=== PATIENT | male | born 1940 | race Caucasian/White ===

== ENCOUNTER 2017-01-23 11:40 | Observation (INO) | payer MEDICARE, OTHER ==
[~2017-01-23] VITALS: Ht 162.6 cm; Wt 91.0 kg
[2017-01-23] VITALS (9 sets, daily range): BP systolic 121–178; BP diastolic 58–75; PULSE 43–59; RESP 16–18; TEMP 97.5–98.6; O2SAT 92–98
--- NOTE | 2017-01-23 12:03 | PD ---
HPI Chief Complaint: Respiratory Symptoms Time Seen by Provider: 11:53 Travel History International Travel<30 days: No Contact w/Intl Traveler<30days: No Traveled to known affect area: No History of Present Illness HPI 76-year-old male with history of type 2 diabetes, hyperlipidemia, hypertension, GERD, gout, sleep apnea, PTSD, presents to emergency department today from the [place] for evaluation of bradycardia and hypotension. Patient had an appointment there for worsening shortness of breath, increased fatigue and exercise intolerance. He recently moved from [place] and today was his first visit there. Patient states his symptoms have been worsening over the last several weeks to months. He has been seen and evaluated up in [place]. He reports having a stress test in the last year that was normal. A recent illnesses, fever, or chills. Patient states that even the most minimal activity he is short of breath. He does take metoprolol and states his heart rate is typically in the low 50s but never as low as it was today. Denies any chest pain. States there have been times over the last several weeks where he's had a chest pressure that did not radiate anywhere but sat heavily on the left chest. He is having this symptom now. He has no other symptoms to report. PFSH Past Medical History Anxiety: Yes Depression: Yes Coronary Artery Disease: Yes Diabetes: Yes Respiratory: Yes (SLEEP APNEA) Social History Alcohol Use: No Tobacco Use: No Substance Use: No Allergies-Medications (Allergen,Severity, Reaction): Coded Allergies: No Known Allergies (Unverified , 01/23/17) Reported Meds & Prescriptions Reported Meds & Active Scripts Active Reported Flomax (Tamsulosin HCl) 0.4 Mg Cap 0.8 Mg PO HS Lopressor (Metoprolol Tartrate) 100 Mg Tab 100 Mg PO Q12HR Cozaar (Losartan Potassium) 100 Mg Tab 100 Mg PO DAILY Lidocaine Patch 12 HR (Lidocaine) 5 % Patch 1 Patch TOPICAL DAILY Remove patch after 12 hours Fluticasone Nasal [place] 50 Mcg/Act Naspr 2 [place] EACH NARE DAILY 50 mcg/spray Lipitor (Atorvastatin Calcium) 20 Mg Tab 10 Mg PO HS Amlodipine (Amlodipine Besylate) 10 Mg Tab 10 Mg PO DAILY Zoloft (Sertraline HCl) 100 Mg Tab 150 Mg PO DAILY Pramipexole (Pramipexole Dihydrochloride) 1 Mg Tab 1 Mg PO HS Omeprazole 20 Mg Tab 20 Mg PO DAILY Naprosyn (Naproxen) 500 Mg Tab 500 Mg PO BID Take with food or milk-Do not take meloxicam while taking this medication Ipratropium Nasal 0.06% [place] 2 [place] EACH NARE BID Capsaicin Topical (Capsaicin) 0.1% Cream 1 Applic TOPICAL DAILY PRN Wash hands immediately after use Bupropion HCl ER 24 HR (Bupropion HCl) 150 Mg Tab 150 Mg PO DAILY Aspirin Adult Low Strength (Aspirin) 81 Mg Tabdr 81 Mg PO DAILY Alprazolam 0.5 Mg Tab 0.5 Mg PO BID PRN Review of Systems Except as stated in HPI: all other systems reviewed are Neg Physical Exam Narrative GENERAL: Well-nourished male patient, lying in bed, in no acute distress. SKIN: Focused skin assessment warm/dry. HEAD: Atraumatic. Normocephalic. EYES: Pupils equal and round. No scleral icterus. No injection or drainage. ENT: No nasal bleeding or discharge. Mucous membranes pink and moist. NECK: Trachea midline. No JVD. CARDIOVASCULAR: Bradycardic rate and rhythm. RESPIRATORY: No accessory muscle use. Diminished, likely due to girth to auscultation. Breath sounds equal bilaterally. GASTROINTESTINAL: Abdomen soft, non-tender, nondistended. Hepatic and splenic margins not palpable. MUSCULOSKELETAL: No obvious deformities. No clubbing. No cyanosis. No edema. NEUROLOGICAL: Awake and alert. No obvious cranial nerve deficits. Motor grossly within normal limits. Normal speech. PSYCHIATRIC: Appropriate mood and affect; insight and judgment normal. Data Data Last Documented VS Vital Signs Date Time Temp Pulse Resp B/P (MAP) Pulse Ox O2 Delivery O2 Flow Rate FiO2 01/23/17 12:59 46 16 97 Nasal Cannula 2.00 01/23/17 11:43 97.5 Orders Orders Complete Blood Count With Diff (01/23/17 12:03) Basic Metabolic Panel (Bmp) (01/23/17 12:03) B-Type Natriuretic Peptide (01/23/17 12:03) Act Partial Throm Time (Ptt) (01/23/17 12:03) Prothrombin Time / Inr (Pt) (01/23/17 12:03) Magnesium (Mg) (01/23/17 12:03) Ckmb (Isoenzyme) Profile (01/23/17 12:03) Troponin I (01/23/17 12:03) Iv Access Insert/Monitor (01/23/17 12:03) Electrocardiogram (01/23/17 12:03) Ecg Monitoring (01/23/17 12:03) Oximetry (01/23/17 12:03) Oxygen Administration (01/23/17 12:03) Chest, Single Ap (01/23/17 12:03) CKMB (01/23/17 12:15) CKMB% (01/23/17 12:15) Labs Laboratory Tests Test 01/23/17 12:15 White Blood Count 8.4 TH/MM3 Red Blood Count 4.75 MIL/MM3 Hemoglobin 14.2 GM/DL Hematocrit 43.1 % Mean Corpuscular Volume 90.8 FL Mean Corpuscular Hemoglobin 29.9 PG Mean Corpuscular Hemoglobin Concent 32.9 % Red Cell Distribution Width 12.7 % Platelet Count 288 TH/MM3 Mean Platelet Volume 8.3 FL Neutrophils (%) (Auto) 75.3 % Lymphocytes (%) (Auto) 13.7 % Monocytes (%) (Auto) 8.7 % Eosinophils (%) (Auto) 1.5 % Basophils (%) (Auto) 0.8 % Neutrophils # (Auto) 6.3 TH/MM3 Lymphocytes # (Auto) 1.2 TH/MM3 Monocytes # (Auto) 0.7 TH/MM3 Eosinophils # (Auto) 0.1 TH/MM3 Basophils # (Auto) 0.1 TH/MM3 CBC Comment DIFF FINAL Differential Comment Prothrombin Time 10.8 SEC Prothromb Time International Ratio 1.0 RATIO Activated Partial Thromboplast Time 28.7 SEC Blood Urea Nitrogen 23 MG/DL Creatinine 1.32 MG/DL Random Glucose 111 MG/DL Calcium Level 9.4 MG/DL Magnesium Level 2.2 MG/DL Sodium Level 135 MEQ/L Potassium Level 4.7 MEQ/L Chloride Level 100 MEQ/L Carbon Dioxide Level 28.6 MEQ/L Anion Gap 6 MEQ/L Estimat Glomerular Filtration Rate 53 ML/MIN Total Creatine Kinase 286 U/L Creatine Kinase MB 5.9 NG/ML Troponin I LESS THAN 0.02 NG/ML B-Type Natriuretic Peptide 69 PG/ML MDM Medical Decision Making Medical Screen Exam Complete: Yes Emergency Medical Condition: Yes Medical Record Reviewed: Yes Differential Diagnosis CHF versus COPD versus anginal equivalent versus electrolyte abnormality versus neoplasm Narrative Course 76-year-old male presents to emergency department for evaluation from the [place]. Patient appears without distress. He is bradycardic here in the emergency department. Blood pressure is within normal limits. Laboratory Tests Test 01/23/17 12:15 White Blood Count 8.4 TH/MM3 Red Blood Count 4.75 MIL/MM3 Hemoglobin 14.2 GM/DL Hematocrit 43.1 % Mean Corpuscular Volume 90.8 FL Mean Corpuscular Hemoglobin 29.9 PG Mean Corpuscular Hemoglobin Concent 32.9 % Red Cell Distribution Width 12.7 % Platelet Count 288 TH/MM3 Mean Platelet Volume 8.3 FL Neutrophils (%) (Auto) 75.3 % Lymphocytes (%) (Auto) 13.7 % Monocytes (%) (Auto) 8.7 % Eosinophils (%) (Auto) 1.5 % Basophils (%) (Auto) 0.8 % Neutrophils # (Auto) 6.3 TH/MM3 Lymphocytes # (Auto) 1.2 TH/MM3 Monocytes # (Auto) 0.7 TH/MM3 Eosinophils # (Auto) 0.1 TH/MM3 Basophils # (Auto) 0.1 TH/MM3 CBC Comment DIFF FINAL Differential Comment Prothrombin Time 10.8 SEC Prothromb Time International Ratio 1.0 RATIO Activated Partial Thromboplast Time 28.7 SEC Blood Urea Nitrogen 23 MG/DL Creatinine 1.32 MG/DL Random Glucose 111 MG/DL Calcium Level 9.4 MG/DL Magnesium Level 2.2 MG/DL Sodium Level 135 MEQ/L Potassium Level 4.7 MEQ/L Chloride Level 100 MEQ/L Carbon Dioxide Level 28.6 MEQ/L Anion Gap 6 MEQ/L Estimat Glomerular Filtration Rate 53 ML/MIN Total Creatine Kinase 286 U/L Creatine Kinase MB 5.9 NG/ML Troponin I LESS THAN 0.02 NG/ML B-Type Natriuretic Peptide 69 PG/ML Last Impressions Chest X-Ray 01/23/17 1203 Signed Impressions: Service Date/Time: Monday, January 23, 2017 12:21 - CONCLUSION: The lungs are clear. Brice Call MD I have discussed the patient with my attending and we feel it would be in the best interest of the patient to admit observation of symptomatic bradycardia; consider holding metoprolol; and possibility of anginal equivocal. Plan is discussed with patient and his . They are in agreement with the splenic care. Diagnosis Primary Impression: Symptomatic bradycardia Admitting Information Admitting Physician Requests: Observation Condition: Stable Rosalinda Huddleston Jan 23, 2017 12:03
[2017-01-23] MEDS ORDERED: COZA100T PO (12:46)
[2017-01-23] MEDS ORDERED: OMEP20TA93 PO (12:46)
[2017-01-23] MEDS ORDERED: IPRA0.06 EACH NARE (12:46)
[2017-01-23] MEDS ORDERED: AMLO10TA2 PO (12:46)
[2017-01-23] MEDS ORDERED: PRAM1TAB PO (12:46)
[2017-01-23] MEDS ORDERED: LIDO1PAD52 TOPICAL (12:46)
[2017-01-23] MEDS ORDERED: CAPS0.1C2 TOPICAL (12:46)
[2017-01-23] MEDS ORDERED: NAPR500 PO (12:46)
[2017-01-23] MEDS ORDERED: ALPR0.5T3 PO (12:46)
[2017-01-23] MEDS ORDERED: ASPI81TA16 PO (12:46)
[2017-01-23] MEDS ORDERED: TAMS5CAP PO (12:46)
[2017-01-23] MEDS ORDERED: METO-338 PO (12:46)
[2017-01-23] MEDS ORDERED: LIPI20TA PO (12:46)
[2017-01-23] MEDS ORDERED: BUPR150T3 PO (12:46)
[2017-01-23] MEDS ORDERED: ZOLO100T PO (12:46)
[2017-01-23] MEDS ORDERED: FLUT50SP EACH NARE (12:46)
[2017-01-23 13:02] LABS: AUTOMATED NEUTROPHIL # 6.3 TH/MM3 (1.8-7.7); BASOPHIL # 0.1 TH/MM3 (0-0.2); BASOPHIL % 0.8 % (0.0-2.0); EOSINOPHIL # 0.1 TH/MM3 (0-0.4); EOSINOPHIL % 1.5 % (0.0-4.0); HEMATOCRIT 43.1 % (39.0-51.0); HEMOGLOBIN 14.2 GM/DL (13.0-17.0); LYMPH % 13.7 % (9.0-44.0); LYMPHOCYTE # 1.2 TH/MM3 (1.0-4.8); MEAN CELL VOLUME 90.8 FL (80.0-100.0); MEAN CORPUSCULAR HEMOGLOBIN 29.9 PG (27.0-34.0); MEAN CORPUSCULAR HGB CONC 32.9 % (32.0-36.0); MEAN PLATELET VOLUME 8.3 FL (7.0-11.0); MONO % 8.7 % (0.0-8.0); MONOCYTE # 0.7 TH/MM3 (0-0.9); NEUT % 75.3 % (16.0-70.0); PLATELET COUNT 288 TH/MM3 (150-450); RED BLOOD COUNT 4.75 MIL/MM3 (4.50-5.90); RED CELL DISTRIBUTION WIDTH 12.7 % (11.6-17.2); WHITE BLOOD COUNT 8.4 TH/MM3 (4.0-11.0)
--- NOTE | 2017-01-23 13:02 | RADRPT ---
EXAM DATE/TIME: 01/23/2017 12:21 [facility] COMPARISON: No previous studies available for comparison. INDICATIONS : Shortness of breath. MEDICAL HISTORY : Hypertension. SURGICAL HISTORY : None. ENCOUNTER: Initial ACUITY: 1 day PAIN SCORE: 0/10 LOCATION: Bilateral chest FINDINGS: A single view of the chest demonstrates the lungs to be symmetrically aerated without evidence of mas s, infiltrate or effusion. The cardiomediastinal contours are unremarkable. Osseous structures are intact. CONCLUSION: The lungs are clear. Brice Call MD on January 23, 2017 at 13:00 Board Certified Radiologist. This report was verified electronically.
[2017-01-23 13:12] LABS: PROTHROMBIN TIME - PATIENT 10.8 SEC (9.8-11.6)
[2017-01-23 13:20] LABS: BICARBONATE 28.6 MEQ/L (21.0-32.0); BLOOD UREA NITROGEN 23 MG/DL (7-18); CALCIUM 9.4 MG/DL (8.5-10.1); CHLORIDE 100 MEQ/L (98-107); CREATININE 1.32 MG/DL (0.60-1.30); GLOMERULAR FILTRATION RATE 53 ML/MIN (>89); GLUCOSE,RANDOM 111 MG/DL (74-106); MAGNESIUM 2.2 MG/DL (1.5-2.5); SODIUM (NA) 135 MEQ/L (136-145)
[2017-01-23 13:24] LABS: TROPONIN I LESS THAN 0.02 NG/ML (0.02-0.05)
[2017-01-23] MEDS ORDERED: SODIUM CHLORIDE 0.9% FLUSH 10 ML FLUSH IV FLUSH PRN (14:15)
[2017-01-23] MEDS ORDERED: BISACODYL 10 MG SUPP RECTAL PRN (14:15)
[2017-01-23] MEDS ORDERED: NALOXONE HCL 0.4 MG/ML AMP IV PUSH PRN (14:15)
[2017-01-23] MEDS ORDERED: SENNOSIDES 8.6 MG TAB PO PRN (14:15)
[2017-01-23] MEDS ORDERED: MAGNESIUM HYDROXIDE SUSP 30 ML CUP PO PRN (14:15)
[2017-01-23] MEDS ORDERED: LACTULOSE SYRUP 20 GM/30 ML CUP PO PRN (14:15)
[2017-01-23] MEDS ORDERED: DEXTROSE 50% IN WATER 50 ML VIAL(D50) IV PUSH PRN (14:30)
[2017-01-23] MEDS ORDERED: GLUCAGON 1 MG/ML VIAL OTHER PRN (14:30)
[2017-01-23] MEDS ORDERED: ALPRAZolam 0.5 MG TAB PO PRN (15:00)
[2017-01-23] MEDS ORDERED: PILL SPLITTER OTHER PRN (15:15)
--- NOTE | 2017-01-23 15:21 | HHI.HP ---
[facility] Hector Hubbard M.D. Admission Diagnosis SYMPTOMATIC BRADYCARDIA Diagnoses: Travel History International Travel<30 Days: No Contact w/Intl Traveler <30 Da: No Traveled to Known Affected Are: No History of Present Illness 76-year-old male with a history of CAD, diabetes, hypertension, who presents with a one-month history of shortness of breath, fatigue with exertion. He presented to primary care today, was found to have bradycardia with heart rate in the 40s, and was sent to the ER. He does report occasional hot flashes past week. Denies any chest pain. He does report a chronic nonproductive cough which has not changed. Patient did travel by car from [place] one month ago. Both he and are adamant that symptoms of shortness of breath with exertion began before his trip. He does report that bilateral calf pain with exertion began prior to eating [employer]. He is diagnosed with restless leg syndrome and takes pramipexole for this. Review of Systems Except as stated in HPI: all other systems reviewed are Neg Past Family Social History Past Medical History CAD. Catheterization 2000. Patient reports having a stress test 2 months ago and has not been told to results. Hypertension BPH Gout Restless leg syndrome Diabetes Patient reports history of provoked pulmonary embolism following back surgery years ago. Past Surgical History Transurethral prostatectomy Foot surgery Right cataract surgery Septorhinoplasty Inguinal hernia repair Carpal tunnel repair L4-5 microdiscectomy Heart catheterization with angioplasty 2000 Tonsillectomy and adenoidectomy Right arm surgery 1964. Reported Medications Reported Meds & Active Scripts Active Reported Flomax (Tamsulosin HCl) 0.4 Mg Cap 0.8 Mg PO HS Lopressor (Metoprolol Tartrate) 100 Mg Tab 100 Mg PO Q12HR Cozaar (Losartan Potassium) 100 Mg Tab 100 Mg PO DAILY Lidocaine Patch 12 HR (Lidocaine) 5 % Patch 1 Patch TOPICAL DAILY Remove patch after 12 hours Fluticasone Nasal [place] 50 Mcg/Act Naspr 2 [place] EACH NARE DAILY 50 mcg/spray Lipitor (Atorvastatin Calcium) 20 Mg Tab 10 Mg PO HS Amlodipine (Amlodipine Besylate) 10 Mg Tab 10 Mg PO DAILY Zoloft (Sertraline HCl) 100 Mg Tab 150 Mg PO DAILY Pramipexole (Pramipexole Dihydrochloride) 1 Mg Tab 1 Mg PO HS Omeprazole 20 Mg Tab 20 Mg PO DAILY Naprosyn (Naproxen) 500 Mg Tab 500 Mg PO BID Take with food or milk-Do not take meloxicam while taking this medication Ipratropium Nasal 0.06% [place] 2 [place] EACH NARE BID Capsaicin Topical (Capsaicin) 0.1% Cream 1 Applic TOPICAL DAILY PRN Wash hands immediately after use Bupropion HCl ER 24 HR (Bupropion HCl) 150 Mg Tab 150 Mg PO DAILY Aspirin Adult Low Strength (Aspirin) 81 Mg Tabdr 81 Mg PO DAILY Alprazolam 0.5 Mg Tab 0.5 Mg PO BID PRN Allergies: Coded Allergies: No Known Allergies (Unverified , 01/23/17) Family History Mother with history of hypertension, diabetes Social History Previous smoker. Quit 2000. Nondrinker. Denies illicit drugs. Lives with . Recently moved from [place] one month ago. Physical Exam Vital Signs Vital Signs Date Time Temp Pulse Resp B/P (MAP) Pulse Ox O2 Delivery O2 Flow Rate FiO2 01/23/17 12:59 46 16 97 Nasal Cannula 2.00 01/23/17 12:25 44 16 121/58 (79) 98 Nasal Cannula 2.00 01/23/17 12:24 98 Nasal Cannula 2.00 01/23/17 12:06 43 16 93 Nasal Cannula 2.00 01/23/17 11:43 97.5 43 16 131/63 (85) 93 Physical Exam GENERAL: This is a well-nourished, well-developed patient, he appears slightly flushed. Alert and oriented 3. SKIN: No rashes, ecchymoses or lesions. Cool and dry. HEAD: Atraumatic. Normocephalic. No temporal or scalp tenderness. EYES: Pupils equal round and reactive. Extraocular motions intact. No scleral icterus. No injection or drainage. ENT: Nose without bleeding, purulent drainage or septal hematoma. Throat without erythema, tonsillar hypertrophy or exudate. Uvula midline. Airway patent. NECK: Trachea midline. No JVD or lymphadenopathy. Supple, nontender, no meningeal signs. CARDIOVASCULAR: Regular rate and rhythm without murmurs, gallops, or rubs. RESPIRATORY: Clear to auscultation. Breath sounds equal bilaterally. No wheezes , rales, or rhonchi. GASTROINTESTINAL: Abdomen soft, non-tender, nondistended. No hepato-splenomegaly , or palpable masses. No guarding. MUSCULOSKELETAL: Extremities without clubbing, cyanosis, or edema. No joint tenderness, effusion, or edema noted. Patient does report calf tenderness to palpation bilaterally. This does not appear to be severe however. NEUROLOGICAL: Awake and alert. Cranial nerves II through XII intact. Motor and sensory grossly within normal limits. Five out of 5 muscle strength in all muscle groups. Normal speech. Laboratory Laboratory Tests Test 01/23/17 12:15 White Blood Count 8.4 Red Blood Count 4.75 Hemoglobin 14.2 Hematocrit 43.1 Mean Corpuscular Volume 90.8 Mean Corpuscular Hemoglobin 29.9 Mean Corpuscular Hemoglobin Concent 32.9 Red Cell Distribution Width 12.7 Platelet Count 288 Mean Platelet Volume 8.3 Neutrophils (%) (Auto) 75.3 Lymphocytes (%) (Auto) 13.7 Monocytes (%) (Auto) 8.7 Eosinophils (%) (Auto) 1.5 Basophils (%) (Auto) 0.8 Neutrophils # (Auto) 6.3 Lymphocytes # (Auto) 1.2 Monocytes # (Auto) 0.7 Eosinophils # (Auto) 0.1 Basophils # (Auto) 0.1 CBC Comment DIFF FINAL Differential Comment Prothrombin Time 10.8 Prothromb Time International Ratio 1.0 Activated Partial Thromboplast Time 28.7 Blood Urea Nitrogen 23 Creatinine 1.32 Random Glucose 111 Calcium Level 9.4 Magnesium Level 2.2 Sodium Level 135 Potassium Level 4.7 Chloride Level 100 Carbon Dioxide Level 28.6 Anion Gap 6 Estimat Glomerular Filtration Rate 53 Total Creatine Kinase 286 Creatine Kinase MB 5.9 Troponin I LESS THAN 0.02 B-Type Natriuretic Peptide 69 Result Diagram: 01/23/17 1215 01/23/17 1215 Imaging Last Impressions Chest X-Ray 01/23/17 1203 Signed Impressions: Service Date/Time: Monday, January 23, 2017 12:21 - CONCLUSION: The lungs are clear. MD Toyin Hernandez VTE Risk Assessment Caprini VTE Risk Assessment: Mod/High Risk (score >= 2) Caprini Risk Assessment Model Point Value = 1 Point Value = 2 Point Value = 3 Point Value = 5 Age 41-60 Minor surgery BMI > 25 kg/m2 Swollen legs Varicose veins or History of unexplained or recurrent spontaneous Oral contraceptives or hormone replacement Sepsis (< 1 month) Serious lung disease, including pneumonia (< 1 month) Abnormal pulmonary function Acute myocardial infarction Congestive heart failure (< 1 month) History of inflammatory bowel disease Medical patient at bed rest Age 61-74 Arthroscopic surgery Major open surgery (> 45 min) Laparoscopic surgery (> 45 min) Malignancy Confined to bed (> 72 hours) Immobilizing plaster cast Central venous access Age >= 75 History of VTE Family history of VTE Factor V Leiden Prothrombin [id number] Lupus anticoagulant Anticardiolipin antibodies Elevated serum homocysteine Heparin-induced thrombocytopenia Other congenital or acquired thrombophilia Stroke (< 1 month) Elective arthroplasty Hip, pelvis, or leg fracture Acute spinal cord injury (< 1 month) Prophylaxis Regimen Total Risk Factor Score Risk Level Prophylaxis Regimen 0-1 Low Early ambulation 2 Moderate Order ONE of the following: *Sequential Compression Device (SCD) *Heparin 5000 units SQ BID 3-4 Higher Order ONE of the following medications: *Heparin 5000 units SQ TID *Enoxaparin/Lovenox 40 mg SQ daily (WT < 150 kg, CrCl > 30 mL/min) *Enoxaparin/Lovenox 30 mg SQ daily (WT < 150 kg, CrCl > 10-29 mL/min) *Enoxaparin/Lovenox 30 mg SQ BID (WT < 150 kg, CrCl > 30 mL/min) AND/OR *Sequential Compression Device (SCD) 5 or more Highest Order ONE of the following medications: *Heparin 5000 units SQ TID (Preferred with Epidurals) *Enoxaparin/Lovenox 40 mg SQ daily (WT < 150 kg, CrCl > 30 mL/min) *Enoxaparin/Lovenox 30 mg SQ daily (WT < 150 kg, CrCl > 10-29 mL/min) *Enoxaparin/Lovenox 30 mg SQ BID (WT < 150 kg, CrCl > 30 mL/min) AND *Sequential Compression Device (SCD) Assessment and Plan Assessment and Plan //Symptomatic bradycardia -Her in the 40s on presentation. -Chest x-ray with lungs clear. -Electrolytes within normal limits. Calcium 9.4. Magnesium 2.2. - On metoprolol. We'll hold metoprolol at this time. Place on telemetry. -Outside records pending. //Renal insufficiency. Creatinine 1.3. Unknown baseline. Records pending. //Gout. With recent flare. Improving.monitor. //BPH. Continue Flomax //hyperLipidemia. Continue statin //Hypertension. Systolic blood pressure reviewed and acceptable. Continue home regimen. //Depression. //Anxiety Chronic. No SI. Continue sertraline. Continue bupropion. //Diabetes. The right diet. Insulin sliding scale. Order A1c //Restless leg syndrome. //Bilateral Leg pain -This is most likely claudication. This appears to be chronic, however Given recent trip, We'll order ultrasound to rule out DVT. //GERD. Chronic. Continue PPI. //Suspected Bilateral leg claudication. Bilateral calfs. This being going on for over 2 months, [facility]. //Prophylaxis. Patient with history of provoked pulmonary embolism following surgery years ago. We'll place on heparin. Discussed Condition With Patient, nurse, ED physician. Yonis Dickson MD Jan 23, 2017 15:20
--- NOTE | 2017-01-23 16:12 | RADRPT ---
EXAM DATE/TIME: 01/23/2017 15:27 [facility] COMPARISON: No previous studies available for comparison. INDICATIONS : Bilateral leg pain. MEDICAL HISTORY : Hypertension. Gastroesophageal reflux disease. Sleep apnea. Coronary artery disease. Diabetes. Depre ssion. Anxiety. Hyperlipidemia. SURGICAL HISTORY : None. ENCOUNTER: Initial ACUITY: 1 month PAIN SCORE: 7/10 LOCATION: Bilateral legs. TECHNIQUE: Venous ultrasound of the left and right leg was performed from the inguinal ligament to the proximal calf. Real-time, color Doppler and spectral tracing, compression and augmentation techniques were us ed. FINDINGS: RIGHT LEG: There is normal compressibility of the deep venous system from the inguinal region to the proximal ca lf. No echogenic clot is seen in the lumen of the common femoral, femoral, popliteal, and posterior tibial veins. There is a normal response of the venous system to proximal and distal augmentation an d respiration. LEFT LEG: There is normal compressibility of the deep venous system from the inguinal region to the proximal ca lf. No echogenic clot is seen in the lumen of the common femoral, femoral, popliteal, and posterior tibial veins. There is a normal response of the venous system to proximal and distal augmentation an d respiration. CONCLUSION: 1. No sonographic evidence for lower extremity DVT. Ronald Estrada MD on January 23, 2017 at 16:10 Board Certified Radiologist. This report was verified electronically.
[2017-01-23] MEDS: INSULIN ASPART SUPPLEMENTAL SCALE SQ SCH ×2 (17:00→21:00)
--- NOTE | 2017-01-23 17:47 | EKG ---
Date Performed: 01/23/2017 Time Performed: 12:04:58 PTAGE: 76 years EKG: SINUS BRADYCARDIA BORDERLINE ECG NO PREVIOUS TRACING DOCTOR: Ranjeet Richmond Interpretating Date/Time 01/23/2017 17:47:05
--- NOTE | 2017-01-23 17:47 | EKG ---
Date Performed: 01/23/2017 Time Performed: 12:04:58 PTAGE: 76 years EKG: SINUS BRADYCARDIA BORDERLINE ECG NO PREVIOUS TRACING DOCTOR: Ranjeet Richmond Interpretating Date/Time 01/23/2017 17:47:05
--- NOTE | 2017-01-23 17:47 | EKG ---
Date Performed: 01/23/2017 Time Performed: 12:04:58 PTAGE: 76 years EKG: SINUS BRADYCARDIA BORDERLINE ECG NO PREVIOUS TRACING DOCTOR: Ranjeet Richmond Interpretating Date/Time 01/23/2017 17:47:05
[2017-01-23] MEDS: TAMSULOSIN HCL 0.4 MG CAP PO SCH (20:57)
[2017-01-23] MEDS: SODIUM CHLORIDE 0.9% FLUSH 10 ML FLUSH IV FLUSH SCH (20:58)
[2017-01-23] MEDS: PRAMIPEXOLE DIHYDROCHLORIDE 1 MG TAB PO SCH (20:58)
[2017-01-23] MEDS: ATORVASTATIN 10 MG TAB PO SCH (20:58)
[2017-01-23] MEDS: HEPARIN SODIUM - SQ 10,000 UNITS/ML VIAL SQ SCH (20:59)
[2017-01-24] VITALS (9 sets, daily range): BP systolic 160–191; BP diastolic 69–84; PULSE 49–62; RESP 16–18; TEMP 97.6–98.6; O2SAT 93–97
--- NOTE | 2017-01-24 05:58 | MB ---
cc: BARRY FRANCOIS DO DATE OF CONSULTATION January 23, 2017 REASON FOR CONSULTATION Symptomatic bradycardia. HISTORY OF PRESENT ILLNESS Leo Norris is a pleasant 76-year-old male who presented to [facility] Emergency Room on January 23, 2017, due to shortness of breath and fatigue with exertion. He recently moved down here from [place] and was visiting the [place] for the first time. He was noted to be bradycardic and hypotensive. Because of this he was recommended to be evaluated in the emergency room. On arrival here his heart rates were noted to be in the 40s to 50s with a relatively normal blood pressure. In talking to him he states that he has been somewhat short of breath and fatigued more than anything. The shortness of breath does come on with exertion and the fatigue has been going on for quite some time. He denies chest pain. He states that he recently underwent a stress test around two months ago at the [facility] but is yet to get results. Lastly he gets bilateral calf pain with exertion from walking 20-50 feet. PAST MEDICAL HISTORY 1. Coronary artery disease. 2. Hypertension. 3. BPH. 4. Gout. 5. Restless leg syndrome. 6. Diabetes. 7. Provoked pulmonary embolism. PAST SURGICAL HISTORY 1. Cardiac catheterization with angioplasty (2000) with unknown anatomy. 2. Transurethral prostatectomy. 3. Foot surgery. 4. Right cataract surgery. 5. Septorhinoplasty. 6. Inguinal hernia repair. 7. Carpal tunnel repair. 8. L4/5 microdiskectomy. 9. Tonsil and adenoidectomy. 10. Right arm surgery (1964). ALLERGIES No known drug allergies. MEDICATIONS 1. Flomax 0.8 mg every night. 2. Lipitor 10 mg every night. 3. Lopressor 100 mg every 12 hours. 4. Norvasc 10 mg daily. 5. Cozaar 100 mg daily. 6. Aspirin 81 mg daily. 7. Naprosyn 500 mg b.i.d. 8. Buspirone 150 mg daily. 9. Zoloft 150 mg daily. 10. Xanax 0.5 mg b.i.d. as needed for anxiety. 11. Pramipexole 1 mg every night. 12. Fluticasone 2 sprays each naris daily. 13. Ipratropium two sprays each naris b.i.d. 14. Omeprazole 20 mg daily. 15. Lidocaine patch daily. FAMILY HISTORY Denies sudden cardiac or premature coronary artery disease within the family. SOCIAL HISTORY The patient previously smoked but quit in 2000. Denies alcohol or drug abuse. REVIEW OF SYSTEMS 14-systems were reviewed including osteopathic pertinent positives and negatives above, otherwise negative. PHYSICAL EXAMINATION VITAL SIGNS: Temperature 97.6, heart rate 50, blood pressure 178/75, respirations 16, pulse ox 92% on 2 liters. IN GENERAL: The patient appears well, in no acute distress. Alert, awake and oriented x3. Extraocular muscles intact. Mucous membranes moist. NECK: Supple. No JVD at 45 degrees. No carotid bruits heard bilaterally. Carotid upstroke is brisk in nature. HEART: Bradycardic but regular in rhythm. No noted murmurs. LUNGS: Clear to auscultation bilaterally. No wheezes, rales or rhonchi. ABDOMEN: Soft, nontender, nondistended. No organomegaly noted. EXTREMITIES: No clubbing, cyanosis or edema. Femoral pulses intact. Distal pulses somewhat diminished bilaterally. SKIN: Warm, dry and intact. NEUROLOGICALLY: No focal deficits. OSTEOPATHIC: No kyphoscoliosis, lordosis or paraspinal tender points. LABORATORY FINDINGS Hemoglobin 14.2, hematocrit 43.1, platelets 288. Potassium 4.7, BUN 23, creatinine 1.32, troponin 0.02. BNP 69. ELECTROCARDIOGRAM (January 23, 2017 at 12:04) Sinus bradycardia at 42 beats per minute, no acute ST-T wave changes. IMPRESSION 1. Symptomatic bradycardia. 2. Bradycardia secondary to beta nicol therapy. 3. Hypertension. 4. Renal insufficiency. 5. Claudication with exertion. 6. Hyperlipidemia. 7. Hypertension. 8. History of coronary artery disease. RECOMMENDATIONS 1. Mr. Norris appears to have symptomatic bradycardia and this is most likely due to being on large doses of beta blockers and possible diminishment of his cardio-electric system. 2. We will plan on holding his beta nicol therapy for now as he believes he is only on this for his hypertension. 3. We will check a 2-D echo to look at his overall left ventricular function, cardiac structure and possible valvopathies. 4. We will attempt to get records from his recent stress test at the [facility] for his shortness of breath with exertion. 5. As far as his claudication goes, upon discharge he [facility] and peripheral [facility] as the patient is significantly symptomatic. 6. Further recommendations will be made based on the hospital course. Thank you for allowing me to see Leo Norris. If there are any questions, please do not hesitate to call. Barry Francois DO VGP/SSB /5:50 PM /5:44 AM
[2017-01-24] MEDS: INSULIN ASPART SUPPLEMENTAL SCALE SQ SCH ×4 (08:00→21:00)
[2017-01-24] MEDS: PANTOPRAZOLE SOD 20 MG DELAYED RELEASE TAB PO SCH (08:43)
[2017-01-24] MEDS: ASPIRIN EC 81 MG TABEC PO SCH (08:43)
[2017-01-24] MEDS: SERTRALINE HCL 100 MG TAB PO SCH (08:43)
[2017-01-24] MEDS: LOSARTAN 50 MG TAB PO SCH (08:43)
[2017-01-24] MEDS: buPROPion HCL 150 MG SUSTAINED RELEASE TAB PO SCH (08:43)
[2017-01-24] MEDS: HEPARIN SODIUM - SQ 10,000 UNITS/ML VIAL SQ SCH ×2 (08:44→21:07)
[2017-01-24] MEDS ORDERED: INFLUENZA VIRUS VACCINE (QUADRIVALENT) 0.5 ML SYR IM ONE (10:00)
[2017-01-24 10:22] LABS: AUTOMATED NEUTROPHIL # 4.5 TH/MM3 (1.8-7.7); BASOPHIL # 0.1 TH/MM3 (0-0.2); BASOPHIL % 0.9 % (0.0-2.0); EOSINOPHIL # 0.2 TH/MM3 (0-0.4); HEMATOCRIT 40.9 % (39.0-51.0); HEMOGLOBIN 13.9 GM/DL (13.0-17.0); LYMPH % 20.2 % (9.0-44.0); LYMPHOCYTE # 1.4 TH/MM3 (1.0-4.8); MEAN CELL VOLUME 89.2 FL (80.0-100.0); MEAN CORPUSCULAR HEMOGLOBIN 30.3 PG (27.0-34.0); MEAN PLATELET VOLUME 8.4 FL (7.0-11.0); MONO % 10.5 % (0.0-8.0); MONOCYTE # 0.7 TH/MM3 (0-0.9); NEUT % 65.4 % (16.0-70.0); PLATELET COUNT 257 TH/MM3 (150-450); RED BLOOD COUNT 4.58 MIL/MM3 (4.50-5.90); RED CELL DISTRIBUTION WIDTH 12.8 % (11.6-17.2); WHITE BLOOD COUNT 6.9 TH/MM3 (4.0-11.0)
[2017-01-24] MEDS: FLUTICASONE PROPIONATE 50 MCG/ACT 16 GM NASAL SPRAY EACH NARE SCH (10:32)
[2017-01-24] MEDS: SODIUM CHLORIDE 0.9% FLUSH 10 ML FLUSH IV FLUSH SCH ×2 (10:33→21:07)
[2017-01-24 11:13] LABS: ALBUMIN 3.5 GM/DL (3.4-5.0); AST (GOT) 32 U/L (15-37); BICARBONATE 29.1 MEQ/L (21.0-32.0); CHLORIDE 100 MEQ/L (98-107); CREATININE 1.03 MG/DL (0.60-1.30); GLOMERULAR FILTRATION RATE 71 ML/MIN (>89); SODIUM (NA) 135 MEQ/L (136-145)
--- NOTE | 2017-01-24 11:23 | HHI.PR ---
Subjective Remarks Follow up for SOB, fatigue, bradycardia. The patient reports continued fatigue and shortness of breath today, not much improved compared to yesterday. Dyspnea worse on exertion. Denies orthopnea or lower extremity edema. Denies fevers/ chills or cough. HR slightly improved, currently in the low 50s. The patient denies any other medical complaints at this time. He lives at home with his fiance. Objective Vitals Vital Signs Date Time Temp Pulse Resp B/P (MAP) Pulse Ox O2 Delivery O2 Flow Rate FiO2 01/24/17 07:45 97.7 54 16 191/84 (119) 94 01/24/17 07:30 49 01/24/17 04:11 178/80 (112) 01/24/17 03:59 55 01/24/17 03:59 97.6 57 18 94 01/24/17 00:01 52 01/23/17 23:50 98.6 59 18 131/63 (85) 94 01/23/17 19:56 98.4 55 18 129/62 (84) 92 01/23/17 19:20 47 01/23/17 16:40 51 01/23/17 16:18 97.6 50 16 178/75 (109) 92 01/23/17 15:15 49 16 139/72 (94) 97 Nasal Cannula 2.00 01/23/17 12:59 46 16 97 Nasal Cannula 2.00 01/23/17 12:25 44 16 121/58 (79) 98 Nasal Cannula 2.00 01/23/17 12:24 98 Nasal Cannula 2.00 01/23/17 12:06 43 16 93 Nasal Cannula 2.00 01/23/17 11:43 97.5 43 16 131/63 (85) 93 I/O 01/23/17 01/23/17 01/23/17 01/24/17 01/24/17 01/24/17 07:00 15:00 23:00 07:00 15:00 23:00 Intake Total 240 ml 240 ml Output Total 700 ml 200 ml Balance 240 ml -460 ml -200 ml Intake Oral 240 ml 240 ml Output Urine Total 700 ml 200 ml Result Diagram: 01/24/1725 01/23/170 Imaging Last Impressions Chest X-Ray 01/23/17 120 Signed Impressions: Service Date/Time: Monday, January 23, 2017 12:21 - CONCLUSION: The lungs are clear. Brice Call MD Lower Extremity Ultrasound 01/23/17 0000 Signed Impressions: Service Date/Time: Monday, January 23, 2017 15:27 - CONCLUSION: 1. No sonographic evidence for lower extremity DVT. Ronald Estrada MD Objective Remarks GENERAL: Well-nourished, well-developed pleasant elderly male patient in [facility]. SKIN: Warm and dry. No rash. HEENT: Normocephalic. Atraumatic. Pupils equal and round. Mucous membranes pink and moist. NECK: Supple. Trachea midline. Old tracheostomy scar well healed. CARDIOVASCULAR: Bradycardic, regular rhythm. S1, S2 noted. No murmur appreciated. RESPIRATORY: No accessory muscle use. Clear to auscultation. Breath sounds equal bilaterally. GASTROINTESTINAL: Abdomen soft, non-tender, nondistended. Normoactive bowel sounds x4. MUSCULOSKELETAL: No obvious deformities. Extremities without clubbing, cyanosis , or edema. NEUROLOGICAL: Awake and alert. No obvious cranial nerve deficits. Motor grossly within normal limits. Moves all extremities spontaneously. Normal speech. PSYCHIATRIC: Appropriate mood and affect; insight and judgment normal. Medications and IVs Current Medications Medications (Trade) Dose Ordered Sig/Mehreen Route Start Time Stop Time Status Last Admin (NS Flush) 2 ml UNSCH PRN IV FLUSH 01/23/17 14:15 (NS Flush) 2 ml BID IV FLUSH 01/23/17 21:00 01/24/17 10:33 (Narcan Inj) 0.4 mg UNSCH PRN IV PUSH 01/23/17 14:15 (Milk Of Magnesia Liq) 30 ml Q12H PRN PO 01/23/17 14:15 (Senokot) 17.2 mg Q12H PRN PO 01/23/17 14:15 (Dulcolax Supp) 10 mg DAILY PRN RECTAL 01/23/17 14:15 (Lactulose Liq) 30 ml DAILY PRN PO 01/23/17 14:15 (NovoLOG SUPPLEMENTAL SCALE) 1 ACHS SLIDING SCALE SQ 01/23/17 17:00 (D50w (Vial) Inj) 50 ml UNSCH PRN IV PUSH 01/23/17 14:30 (Glucagon Inj) 1 mg UNSCH PRN OTHER 01/23/17 14:30 (Xanax) 0.5 mg BID PRN PO 01/23/17 15:00 (Ecotrin Ec) 81 mg DAILY PO 01/24/17 09:00 01/24/17 08:43 (Lipitor) 10 mg HS PO 01/23/17 21:00 01/23/17 20:58 (Wellbutrin Sr) 150 mg DAILY PO 01/24/17 09:00 01/24/17 08:43 (Flonase Rob Spr) 2 spray DAILY EACH NARE 01/24/17 09:00 01/24/17 10:32 (Cozaar) 100 mg DAILY PO 01/24/17 09:00 01/24/17 08:43 (Mirapex) 1 mg HS PO 01/23/17 21:00 01/23/17 20:58 (Zoloft) 150 mg DAILY PO 01/24/17 09:00 01/24/17 08:43 (Flomax) 0.8 mg HS PO 01/23/17 21:00 01/23/17 20:57 (Protonix) 20 mg DAILY PO 01/24/17 09:00 01/24/17 08:43 (Pill Splitter) 1 ea UNSCH PRN OTHER 01/23/17 15:15 (Heparin Inj) 5,000 units Q12HR SQ 01/23/17 21:00 01/24/17 08:44 A/P Problem List: (1) Symptomatic bradycardia ICD Code: R00.1 - Bradycardia, unspecified Status: Acute Assessment and Plan 76-year-old male with history of CAD, DM, HTN, presents with SOB and fatigue with exertion. Shortness of Breath/Fatigue: suspect secondary to symptomatic bradycardia, see below. -Consult PT. -Monitor vitals, currently O2 sat 94% on room air Symptomatic Bradycardia: secondary to beta nicol therapy. HR in 40s upon arrival. -hold patient's metoprolol -monitor on telemetry -consult cardiology Dr. Ricardo, appreciate recommendations -slightly improved, HR currently in low 50s, continue to monitor -check echocardiogram Hypertension: chronic, BP labile -holding patient's metoprolol as above -continue patient's losartan 100mg daily -restart patient's amlodipine 10mg daily -Monitor BP, adjust antihypertensives as needed NAA: Cr 1.32, no previous labs to compare, suspect secondary to dehydration -encourage oral hydration -repeat labs show improvement with Cr 1.03 -avoid nephrotoxins Lower Extremity Claudication: ongoing x2 months however with recent travel, will need to rule out DVT -BLE Doppler U/S reviewed, negative for DVT -cardiology consulted, recommended outpatient f/up for ABIs and angiogram CAD: chronic, no complaints of chest pain, troponin negative -continue patient' aspirin, statin, ARB -unable to tolerate BB secondary to bradycardia as above DVT Prophylaxis: heparin sq Dorie Hernandez PA-C Jan 24, 2017 11:23
[2017-01-24 11:35] LABS: ALKALINE PHOSPHATASE 78 U/L (45-117); ALT (GPT) 49 U/L (12-78); BLOOD UREA NITROGEN 18 MG/DL (7-18); GLUCOSE,RANDOM 91 MG/DL (74-106); TOTAL BILIRUBIN ADULT 0.5 MG/DL (0.2-1.0); TOTAL PROTEIN 7.2 GM/DL (6.4-8.2)
--- NOTE | 2017-01-24 12:21 | PD.CARD.PN ---
Subjective Subjective Remarks Doing well Still fatigued, no chest pain, no sob Heart rates mildly better Objective Medications Current Medications Medications (Trade) Dose Ordered Sig/Mehreen Route Start Time Stop Time Status Last Admin (NS Flush) 2 ml UNSCH PRN IV FLUSH 01/23/17 14:15 (NS Flush) 2 ml BID IV FLUSH 01/23/17 21:00 01/24/17 10:33 (Narcan Inj) 0.4 mg UNSCH PRN IV PUSH 01/23/17 14:15 (Milk Of Magnesia Liq) 30 ml Q12H PRN PO 01/23/17 14:15 (Senokot) 17.2 mg Q12H PRN PO 01/23/17 14:15 (Dulcolax Supp) 10 mg DAILY PRN RECTAL 01/23/17 14:15 (Lactulose Liq) 30 ml DAILY PRN PO 01/23/17 14:15 (NovoLOG SUPPLEMENTAL SCALE) 1 ACHS SLIDING SCALE SQ 01/23/17 17:00 (D50w (Vial) Inj) 50 ml UNSCH PRN IV PUSH 01/23/17 14:30 (Glucagon Inj) 1 mg UNSCH PRN OTHER 01/23/17 14:30 (Xanax) 0.5 mg BID PRN PO 01/23/17 15:00 (Ecotrin Ec) 81 mg DAILY PO 01/24/17 09:00 01/24/17 08:43 (Lipitor) 10 mg HS PO 01/23/17 21:00 01/23/17 20:58 (Wellbutrin Sr) 150 mg DAILY PO 01/24/17 09:00 01/24/17 08:43 (Flonase Rob Spr) 2 spray DAILY EACH NARE 01/24/17 09:00 01/24/17 10:32 (Cozaar) 100 mg DAILY PO 01/24/17 09:00 01/24/17 08:43 (Mirapex) 1 mg HS PO 01/23/17 21:00 01/23/17 20:58 (Zoloft) 150 mg DAILY PO 01/24/17 09:00 01/24/17 08:43 (Flomax) 0.8 mg HS PO 01/23/17 21:00 01/23/17 20:57 (Protonix) 20 mg DAILY PO 01/24/17 09:00 01/24/17 08:43 (Pill Splitter) 1 ea UNSCH PRN OTHER 01/23/17 15:15 (Heparin Inj) 5,000 units Q12HR SQ 01/23/17 21:00 01/24/17 08:44 (Apresoline) 50 mg Q8HR PO 01/24/17 14:00 Vital Signs / I&O Vital Signs Date Time Temp Pulse Resp B/P (MAP) Pulse Ox O2 Delivery O2 Flow Rate FiO2 01/24/17 11:31 97.6 56 16 164/69 (100) 97 01/24/17 07:45 97.7 54 16 191/84 (119) 94 01/24/17 07:30 49 01/24/17 04:11 178/80 (112) 01/24/17 03:59 55 01/24/17 03:59 97.6 57 18 94 01/24/17 00:01 52 01/23/17 23:50 98.6 59 18 131/63 (85) 94 01/23/17 19:56 98.4 55 18 129/62 (84) 92 01/23/17 19:20 47 01/23/17 16:40 51 01/23/17 16:18 97.6 50 16 178/75 (109) 92 01/23/17 15:15 49 16 139/72 (94) 97 Nasal Cannula 2.00 01/23/17 12:59 46 16 97 Nasal Cannula 2.00 01/23/17 12:25 44 16 121/58 (79) 98 Nasal Cannula 2.00 01/23/17 12:24 98 Nasal Cannula 2.00 I/O 01/23/17 01/23/17 01/23/17 01/24/17 01/24/17 01/24/17 07:00 15:00 23:00 07:00 15:00 23:00 Intake Total 240 ml 240 ml Output Total 700 ml 200 ml Balance 240 ml -460 ml -200 ml Intake Oral 240 ml 240 ml Output Urine Total 700 ml 200 ml Physical Exam GENERAL: NAD, AAOx3 SKIN: Warm and dry. HEAD: Atraumatic. Normocephalic. EYES: Pupils equal and round. No scleral icterus. No injection or drainage. ENT: No nasal bleeding or discharge. Mucous membranes pink and moist. NECK: Trachea midline. No JVD. CARDIOVASCULAR: Regular rate and rhythm. RESPIRATORY: No accessory muscle use. Clear to auscultation. Breath sounds equal bilaterally. GASTROINTESTINAL: Abdomen soft, non-tender, nondistended. Hepatic and splenic margins not palpable. MUSCULOSKELETAL: Extremities without clubbing, cyanosis, or edema. No obvious deformities. Decreased pulses bilaterally NEUROLOGICAL: Awake and alert. No obvious cranial nerve deficits. Motor grossly within normal limits. Five out of 5 muscle strength in the arms and legs. Normal speech. PSYCHIATRIC: Appropriate mood and affect; insight and judgment normal. Laboratory Laboratory Tests Test 01/24/17 09:25 White Blood Count 6.9 TH/MM3 Red Blood Count 4.58 MIL/MM3 Hemoglobin 13.9 GM/DL Hematocrit 40.9 % Mean Corpuscular Volume 89.2 FL Mean Corpuscular Hemoglobin 30.3 PG Mean Corpuscular Hemoglobin Concent 34.0 % Red Cell Distribution Width 12.8 % Platelet Count 257 TH/MM3 Mean Platelet Volume 8.4 FL Neutrophils (%) (Auto) 65.4 % Lymphocytes (%) (Auto) 20.2 % Monocytes (%) (Auto) 10.5 % Eosinophils (%) (Auto) 3.0 % Basophils (%) (Auto) 0.9 % Neutrophils # (Auto) 4.5 TH/MM3 Lymphocytes # (Auto) 1.4 TH/MM3 Monocytes # (Auto) 0.7 TH/MM3 Eosinophils # (Auto) 0.2 TH/MM3 Basophils # (Auto) 0.1 TH/MM3 CBC Comment DIFF FINAL Differential Comment Blood Urea Nitrogen 18 MG/DL Creatinine 1.03 MG/DL Random Glucose 91 MG/DL Total Protein 7.2 GM/DL Albumin 3.5 GM/DL Calcium Level 9.0 MG/DL Alkaline Phosphatase 78 U/L Aspartate Amino Transf (AST/SGOT) 32 U/L Alanine Aminotransferase (ALT/SGPT) 49 U/L Total Bilirubin 0.5 MG/DL Sodium Level 135 MEQ/L Potassium Level 4.1 MEQ/L Chloride Level 100 MEQ/L Carbon Dioxide Level 29.1 MEQ/L Anion Gap 6 MEQ/L Estimat Glomerular Filtration Rate 71 ML/MIN Assessment and Plan Problem List: (1) Symptomatic bradycardia ICD Codes: R00.1 - Bradycardia, unspecified Status: Acute (2) HTN (hypertension) ICD Codes: I10 - Essential (primary) hypertension (3) PAD (peripheral artery disease) ICD Codes: I73.9 - Peripheral vascular disease, unspecified Assessment and Plan 1) Bradycardia Stopped Metoprolol, heart rates somewhat better 2) HTN Added Norvasc 5mg daily, can be increased to 10mg if needed 3) Await results of previous stress test 4) Echo pending due to SOB with exertion 5) Claudication Plan for follow [facility] Barry Ricardo DO Jan 24, 2017 12:21
[2017-01-24] MEDS ORDERED: amLODIPine BESYLATE 5 MG TAB PO SCH (12:30)
[2017-01-24] MEDS ORDERED: hydrALAZINE HCL 50 MG TAB PO SCH (14:00)
[2017-01-24 17:20] LABS: HEMOGLOBIN A1C 6.2 % (4.3-6.0)
--- NOTE | 2017-01-24 18:37 | ECHRPT ---
Indication: bradycardia CONCLUSIONS Normal left ventricular size. Wall thickness is normal. The left ventricular systolic function is grossly normal on limited imaging. BP: 178 / 80 HR: Rhythm: Sinus MEASUREMENTS (Male / Female) Normal Values Technical Quality:Technically difficult study 2D ECHO LV Diastolic Diameter PLAX 4.3 cm 4.2 - 5.9 / 3.9 - 5.3 cm LV Systolic Diameter PLAX 2.8 cm IVS Diastolic Thickness 1.0 cm 0.6 - 1.0 / 0.6 - 0.9 cm LVPW Diastolic Thickness 1.0 cm 0.6 - 1.0 / 0.6 - 0.9 cm LV Relative Wall Thickness 0.5 LVOT Diameter 2.4 cm Aortic Root Diameter 2.9 cm LA Systolic Diameter LX 3.4 cm 3.0 - 4.0 / 2.7 - 3.8 cm M-MODE AV Cusp Separation MM 1.9 cm DOPPLER AV Peak Velocity 96.5 cm/s AV Peak Gradient 3.7 mmHg AV Mean Gradient 2.0 mmHg AV Velocity Time Integral 18.6 cm LVOT Peak Velocity 78.2 cm/s LVOT Peak Gradient 2.4 mmHg LVOT Velocity Time Integral 17.1 cm AV Area Cont Eq vti 4.2 cm AV Area Cont Eq pk 3.7 cm Mitral E Point Velocity 69.1 cm/s Mitral A Point Velocity 99.2 cm/s Mitral E to A Ratio 0.7 FINDINGS LEFT VENTRICLE Normal left ventricular size. Wall thickness is normal. The left ventricular systolic function is grossly normal on limited imaging. Ivan Arzola MD, FACC, [facility] [place] (Electronically Signed) Final Date:24 January 2017 18:36
--- NOTE | 2017-01-24 18:37 | ECHRPT ---
Indication: bradycardia CONCLUSIONS Normal left ventricular size. Wall thickness is normal. The left ventricular systolic function is grossly normal on limited imaging. BP: 178 / 80 HR: Rhythm: Sinus MEASUREMENTS (Male / Female) Normal Values Technical Quality:Technically difficult study 2D ECHO LV Diastolic Diameter PLAX 4.3 cm 4.2 - 5.9 / 3.9 - 5.3 cm LV Systolic Diameter PLAX 2.8 cm IVS Diastolic Thickness 1.0 cm 0.6 - 1.0 / 0.6 - 0.9 cm LVPW Diastolic Thickness 1.0 cm 0.6 - 1.0 / 0.6 - 0.9 cm LV Relative Wall Thickness 0.5 LVOT Diameter 2.4 cm Aortic Root Diameter 2.9 cm LA Systolic Diameter LX 3.4 cm 3.0 - 4.0 / 2.7 - 3.8 cm M-MODE AV Cusp Separation MM 1.9 cm DOPPLER AV Peak Velocity 96.5 cm/s AV Peak Gradient 3.7 mmHg AV Mean Gradient 2.0 mmHg AV Velocity Time Integral 18.6 cm LVOT Peak Velocity 78.2 cm/s LVOT Peak Gradient 2.4 mmHg LVOT Velocity Time Integral 17.1 cm AV Area Cont Eq vti 4.2 cm AV Area Cont Eq pk 3.7 cm Mitral E Point Velocity 69.1 cm/s Mitral A Point Velocity 99.2 cm/s Mitral E to A Ratio 0.7 FINDINGS LEFT VENTRICLE Normal left ventricular size. Wall thickness is normal. The left ventricular systolic function is grossly normal on limited imaging. Ivan Arzola MD, FACC, [facility] [place] (Electronically Signed) Final Date:24 January 2017 18:36
--- NOTE | 2017-01-24 18:37 | ECHRPT ---
Indication: bradycardia CONCLUSIONS Normal left ventricular size. Wall thickness is normal. The left ventricular systolic function is grossly normal on limited imaging. BP: 178 / 80 HR: Rhythm: Sinus MEASUREMENTS (Male / Female) Normal Values Technical Quality:Technically difficult study 2D ECHO LV Diastolic Diameter PLAX 4.3 cm 4.2 - 5.9 / 3.9 - 5.3 cm LV Systolic Diameter PLAX 2.8 cm IVS Diastolic Thickness 1.0 cm 0.6 - 1.0 / 0.6 - 0.9 cm LVPW Diastolic Thickness 1.0 cm 0.6 - 1.0 / 0.6 - 0.9 cm LV Relative Wall Thickness 0.5 LVOT Diameter 2.4 cm Aortic Root Diameter 2.9 cm LA Systolic Diameter LX 3.4 cm 3.0 - 4.0 / 2.7 - 3.8 cm M-MODE AV Cusp Separation MM 1.9 cm DOPPLER AV Peak Velocity 96.5 cm/s AV Peak Gradient 3.7 mmHg AV Mean Gradient 2.0 mmHg AV Velocity Time Integral 18.6 cm LVOT Peak Velocity 78.2 cm/s LVOT Peak Gradient 2.4 mmHg LVOT Velocity Time Integral 17.1 cm AV Area Cont Eq vti 4.2 cm AV Area Cont Eq pk 3.7 cm Mitral E Point Velocity 69.1 cm/s Mitral A Point Velocity 99.2 cm/s Mitral E to A Ratio 0.7 FINDINGS LEFT VENTRICLE Normal left ventricular size. Wall thickness is normal. The left ventricular systolic function is grossly normal on limited imaging. Ivan Arzola MD, FACC, [facility] [place] [place] (Electronically Signed) Final Date:24 January 2017 18:36
[2017-01-24] MEDS ORDERED: amLODIPine BESYLATE 5 MG TAB PO ONE (18:45)
[2017-01-24] MEDS: PRAMIPEXOLE DIHYDROCHLORIDE 1 MG TAB PO SCH (21:08)
[2017-01-24] MEDS: ATORVASTATIN 10 MG TAB PO SCH (21:08)
[2017-01-24] MEDS: TAMSULOSIN HCL 0.4 MG CAP PO SCH (21:08)
[2017-01-25 03:23] VITALS: BP 167/77; PULSE 63; RESP 17; TEMP 98.5; O2SAT 93
[2017-01-25 07:13] VITALS: BP 150/70; PULSE 55; RESP 20; TEMP 98.1; O2SAT 96
[2017-01-25 08:00] VITALS: PULSE 55
[2017-01-25] MEDS: FLUTICASONE PROPIONATE 50 MCG/ACT 16 GM NASAL SPRAY EACH NARE SCH (10:27)
[2017-01-25] MEDS: SODIUM CHLORIDE 0.9% FLUSH 10 ML FLUSH IV FLUSH SCH (10:27)
[2017-01-25] MEDS: PANTOPRAZOLE SOD 20 MG DELAYED RELEASE TAB PO SCH (10:28)
[2017-01-25] MEDS: SERTRALINE HCL 100 MG TAB PO SCH (10:28)
[2017-01-25] MEDS: buPROPion HCL 150 MG SUSTAINED RELEASE TAB PO SCH (10:28)
[2017-01-25] MEDS: ASPIRIN EC 81 MG TABEC PO SCH (10:29)
[2017-01-25] MEDS: LOSARTAN 50 MG TAB PO SCH (10:29)
[2017-01-25] MEDS: HEPARIN SODIUM - SQ 10,000 UNITS/ML VIAL SQ SCH (10:30)
[2017-01-25 11:47] VITALS: BP 155/72; PULSE 57; RESP 19; TEMP 98.5; O2SAT 96
--- NOTE | 2017-01-25 14:46 | HHI.DS ---
Discharge Summary Admission Date Jan 23, 2017 at 2:14 pm Discharge Date: Jan 25, 2017 Admitting Diagnosis SYMPTOMATIC BRADYCARDIA (1) Symptomatic bradycardia ICD Code: R00.1 - Bradycardia, unspecified Status: Acute Procedures None. Brief History - From Admission 76-year-old male with a history of CAD, diabetes, hypertension, who presents with a one-month history of shortness of breath, fatigue with exertion. He presented to primary care today, was found to have bradycardia with heart rate in the 40s, and was sent to the ER. He does report occasional hot flashes past week. Denies any chest pain. He does report a chronic nonproductive cough which has not changed. Patient did travel by car from [place] one month ago. Both he and are adamant that symptoms of shortness of breath with exertion began before his trip. He does report that bilateral calf pain with exertion began prior to eating [employer]. He is diagnosed with restless leg syndrome and takes pramipexole for this. CBC/BMP: 01/24/17 0925 01/24/17 0925 Significant Findings Laboratory Tests Test 01/23/17 12:15 01/24/17 09:25 Neutrophils (%) (Auto) 75.3 % (16.0-70.0) Monocytes (%) (Auto) 8.7 % (0.0-8.0) 10.5 % (0.0-8.0) Blood Urea Nitrogen 23 MG/DL (7-18) Creatinine 1.32 MG/DL (0.60-1.30) Random Glucose 111 MG/DL (74-106) Sodium Level 135 MEQ/L (136-145) 135 MEQ/L (136-145) Estimat Glomerular Filtration Rate 53 ML/MIN (>89) 71 ML/MIN (>89) Hemoglobin A1c 6.2 % (4.3-6.0) Creatine Kinase MB 5.9 NG/ML (0.5-3.6) Troponin I LESS THAN 0.02 NG/ML Imaging Last Impressions Chest X-Ray 01/23/17 1203 Signed Impressions: Service Date/Time: Monday, January 23, 2017 12:21 - CONCLUSION: The lungs are clear. Brice Call MD Lower Extremity Ultrasound 01/23/17 0000 Signed Impressions: Service Date/Time: Monday, January 23, 2017 15:27 - CONCLUSION: 1. No sonographic evidence for lower extremity DVT. Ronald Estrada MD PE at Discharge GENERAL: Well-nourished, well-developed pleasant elderly male patient in [facility]. SKIN: Warm and dry. No rash. HEENT: Normocephalic. Atraumatic. Pupils equal and round. Mucous membranes pink and moist. NECK: Supple. Trachea midline. Old tracheostomy scar well healed. CARDIOVASCULAR: Bradycardic, regular rhythm. S1, S2 noted. No murmur appreciated. RESPIRATORY: No accessory muscle use. Clear to auscultation. Breath sounds equal bilaterally. GASTROINTESTINAL: Abdomen soft, non-tender, nondistended. Normoactive bowel sounds x4. MUSCULOSKELETAL: No obvious deformities. Extremities without clubbing, cyanosis , or edema. NEUROLOGICAL: Awake and alert. No obvious cranial nerve deficits. Motor grossly within normal limits. Moves all extremities spontaneously. Normal speech. PSYCHIATRIC: Appropriate mood and affect; insight and judgment normal. Pt update on day of discharge Patient is doing well. No chest pain, shortness of breath, fever, chills. Hospital Course 76-year-old male with history of CAD, DM, HTN, presents with SOB and fatigue with exertion. Symptomatic Bradycardia: secondary to beta nicol therapy. HR in 40s upon arrival. -Discontinued patient's metoprolol -consult cardiology Dr. Ricardo, appreciate recommendations -Heart rate improved to upper 50s and 60s. Hypertension: chronic, BP labile -holding patient's metoprolol as above -continue patient's losartan 100mg daily -continue patient's amlodipine 10mg daily NAA: Cr 1.32 on admission. Improved to 1.03. Lower Extremity Claudication: ongoing x2 months -BLE Doppler U/S reviewed, negative for DVT -cardiology recommended outpatient f/up for ABIs and angiogram CAD: chronic, no complaints of chest pain, troponin negative -continue patient' aspirin, statin, ARB -No BB secondary to bradycardia as above Pt Condition on Discharge: Good Discharge Disposition: Discharge Home Discharge Time: > 30 minutes Discharge Instructions DIET: Follow Instructions for: Diabetic Diet Activities you can perform: Regular-No Restrictions Follow up Referrals: Cardiology - 2 Weeks with Barry Ricardo DO PCP Follow-up - 1 Week Continued Medications: Alprazolam (Alprazolam) 0.5 Mg Tab 0.5 MG PO BID PRN for ANXIETY, TAB 0 Refills Amlodipine (Amlodipine) 10 Mg Tab 10 MG PO DAILY for Blood Pressure Management, #30 TAB [address] (Aspirin Adult Low Strength) 81 Mg Tabdr 81 MG PO DAILY for Heart Health, TAB Atorvastatin (Lipitor) 20 Mg Tab 10 MG PO HS for Cholesterol Management, #30 TAB 0 Refills Capsaicin Topical (Capsaicin Topical) 0.1% Cream 1 APPLIC TOPICAL DAILY PRN for PAIN, TUBE Wash hands immediately after use Fluticasone Nasal [place] (Fluticasone Nasal [place]) 50 Mcg/Act Naspr 2 SPRAY EACH NARE DAILY for Allergy Management, #1 BOTTLE 0 Refills 50 mcg/spray Ipratropium Nasal (Ipratropium Nasal) 0.06% [place] 2 SPRAY EACH NARE BID, #1 BOTTLE 0 Refills Lidocaine Patch 12 HR (Lidocaine Patch 12 HR) 5 % Patch 1 PATCH TOPICAL DAILY for Pain Management, #1 BOX 0 Refills Remove patch after 12 hours Losartan (Cozaar) 100 Mg Tab 100 MG PO DAILY for Blood Pressure Management, #30 TAB 0 Refills Omeprazole (Omeprazole) 20 Mg Tab 20 MG PO DAILY for Reflux, #30 TAB 0 Refills Pramipexole (Pramipexole) 1 Mg Tab 1 MG PO HS for Parkinson Disease Mgmt, #30 TAB 0 Refills Sertraline (Zoloft) 100 Mg Tab 150 MG PO DAILY for Mood, #30 TAB 0 Refills Tamsulosin (Flomax) 0.4 Mg Cap 0.8 MG PO HS for Manage Prostate Problems, #60 CAP 0 Refills Discontinued Medications: Bupropion HCl ER 24 HR (Bupropion HCl ER 24 HR) 150 Mg Tab 150 MG PO DAILY for Mood/Smoking Cessation, TAB 0 Refills Metoprolol Tartrate (Lopressor) 100 Mg Tab 100 MG PO Q12HR for Blood Pressure Management, #60 TAB 0 Refills Naproxen (Naprosyn) 500 Mg Tab 500 MG PO BID for Pain/Inflammation, #60 TAB 0 Refills Take with food or milk-Do not take meloxicam while taking this medication Ena Cramer DO Jan 25, 2017 14:46
== END 2017-01-25 15:57 | disposition home or self-care (01) ==
LOC: NEPE 11:40 → NEDA 14:14 → NEPHCDU 15:27
PROVIDERS: ADMIT Hospitalist; ATTEND Hospitalist
DX: R00.1 Bradycardia, unspecified (principal); T46.1X5A Adverse effect of calcium-channel blockers, initial encounter; I10 Essential (primary) hypertension; N17.9 Acute kidney failure, unspecified; R06.02 Shortness of breath; I95.9 Hypotension, unspecified; I73.9 Peripheral vascular disease, unspecified; I25.10 Atherosclerotic heart disease of native coronary artery without angina pectoris; R53.83 Other fatigue; E11.9 Type 2 diabetes mellitus without complications; R05 Cough; M79.662 Pain in left lower leg; M79.661 Pain in right lower leg; G25.81 Restless legs syndrome; Z23 Encounter for immunization
CPT/HCPCS: 71010; 80048; 80053; 82550; 82552; 82948; 83036; 83735; 83880; 84484; 85025; 85610; 85730; 93005; 93306; 93970; 96372; 97161; 99285; G0008; G0378; G8987; G8988; J1644; Q2038; 90471; 90686

== ENCOUNTER 2017-03-29 19:36 | Emergency (ER) | payer MEDICARE, OTHER ==
[~2017-03-29] VITALS: Ht 167.6 cm; Wt 94.5 kg
[~2017-03-29 19:36] MED LIST: ALPR0.5T3 PO; AMLO10TA2 PO; ASPI81TA16 PO; CAPS0.1C2 TOPICAL; COZA100T PO; FLUT50SP EACH NARE; IPRA0.06 EACH NARE; LIDO1PAD52 TOPICAL; LIPI20TA PO; OMEP20TA93 PO; PRAM1TAB PO; TAMS5CAP PO; ZOLO100T PO
[2017-03-29 20:12] VITALS: BP 181/75; PULSE 80; RESP 20; TEMP 98.7; O2SAT 93
--- NOTE | 2017-03-29 20:52 | PD ---
HPI Chief Complaint: Skin Problem Time Seen by Provider: 20:34 Travel History International Travel<30 days: No Contact w/Intl Traveler<30days: No History of Present Illness HPI This is a 77-year-old male who presents to the emergency department with pain in his right elbow that's been going on for 2 days, constant, moderate severity associated with warmth and some redness, worsening. He denies any associated fevers and chills. He had no injury to the elbow. He does have a history of gout although has never affected his elbow. He just restarted taking colchicine 2 days ago. He does not drink alcohol. PFSH Past Medical History Blood Disorders: No Anxiety: Yes Depression: Yes Heart Rhythm Problems: No Cancer: No Cardiovascular Problems: No High Cholesterol: Yes Chest Pain: No Congestive Heart Failure: No Coronary Artery Disease: Yes Diabetes: Yes (type 2 diet controlled) Genitourinary: No Musculoskeletal: Yes Neurologic: No Reproductive: No Respiratory: Yes (SLEEP APNEA) Past Surgical History Body Medical Devices: screws and pin to cervical spine Social History Alcohol Use: No Tobacco Use: No Substance Use: No Allergies-Medications (Allergen,Severity, Reaction): Coded Allergies: No Known Allergies (Unverified Allergy, Unknown, 03/29/17) Reported Meds & Prescriptions Reported Meds & Active Scripts Active Reported Amoxicillin 500 Mg Cap 500 Mg PO TID Flomax (Tamsulosin HCl) 0.4 Mg Cap 0.8 Mg PO HS Cozaar (Losartan Potassium) 100 Mg Tab 100 Mg PO DAILY Lidocaine Patch 12 HR (Lidocaine) 5 % Patch 1 Patch TOPICAL DAILY Remove patch after 12 hours Fluticasone Nasal [place] 50 Mcg/Act Naspr 2 [place] EACH NARE DAILY 50 mcg/spray Lipitor (Atorvastatin Calcium) 20 Mg Tab 10 Mg PO HS Amlodipine (Amlodipine Besylate) 10 Mg Tab 10 Mg PO DAILY Zoloft (Sertraline HCl) 100 Mg Tab 150 Mg PO DAILY Pramipexole (Pramipexole Dihydrochloride) 1 Mg Tab 1 Mg PO HS Omeprazole 20 Mg Tab 20 Mg PO DAILY Ipratropium Nasal 0.06% [place] 2 [place] EACH NARE BID Capsaicin Topical (Capsaicin) 0.1% Cream 1 Applic TOPICAL DAILY PRN Wash hands immediately after use Aspirin Adult Low Strength (Aspirin) 81 Mg Tabdr 81 Mg PO DAILY Alprazolam 0.5 Mg Tab 0.5 Mg PO BID PRN Review of Systems Except as stated in HPI: all other systems reviewed are Neg Physical Exam Narrative GENERAL:Well appearing, no acute distress SKIN: Warm over the right elbow. HEAD: Atraumatic. Normocephalic. EYES: Pupils equal and round. No injection or drainage. ENT: Moist mucous membranes NECK: Trachea midline. CARDIOVASCULAR: Regular rate and rhythm. No murmur appreciated. RESPIRATORY: Clear to auscultation. Breath sounds equal bilaterally. GASTROINTESTINAL: Abdomen soft, non-tender, nondistended. MUSCULOSKELETAL: Tender to palpation over the olecranon bursa with some swelling in this area, no joint effusion, some pain with flexion and extension of the right elbow but patient is able to range his elbow NEUROLOGICAL: Awake and alert. No obvious cranial nerve deficits. Moving all extremities. PSYCHIATRIC: Appropriate mood and affect; insight and judgment normal. Data Data Last Documented VS Vital Signs Date Time Temp Pulse Resp B/P (MAP) Pulse Ox O2 Delivery O2 Flow Rate FiO2 03/29/17 21:24 16 94 03/29/17 20:12 98.7 80 181/75 (110) Orders Orders Complete Blood Count With Diff (03/29/17 20:48) Basic Metabolic Panel (Bmp) (03/29/17 20:48) [place] Sedimentation Rate (03/29/17 20:48) C-Reactive Protein (Crp) (03/29/17 20:48) Elbow, Limited (Ap&Lat) (03/29/17 ) ^ Insert Iv (03/29/17 20:48) Oxycodone (Roxicodone) (03/29/17 21:00) Ed Poc Ultrasound (03/29/17 ) Lidocaine Pf 1% Inj (Xylocaine-Mpf 1% In (03/29/17 23:00) Labs Laboratory Tests Test 03/29/17 21:05 White Blood Count 9.0 TH/MM3 Red Blood Count 4.33 MIL/MM3 Hemoglobin 12.8 GM/DL Hematocrit 37.8 % Mean Corpuscular Volume 87.3 FL Mean Corpuscular Hemoglobin 29.5 PG Mean Corpuscular Hemoglobin Concent 33.8 % Red Cell Distribution Width 12.6 % Platelet Count 251 TH/MM3 Mean Platelet Volume 8.0 FL Neutrophils (%) (Auto) 68.5 % Lymphocytes (%) (Auto) 14.8 % Monocytes (%) (Auto) 11.8 % Eosinophils (%) (Auto) 1.1 % Basophils (%) (Auto) 3.8 % Neutrophils # (Auto) 6.2 TH/MM3 Lymphocytes # (Auto) 1.3 TH/MM3 Monocytes # (Auto) 1.1 TH/MM3 Eosinophils # (Auto) 0.1 TH/MM3 Basophils # (Auto) 0.3 TH/MM3 CBC Comment DIFF FINAL Differential Comment Erythrocyte Sedimentation Rate 28 mm/hr Blood Urea Nitrogen 18 MG/DL Creatinine 1.00 MG/DL Random Glucose 148 MG/DL Calcium Level 8.6 MG/DL Sodium Level 138 MEQ/L Potassium Level 3.6 MEQ/L Chloride Level 105 MEQ/L Carbon Dioxide Level 24.4 MEQ/L Anion Gap 9 MEQ/L Estimat Glomerular Filtration Rate 73 ML/MIN C-Reactive Protein 7.60 MG/DL MDM Medical Decision Making Medical Screen Exam Complete: Yes Emergency Medical Condition: Yes Interpretation(s) Last 24 hours Impressions Elbow X-Ray 03/29/17 0000 Signed Impressions: Service Date/Time: Wednesday, March 29, 2017 21:06 - CONCLUSION: 1. No acute fracture or dislocation. Ronald Estrada MD No leukocytosis Electrolytes are reassuring Sedimentation rate is 28 CRP is 7.6 Differential Diagnosis Olecranon bursitis, septic arthritis, gout, pseudogout Narrative Course This is a 77-year-old male who presents to the emergency department with inflammation and swelling of his right elbow. He appears to have an olecranon bursitis. Labs are obtained which demonstrate mildly elevated inflammatory markers and a normal white blood cell count. X-rays reassuring. Patient has a history of gout. He has preserved range of motion of the right elbow and no obvious effusion so I doubt this is septic arthritis. I did make an attempt at aspirating the bursa but was unable to get any fluid. I think this reflects gout. Patient is also complaining of bronchitis symptoms and has some wheezing on exam pill. He'll be treated with prednisone and he was encouraged to continue using his colchicine. He'll also be discharged with something for pain. Patient was instructed that if he develops fever, chills or increasing swelling he should return to the emergency department immediately. Procedures Procedure Narrative Lateral right elbow was anesthetized with 5 cc of 1% lidocaine. An 18-gauge needle was inserted into the olecranon bursa under ultrasound guidance. I was unable to aspirate any fluid. Patient tolerated the procedure well. Diagnosis Primary Impression: Gout Qualified Codes: M10.021 - Idiopathic gout, right elbow Patient Instructions: General Instructions Additional Instructions: If you develop fever, increasing redness, warmth, or spreading of your infection , or severe pain with movement of your elbow return to the emergency department immediately as you may require antibiotics through your IV. Complete your prednisone and take oxycodone as needed for pain. Med/Other Pt SpecificInfo: Prescription(s) given Scripts Oxycodone (Oxycodone) 5 Mg Cap 5 MG PO Q6H Y for PAIN, #15 CAP 0 Refills Prov: Tania Sanders MD 03/29/17 Prednisone (48) 5 mg tab Dose Pack (Prednisone (48) 5 mg tab Dose Pack) 5 Mg Dspk 5 MG PO DIRECTED for Inflammation, #1 DSPK 0 Refills Prov: Tania Sanders MD 03/29/17 Disposition: 01 DISCHARGE HOME Condition: Stable Tania Sanders MD Mar 29, 2017 20:52
[2017-03-29] MEDS ORDERED: AMOX500C PO (20:54)
[2017-03-29 21:17] LABS: AUTOMATED NEUTROPHIL # 6.2 TH/MM3 (1.8-7.7); BASOPHIL # 0.3 TH/MM3 (0-0.2); BASOPHIL % 3.8 % (0.0-2.0); EOSINOPHIL # 0.1 TH/MM3 (0-0.4); EOSINOPHIL % 1.1 % (0.0-4.0); HEMATOCRIT 37.8 % (39.0-51.0); HEMOGLOBIN 12.8 GM/DL (13.0-17.0); LYMPH % 14.8 % (9.0-44.0); LYMPHOCYTE # 1.3 TH/MM3 (1.0-4.8); MEAN CELL VOLUME 87.3 FL (80.0-100.0); MEAN CORPUSCULAR HEMOGLOBIN 29.5 PG (27.0-34.0); MEAN CORPUSCULAR HGB CONC 33.8 % (32.0-36.0); MONO % 11.8 % (0.0-8.0); MONOCYTE # 1.1 TH/MM3 (0-0.9); NEUT % 68.5 % (16.0-70.0); PLATELET COUNT 251 TH/MM3 (150-450); RED BLOOD COUNT 4.33 MIL/MM3 (4.50-5.90); RED CELL DISTRIBUTION WIDTH 12.6 % (11.6-17.2)
[2017-03-29 21:24] VITALS: RESP 16; O2SAT 94
[2017-03-29 21:28] LABS: CALCIUM 8.6 MG/DL (8.5-10.1)
[2017-03-29 21:29] LABS: BICARBONATE 24.4 MEQ/L (21.0-32.0)
--- NOTE | 2017-03-29 21:53 | RADRPT ---
EXAM DATE/TIME: 03/29/2017 21:06 [facility] COMPARISON: No previous studies available for comparison. INDICATIONS : Patient states severe right elbow pain from unknown injury. MEDICAL HISTORY : None. SURGICAL HISTORY : None. ENCOUNTER: Initial ACUITY: 1 day PAIN SCORE: 5/10 LOCATION: Right elbow. FINDINGS: Two view examination of the right elbow demonstrates no soft tissue swelling, joint effusion, fractur e or dislocation. Bony mineralization is normal. CONCLUSION: 1. No acute fracture or dislocation. Ronald Estrada MD on March 29, 2017 at 21:51 Board Certified Radiologist. This report was verified electronically.
[2017-03-29 22:32] LABS: C-REACTIVE PROTEIN 7.6 MG/DL (0.00-0.30)
[2017-03-29] MEDS ORDERED: LIDOCAINE HCL 1% PF 30 ML VIAL INFIL ONE (23:00)
[2017-03-29] MEDS ORDERED: OXYC1CAP PO (23:16)
[2017-03-29] MEDS ORDERED: PRED5PAK2 PO (23:16)
[2017-03-29] MEDS ORDERED: methylPREDNISolone SOD SUCC 125 MG/2 ML VIAL IV PUSH ONE (23:30)
[2017-03-29] MEDS ORDERED: MORPHINE SULFATE 2 MG/ML INJ IV PUSH ONE (23:30)
[2017-03-29] MEDS ORDERED: ONDANSETRON HCL 4 MG/2 ML VIAL IV PUSH ONE (23:45)
[2017-03-29 23:54] VITALS: BP 171/66; PULSE 74; RESP 18; O2SAT 95
== END 2017-03-30 00:23 | disposition home or self-care (01) ==
LOC: PHED 19:36
DX: M10.00 Idiopathic gout, unspecified site (principal); E78.00 Pure hypercholesterolemia, unspecified; E11.9 Type 2 diabetes mellitus without complications
CPT/HCPCS: 20606; 73070; 80048; 85025; 85652; 86140; 96374; 96375; 99284; J2270; J2405; J2930

== ENCOUNTER 2017-05-28 22:40 | Emergency (ER) | payer OTHER, MEDICARE ==
[~2017-05-28] VITALS: Ht 167.6 cm; Wt 93.9 kg
[~2017-05-28 22:40] MED LIST changes: +AMOX500C PO; +OXYC1CAP PO; +PRED5PAK2 PO
[2017-05-28 22:44] VITALS: BP 211/95; PULSE 82; RESP 20; TEMP 97.7; O2SAT 95
[2017-05-28] MEDS ORDERED: traMADol HCL 50 MG TAB PO ONE (23:15)
[2017-05-28 23:31] LABS: AUTOMATED NEUTROPHIL # 4.2 TH/MM3 (1.8-7.7); BASOPHIL # 0.1 TH/MM3 (0-0.2); BASOPHIL % 0.8 % (0.0-2.0); EOSINOPHIL # 0.1 TH/MM3 (0-0.4); HEMATOCRIT 38.2 % (39.0-51.0); HEMOGLOBIN 12.9 GM/DL (13.0-17.0); LYMPH % 24.8 % (9.0-44.0); LYMPHOCYTE # 1.7 TH/MM3 (1.0-4.8); MEAN CELL VOLUME 87.4 FL (80.0-100.0); MEAN CORPUSCULAR HEMOGLOBIN 29.5 PG (27.0-34.0); MEAN CORPUSCULAR HGB CONC 33.8 % (32.0-36.0); MEAN PLATELET VOLUME 8.5 FL (7.0-11.0); MONO % 11.6 % (0.0-8.0); MONOCYTE # 0.8 TH/MM3 (0-0.9); NEUT % 60.8 % (16.0-70.0); PLATELET COUNT 234 TH/MM3 (150-450); RED BLOOD COUNT 4.37 MIL/MM3 (4.50-5.90); RED CELL DISTRIBUTION WIDTH 13.5 % (11.6-17.2); WHITE BLOOD COUNT 6.9 TH/MM3 (4.0-11.0)
--- NOTE | 2017-05-28 23:32 | RADRPT ---
EXAM DATE/TIME: 05/28/2017 23:15 [facility] COMPARISON: No previous studies available for comparison. INDICATIONS : Pain right foot, 4th toe. Ingrown toenail. MEDICAL HISTORY : None. SURGICAL HISTORY : None. ENCOUNTER: Initial ACUITY: 1 week PAIN SCORE: 4/10 LOCATION: Right foot, 4th toe FINDINGS: Examination of the fourth digit of the right foot demonstrates no evidence of fracture or dislocation . No radiopaque foreign bodies are seen. No erosive bony change. The soft tissues are intact. CONCLUSION: 1. No acute fracture or bony erosion. Ronald Estrada MD on May 28, 2017 at 23:30 Board Certified Radiologist. This report was verified electronically.
--- NOTE | 2017-05-28 23:35 | PD ---
HPI Chief Complaint: Skin Problem Time Seen by Provider: 23:05 Travel History International Travel<30 days: No Contact w/Intl Traveler<30days: No Traveled to known affect area: No History of Present Illness HPI 77-year-old male with history of borderline diabetes, presents to the ER today because of several days history of ingrown toenail on the right third toe, had tried to take out ingrown toenail on his own a few days ago and then since then he has had more pain in the toe and the toe is appearing discolored. He denies any fevers or any other issues. Modifying Factors: None Associated Signs & Symptoms: Ingrown toenail in the right toe, discoloration and more pain Risk Factors: Borderline diabetes PFSH Past Medical History Hx Anticoagulant Therapy: Yes (BABY ASA) Arthritis: Yes Blood Disorders: No Anxiety: Yes Depression: Yes Heart Rhythm Problems: No Cancer: No Cardiovascular Problems: Yes (HTN) High Cholesterol: Yes Chest Pain: Yes Congestive Heart Failure: No Coronary Artery Disease: Yes Diabetes: Yes (DIET CONTROLLED) Patient Takes Glucophage: No GERD: Yes Glaucoma: Yes ("DRY") Gout: Yes Genitourinary: No Headaches: Yes Herniated Disk: Yes (C-SPINE (PLATE, 18 SCREWS, 2 BARS)) Hypertension: Yes Musculoskeletal: Yes Neurologic: No Reproductive: No Respiratory: Yes (SLEEP APNEA, TRACHEOTOMY: 2013) Pneumonia: Yes Sleep Apnea: Yes (WEARS CPAP) Tetanus Vaccination: > 5 Years Influenza Vaccination: Yes Past Surgical History Body Medical Devices: screws and pin to cervical spine Eye Surgery: Yes (BILATERAL CATARACT) Oral Surgery: Yes (EXTRACTIONS) Tonsillectomy: Yes Other Surgery: Yes (Tyrel. hernia repair, carpel tunnel, cervical spine surgery) Social History Alcohol Use: No (QUIT 1988) Tobacco Use: No (QUIT 1998) Substance Use: No Allergies-Medications (Allergen,Severity, Reaction): Coded Allergies: amitriptyline (Verified Allergy, Unknown, B/P PROB, 05/28/17) Reported Meds & Prescriptions Reported Meds & Active Scripts Active Oxycodone (Oxycodone HCl) 5 Mg Cap 5 Mg PO Q6H PRN Reported Flomax (Tamsulosin HCl) 0.4 Mg Cap 0.8 Mg PO HS Cozaar (Losartan Potassium) 100 Mg Tab 100 Mg PO DAILY Lidocaine Patch 12 HR (Lidocaine) 5 % Patch 1 Patch TOPICAL DAILY Remove patch after 12 hours Fluticasone Nasal [place] 50 Mcg/Act Naspr 2 [place] EACH NARE DAILY 50 mcg/spray Lipitor (Atorvastatin Calcium) 20 Mg Tab 10 Mg PO HS Amlodipine (Amlodipine Besylate) 10 Mg Tab 10 Mg PO DAILY Zoloft (Sertraline HCl) 100 Mg Tab 150 Mg PO DAILY Pramipexole (Pramipexole Dihydrochloride) 1 Mg Tab 1 Mg PO HS Omeprazole 20 Mg Tab 20 Mg PO DAILY Ipratropium Nasal 0.06% [place] 2 [place] EACH NARE BID Capsaicin Topical (Capsaicin) 0.1% Cream 1 Applic TOPICAL DAILY PRN Wash hands immediately after use Aspirin Adult Low Strength (Aspirin) 81 Mg Tabdr 81 Mg PO DAILY Alprazolam 0.5 Mg Tab 0.5 Mg PO BID PRN Review of Systems Except as stated in HPI: all other systems reviewed are Neg Physical Exam Narrative GENERAL: Well-developed elderly male patient currently in mild distress. Awake and oriented 3. SKIN: Focused skin assessment warm/dry. HEAD: Atraumatic. Normocephalic. EYES: Pupils equal and round. No scleral icterus. No injection or drainage. ENT: No nasal bleeding or discharge. Mucous membranes pink and moist. NECK: Trachea midline. No JVD. CARDIOVASCULAR: Regular rate and rhythm. No murmur appreciated. RESPIRATORY: No accessory muscle use. Clear to auscultation. Breath sounds equal bilaterally. GASTROINTESTINAL: Abdomen soft, non-tender, nondistended. Hepatic and splenic margins not palpable. MUSCULOSKELETAL: No obvious deformities. No clubbing. No cyanosis. No edema. The right fourth toe is discolored, purplish, tender to palpation. Notable for nail deformity in the third toe. NEUROLOGICAL: Awake and alert. No obvious cranial nerve deficits. Motor grossly within normal limits. Normal speech. PSYCHIATRIC: Appropriate mood and affect; insight and judgment normal. Data Data Last Documented VS Vital Signs Date Time Temp Pulse Resp B/P (MAP) Pulse Ox O2 Delivery O2 Flow Rate FiO2 05/29/17 00:00 185/77 (113) 05/28/17 22:44 97.7 82 20 95 Orders Orders Sepsis Workup Initiated (05/28/17 ) Complete Blood Count With Diff (05/28/17 23:05) Comprehensive Metabolic Panel (05/28/17 23:05) Lactic Acid Sepsis Protocol (05/28/17 23:05) Blood Culture (05/28/17 23:05) Blood Glucose (05/28/17 23:05) Ecg Monitoring (05/28/17 23:05) Iv Access Insert/Monitor (05/28/17 23:05) Oximetry (05/28/17 23:05) Oxygen Administration (05/28/17 23:05) Toe (Min 2vws) (05/28/17 23:05) Tramadol (Ultram) (05/28/17 23:15) Bupivacaine Pf 0.5% Inj (Marcaine Pf 0.5 (05/29/17 00:00) Labs Laboratory Tests Test 05/28/17 23:15 05/28/17 23:20 Lactic Acid Level 0.9 mmol/L White Blood Count 6.9 TH/MM3 Red Blood Count 4.37 MIL/MM3 Hemoglobin 12.9 GM/DL Hematocrit 38.2 % Mean Corpuscular Volume 87.4 FL Mean Corpuscular Hemoglobin 29.5 PG Mean Corpuscular Hemoglobin Concent 33.8 % Red Cell Distribution Width 13.5 % Platelet Count 234 TH/MM3 Mean Platelet Volume 8.5 FL Neutrophils (%) (Auto) 60.8 % Lymphocytes (%) (Auto) 24.8 % Monocytes (%) (Auto) 11.6 % Eosinophils (%) (Auto) 2.0 % Basophils (%) (Auto) 0.8 % Neutrophils # (Auto) 4.2 TH/MM3 Lymphocytes # (Auto) 1.7 TH/MM3 Monocytes # (Auto) 0.8 TH/MM3 Eosinophils # (Auto) 0.1 TH/MM3 Basophils # (Auto) 0.1 TH/MM3 CBC Comment DIFF FINAL Differential Comment Blood Urea Nitrogen 23 MG/DL Creatinine 1.10 MG/DL Random Glucose 94 MG/DL Total Protein 6.9 GM/DL Albumin 3.5 GM/DL Calcium Level 8.4 MG/DL Alkaline Phosphatase 79 U/L Aspartate Amino Transf (AST/SGOT) 32 U/L Alanine Aminotransferase (ALT/SGPT) 30 U/L Total Bilirubin 0.2 MG/DL Sodium Level 142 MEQ/L Potassium Level 4.0 MEQ/L Chloride Level 107 MEQ/L Carbon Dioxide Level 28.4 MEQ/L Anion Gap 7 MEQ/L Estimat Glomerular Filtration Rate 65 ML/MIN MDM Medical Decision Making Medical Screen Exam Complete: Yes Emergency Medical Condition: Yes Medical Record Reviewed: Yes Interpretation(s) Laboratory Tests Test 05/28/17 23:15 05/28/17 23:20 Red Blood Count 4.37 MIL/MM3 (4.50-5.90) Hemoglobin 12.9 GM/DL (13.0-17.0) Hematocrit 38.2 % (39.0-51.0) Monocytes (%) (Auto) 11.6 % (0.0-8.0) Blood Urea Nitrogen 23 MG/DL (7-18) Calcium Level 8.4 MG/DL (8.5-10.1) Estimat Glomerular Filtration Rate 65 ML/MIN (>89) Differential Diagnosis Ingrown toenail/toe discoloration: Cellulitis versus osteomyelitis versus ingrown toenail versus paronychia Narrative Course X-rays did not show any underlying fractures or any signs of osteomyelitis. Lab work was fairly unremarkable. On exam, he appears to have had an ingrown toenail and he had cut his own ingrown toenail and there is some underlying cellulitis and ecchymosis of the toe. He is fairly tender on palpation. I have explored the area after digital block for the patient and it appears that the ingrown toenail has gone. I suspect that he has an underlying cellulitis causing the discomfort. My plan would be to place him on p.o. antibiotics and have him follow-up closely with podiatry. Return for any worsening in pain, or new symptoms as needed. The plan has been discussed with him he states understanding. Procedures Procedure Narrative Digital block was placed with 2 cc of Marcaine and on the fourth digit. The area was cleaned with iodine. The nail was explored and it appears that he had done a wedge resection on that ingrown toenail and there is no signs of ingrown toenail there now. At this point, the area was cleaned and covered with Band- Aid. Patient tolerated procedure well. Diagnosis Primary Impression: Ingrown toenail Additional Impression: Cellulitis Med/Other Pt SpecificInfo: Prescription(s) given Scripts Tramadol (Tramadol) 50 Mg Tab 50 MG PO Q6H Y for PAIN, #15 TAB 0 Refills Prov: Nicole Mejia MD 05/29/17 Sulfamethoxazole-Trimethoprim (Bactrim DS) 800-160 Mg Tab 1 TAB PO BID for Infection, #14 TAB 0 Refills Prov: Nicole Mejia MD 05/29/17 Disposition: 01 DISCHARGE HOME Condition: Stable Nicole Mejia MD May 28, 2017 23:35
[2017-05-28 23:37] LABS: CHLORIDE 107 MEQ/L (98-107); SODIUM (NA) 142 MEQ/L (136-145)
[2017-05-28 23:40] LABS: CALCIUM 8.4 MG/DL (8.5-10.1)
[2017-05-28 23:41] LABS: ALBUMIN 3.5 GM/DL (3.4-5.0); BICARBONATE 28.4 MEQ/L (21.0-32.0); BLOOD UREA NITROGEN 23 MG/DL (7-18); GLUCOSE,RANDOM 94 MG/DL (74-106)
[2017-05-28 23:44] LABS: ALT (GPT) 30 U/L (12-78); AST (GOT) 32 U/L (15-37); GLOMERULAR FILTRATION RATE 65 ML/MIN (>89)
[2017-05-28 23:46] LABS: TOTAL BILIRUBIN ADULT 0.2 MG/DL (0.2-1.0); TOTAL PROTEIN 6.9 GM/DL (6.4-8.2)
[2017-05-28 23:47] LABS: ALKALINE PHOSPHATASE 79 U/L (45-117)
[2017-05-29] VITALS: BP 185/77
[2017-05-29] MEDS ORDERED: BUPIVACAINE HCL PF 0.5% 10 ML VIAL INFIL ONE
[2017-05-29] MEDS ORDERED: TRAM50TA PO (00:39)
[2017-05-29] MEDS ORDERED: BACT800T5 PO (00:39)
== END 2017-05-29 00:50 | disposition home or self-care (01) ==
LOC: PHED 22:40
DX: L60.0 Ingrowing nail (principal); L03.031 Cellulitis of right toe; I10 Essential (primary) hypertension; E11.9 Type 2 diabetes mellitus without complications; Z79.01 Long term (current) use of anticoagulants
CPT/HCPCS: 64450; 73660; 80053; 83605; 85025; 87040

== ENCOUNTER 2017-06-01 12:46 | Inpatient (IN) | payer MEDICARE, OTHER ==
[~2017-06-01] VITALS: Ht 165.1 cm; Wt 102.0 kg
[~2017-06-01 12:46] MED LIST changes: -AMOX500C PO; +BACT800T5 PO; -PRED5PAK2 PO; +TRAM50TA PO; +VANCOMYCIN 1,000 MG/NS 250 ML IV SCH
[2017-06-01 13:22] VITALS: BP 180/108; PULSE 87; RESP 20; TEMP 98.2; O2SAT 97
--- NOTE | 2017-06-01 14:17 | PD ---
HPI Chief Complaint: Skin Problem Time Seen by Provider: 14:15 Travel History International Travel<30 days: No Contact w/Intl Traveler<30days: No Traveled to known affect area: No History of Present Illness HPI 77-year-old male came to the emergency room with history of right fourth toe infection and pain for past 1 week. Patient says that he went to the [place] emergency room where he was given antibiotic and pain medication. However that has not made the infection better or the pain. He noticed some red streaking on the top of his foot and decided to come here. No history of fever or chills. Patient says he is a diabetic but manages with diet. His sugar this morning was 107. Vital signs were otherwise stable. Patient says this started as an ingrown toenail as per him. His is here with him. He also noticed a bluish discoloration of his toe. [facility] Past Medical History Narrative Medical List of his past medical, surgical, social and family history is reviewed from the nursing note. Hx Anticoagulant Therapy: Yes (BABY ASA) Arthritis: Yes Blood Disorders: No Anxiety: Yes Depression: Yes Heart Rhythm Problems: No Cancer: No Cardiovascular Problems: Yes (HTN) High Cholesterol: Yes Chest Pain: Yes Congestive Heart Failure: No Coronary Artery Disease: Yes Diabetes: Yes (DIET CONTROLLED) GERD: Yes Glaucoma: Yes ("DRY") Gout: Yes Genitourinary: No Headaches: Yes Herniated Disk: Yes (C-SPINE (PLATE, 18 SCREWS, 2 BARS)) Hypertension: Yes Musculoskeletal: Yes Neurologic: No Reproductive: No Respiratory: Yes (SLEEP APNEA, TRACHEOTOMY: 2013) Pneumonia: Yes Sleep Apnea: Yes (WEARS CPAP) Past Surgical History Body Medical Devices: screws and pin to cervical spine Eye Surgery: Yes (BILATERAL CATARACT) Oral Surgery: Yes (EXTRACTIONS) Tonsillectomy: Yes Other Surgery: Yes (Tyrel. hernia repair, carpel tunnel, cervical spine surgery) Social History Alcohol Use: No (QUIT 1988) Tobacco Use: No (QUIT 1998) Substance Use: No Allergies-Medications (Allergen,Severity, Reaction): Coded Allergies: hydrocodone (Verified Allergy, Mild, 06/02/17) Patient started having redness around the mouth, chills, and slight swelling of the tongue. amitriptyline (Verified Allergy, Unknown, B/P PROB, 06/01/17) ciprofloxacin (Verified Allergy, Unknown, 06/01/17) dexamethasone (Verified Allergy, Unknown, 06/01/17) fosinopril (Verified Allergy, Unknown, 06/01/17) gabapentin (Verified Allergy, Unknown, 06/01/17) sulindac (Verified Allergy, Unknown, 06/01/17) Comments List of his allergies reviewed from the nursing note. Reported Meds & Prescriptions Reported Meds & Active Scripts Active Tramadol (Tramadol HCl) 50 Mg Tab 50 Mg PO Q6H PRN Bactrim DS (Sulfamethoxazole-Trimethoprim) 800-160 Mg Tab 1 Tab PO BID Oxycodone (Oxycodone HCl) 5 Mg Cap 5 Mg PO Q6H PRN Reported Flomax (Tamsulosin HCl) 0.4 Mg Cap 0.8 Mg PO HS Cozaar (Losartan Potassium) 100 Mg Tab 100 Mg PO DAILY Lidocaine Patch 12 HR (Lidocaine) 5 % Patch 1 Patch TOPICAL DAILY Remove patch after 12 hours Fluticasone Nasal [place] 50 Mcg/Act Naspr 2 [place] EACH NARE DAILY 50 mcg/spray Lipitor (Atorvastatin Calcium) 20 Mg Tab 10 Mg PO HS Amlodipine (Amlodipine Besylate) 10 Mg Tab 10 Mg PO DAILY Zoloft (Sertraline HCl) 100 Mg Tab 150 Mg PO DAILY Pramipexole (Pramipexole Dihydrochloride) 1 Mg Tab 1 Mg PO HS Omeprazole 20 Mg Tab 20 Mg PO DAILY Ipratropium Nasal 0.06% [place] 2 [place] EACH NARE BID Capsaicin Topical (Capsaicin) 0.1% Cream 1 Applic TOPICAL DAILY PRN Wash hands immediately after use Aspirin Adult Low Strength (Aspirin) 81 Mg Tabdr 81 Mg PO DAILY Alprazolam 0.5 Mg Tab 0.5 Mg PO BID PRN Narrative Medication List of his home medications reviewed from the nursing note. Review of Systems Except as stated in HPI: all other systems reviewed are Neg Musculoskeletal: Positive: Pain Physical Exam Narrative GENERAL: Awake, alert, moderate distress SKIN: Focused skin assessment warm/dry. Right fourth toe is purple in color with a line of demarcation at the base of the toe. It's tender to touch. The toenail looks in poor condition. No obvious site of infection is noticed except for the toenail. There is a red streaking on the dorsum of the foot along the medial aspect of the foot. DP is not palpable but dopplerable. HEAD: Atraumatic. Normocephalic. EYES: Pupils equal and round. No scleral icterus. No injection or drainage. ENT: No nasal bleeding or discharge. Mucous membranes pink and moist. NECK: Trachea midline. No JVD. CARDIOVASCULAR: Regular rate and rhythm. No murmur appreciated. RESPIRATORY: No accessory muscle use. Clear to auscultation. Breath sounds equal bilaterally. GASTROINTESTINAL: Abdomen soft, non-tender, nondistended. Hepatic and splenic margins not palpable. MUSCULOSKELETAL: No obvious deformities. No clubbing. No cyanosis. No edema. NEUROLOGICAL: Awake and alert. No obvious cranial nerve deficits. Motor grossly within normal limits. Normal speech. PSYCHIATRIC: Appropriate mood and affect; insight and judgment normal. Data Data Last Documented VS Vital Signs Date Time Temp Pulse Resp B/P (MAP) Pulse Ox O2 Delivery O2 Flow Rate FiO2 06/01/17 14:18 88 18 06/01/17 13:22 98.2 180/108 (132) 97 Orders Orders Basic Metabolic Panel (Bmp) (06/01/17 14:29) Complete Blood Count With Diff (06/01/17 14:29) Vancomycin Inj (Vancomycin Inj) (06/01/17 14:30) Westergren Sedimentation Rate (06/01/17 14:29) C-Reactive Protein (Crp) (06/01/17 14:29) Blood Culture (06/01/17 14:29) Cta Runoff W Iv Contrast W 3d (06/01/17 ) Morphine Inj (Morphine Inj) (06/01/17 14:45) Iohexol 350 Inj (Omnipaque 350 Inj) (06/01/17 16:01) Admit Order (Ed Use Only) (06/01/17 16:36) Labs Laboratory Tests Test 06/01/17 14:35 White Blood Count 8.6 TH/MM3 Red Blood Count 4.85 MIL/MM3 Hemoglobin 14.3 GM/DL Hematocrit 42.5 % Mean Corpuscular Volume 87.5 FL Mean Corpuscular Hemoglobin 29.5 PG Mean Corpuscular Hemoglobin Concent 33.7 % Red Cell Distribution Width 13.8 % Platelet Count 264 TH/MM3 Mean Platelet Volume 8.1 FL Neutrophils (%) (Auto) 64.4 % Lymphocytes (%) (Auto) 20.8 % Monocytes (%) (Auto) 12.7 % Eosinophils (%) (Auto) 1.4 % Basophils (%) (Auto) 0.7 % Neutrophils # (Auto) 5.5 TH/MM3 Lymphocytes # (Auto) 1.8 TH/MM3 Monocytes # (Auto) 1.1 TH/MM3 Eosinophils # (Auto) 0.1 TH/MM3 Basophils # (Auto) 0.1 TH/MM3 CBC Comment DIFF FINAL Differential Comment Blood Urea Nitrogen 16 MG/DL Creatinine 1.20 MG/DL Random Glucose 98 MG/DL Calcium Level 9.3 MG/DL Sodium Level 135 MEQ/L Potassium Level 3.7 MEQ/L Chloride Level 100 MEQ/L Carbon Dioxide Level 27.5 MEQ/L Anion Gap 8 MEQ/L Estimat Glomerular Filtration Rate 59 ML/MIN C-Reactive Protein 3.18 MG/DL MDM Medical Decision Making Medical Screen Exam Complete: Yes Emergency Medical Condition: Yes Medical Record Reviewed: Yes Differential Diagnosis Arterial occlusion to the toe, cellulitis, outpatient treatment failure Narrative Course 4:20 PM patient was given IV vancomycin. Blood test results of back and CRP is elevated. Awaiting for the CT angiogram of the leg to be done and resulted. Patient will require admission for outpatient treatment failure. 4:30 PM I tried to speak with Dr. Loaiza who was on for vascular but he was scrubbed in for case in the OR. I have left the message with the circulating nurse will pass the message on to him and he will be consulted. Procedures EKG Prior to Arrival: No Diagnosis Primary Impression: Cellulitis Qualified Codes: L03.031 - Cellulitis of right toe Additional Impression: Failure of outpatient treatment Admitting Information Admitting Physician Requests: Prince Domingo MD Jun 01, 2017 14:17
[2017-06-01] MEDS ORDERED: VANCOMYCIN INJ 1,000 MG in SODIUM CHLOR 0.9% 250 ML INJ 250 ML IV ONE (14:30)
[2017-06-01] MEDS ORDERED: MORPHINE SULFATE 8 MG/ML INJ IV PUSH ONE (14:45)
[2017-06-01 14:48] LABS: AUTOMATED NEUTROPHIL # 5.5 TH/MM3 (1.8-7.7); BASOPHIL # 0.1 TH/MM3 (0-0.2); BASOPHIL % 0.7 % (0.0-2.0); EOSINOPHIL # 0.1 TH/MM3 (0-0.4); EOSINOPHIL % 1.4 % (0.0-4.0); HEMATOCRIT 42.5 % (39.0-51.0); HEMOGLOBIN 14.3 GM/DL (13.0-17.0); LYMPH % 20.8 % (9.0-44.0); LYMPHOCYTE # 1.8 TH/MM3 (1.0-4.8); MEAN CELL VOLUME 87.5 FL (80.0-100.0); MEAN CORPUSCULAR HEMOGLOBIN 29.5 PG (27.0-34.0); MEAN CORPUSCULAR HGB CONC 33.7 % (32.0-36.0); MEAN PLATELET VOLUME 8.1 FL (7.0-11.0); MONO % 12.7 % (0.0-8.0); MONOCYTE # 1.1 TH/MM3 (0-0.9); NEUT % 64.4 % (16.0-70.0); PLATELET COUNT 264 TH/MM3 (150-450); RED BLOOD COUNT 4.85 MIL/MM3 (4.50-5.90); RED CELL DISTRIBUTION WIDTH 13.8 % (11.6-17.2); WHITE BLOOD COUNT 8.6 TH/MM3 (4.0-11.0)
[2017-06-01 15:12] LABS: BICARBONATE 27.5 MEQ/L (21.0-32.0); C-REACTIVE PROTEIN 3.18 MG/DL (0.00-0.30); CALCIUM 9.3 MG/DL (8.5-10.1); CREATININE 1.2 MG/DL (0.60-1.30)
[2017-06-01] MEDS ORDERED: IOHEXOL 350 MG/ML 10 ML VIAL (for RAD DIAG) IVCONTRAST ONE (16:01)
[2017-06-01] MEDS ORDERED: ACETAMINOPHEN/HYDROcodone 325 MG/7.5 MG TAB PO PRN (17:00)
[2017-06-01] MEDS ORDERED: NALOXONE HCL 0.4 MG/ML AMP IV PUSH PRN (17:00)
[2017-06-01] MEDS ORDERED: BISACODYL 10 MG SUPP RECTAL PRN (17:00)
[2017-06-01] MEDS ORDERED: LACTULOSE SYRUP 20 GM/30 ML CUP PO PRN (17:00)
[2017-06-01] MEDS ORDERED: Vancomycin Consult Pharmacy 1 EA OTHER SCH (17:00)
[2017-06-01] MEDS ORDERED: MAGNESIUM HYDROXIDE SUSP 30 ML CUP PO PRN (17:00)
[2017-06-01] MEDS ORDERED: ACETAMINOPHEN 325 MG TAB PO PRN ×2 (17:00)
[2017-06-01] MEDS ORDERED: SODIUM CHLORIDE 0.9% FLUSH 10 ML FLUSH IV FLUSH PRN (17:00)
[2017-06-01] MEDS ORDERED: ACETAMINOPHEN/HYDROcodone 325 MG/5 MG TAB PO PRN (17:00)
[2017-06-01] MEDS ORDERED: SENNOSIDES 8.6 MG TAB PO PRN (17:00)
[2017-06-01 17:06] VITALS: BP 189/81; PULSE 82; RESP 16; O2SAT 95
--- NOTE | 2017-06-01 17:59 | RADRPT ---
EXAM DATE/TIME: 06/01/2017 15:53 [place] COMPARISON: No previous studies available for comparison. INDICATIONS : Fourth right toe discoloration. IV CONTRAST: 100 cc Omnipaque 350 (iohexol) IV RADIATION DOSE: 12.05 CTDIvol (mGy) MEDICAL HISTORY : Hypertension. Cardiovascular disease SURGICAL HISTORY : Bilateral hernia repair ENCOUNTER: Initial ACUITY: 1 week PAIN SCALE: 4/10 LOCATION: Right toe TECHNIQUE: Volumetric scanning was performed using a multi-row detector CT scanner. The data was post processed with a variety of visualization algorithms including full volume maximum intensity projection, multi -planar sliding thin slab reformation, curved planar reformation, and surface rendering techniques. Using automated exposure control and adjustment of the mA and/or kV according to patient size, radiat ion dose was kept as low as reasonably achievable to obtain optimal diagnostic quality images. DICO M format image data is available electronically for review and comparison. FINDINGS: The abdominal aorta is widely patent with moderate atheromatous irregularity and dense and full calci fication. The aortic visceral vessels are patent. There is mild median arcuate ligament compression o f the celiac artery origin. There is moderate eccentric calcific stenosis at the origin of the SMA. T he renal arteries appear satisfactory with 2 renal arteries present on both sides. The REMIGIO is patent. In the pelvis, there is moderate eccentric calcific stenosis involving the proximal right common ailyn c artery. No significant inflow stenosis on the left. Viable gastrics are patent bilaterally. Mild po sterior plaquing in the common femorals bilaterally, worse on the right than the left. The profundas are patent bilaterally. In the right leg, there is severe diffuse SFA disease with areas of near occlusion proximally and dis tally. The above-knee popliteal abruptly occludes over a short length and then reconstitutes above th e joint level. The below-knee right popliteal is relatively healthy in appearance and leads to satisf actory 3 vessel right calf runoff. On the contralateral left side, there is diffuse mild SFA disease and tandem areas of moderately high grade stenosis in the adductor hiatus. The left popliteal artery is relatively healthy in appearance and leads to satisfactory 3 vessel left calf runoff. 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 The poplite al artery below this reconstitutes and appears to be a satisfactory target vessel with intact three-v essel calf runoff thereafter noted. 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 Leo Maher MD on June 01, 2017 at 17:49 Board Certified Radiologist. This report was verified electronically.
[2017-06-01] MEDS ORDERED: VANCOMYCIN 1,000 MG/NS 250 ML IV ONE ×2 (18:00)
[2017-06-01] MEDS: PIPERACIL-TAZO 3.375 GM PREMIX 50 ML IV SCH ×2 (18:29→23:16)
[2017-06-01] MEDS: HEPARIN SODIUM - SQ 10,000 UNITS/ML VIAL SQ SCH (18:30)
--- NOTE | 2017-06-01 19:28 | HHI.HP ---
HPI Service [facility] Primary Care Physician [facility] Admission Diagnosis toe cellulitis, outpatient treatment failure Diagnoses: Chief Complaint: Right toe infection Travel History International Travel<30 Days: No Contact w/Intl Traveler <30 Da: No Traveled to Known Affected Are: No History of Present Illness 77-year-old male with a medical history significant for hypertension, diet- controlled diabetes, history of PE presents to the emergency room with complaint of worsening right fourth toe infection. Patient reports his symptoms started about a week ago after he tried to cut an ingrown toenail. He was seen in the emergency room at [place] and was given antibiotics and pain medications. Over the past couple of days he noticed his symptoms are getting worse. He notes the toe has been intermittently black or purple. He denies any fevers or chills. He has had surrounding redness with streaking over the dorsal aspect of his foot. He reports significant pain on the right fourth toe. Review of Systems Constitutional: DENIES: Fever, Chills Musculoskeletal: COMPLAINS OF: Joint pain, Joint Swelling Integumentary: COMPLAINS OF: Nail changes, Rash Except as stated in HPI: all other systems reviewed are Neg Past Family Social History Past Medical History CAD. Catheterization 2000. Hypertension BPH Gout Restless leg syndrome Diabetes Provoked pulmonary embolism following back surgery years ago. Past Surgical History Transurethral prostatectomy Foot surgery Right cataract surgery Septorhinoplasty Inguinal hernia repair Carpal tunnel repair L4-5 microdiscectomy Heart catheterization with angioplasty 2000 Tonsillectomy and adenoidectomy Shoulder surgery Reported Medications Reported Meds & Active Scripts Active Tramadol (Tramadol HCl) 50 Mg Tab 50 Mg PO Q6H PRN Bactrim DS (Sulfamethoxazole-Trimethoprim) 800-160 Mg Tab 1 Tab PO BID Oxycodone (Oxycodone HCl) 5 Mg Cap 5 Mg PO Q6H PRN Reported Flomax (Tamsulosin HCl) 0.4 Mg Cap 0.8 Mg PO HS Cozaar (Losartan Potassium) 100 Mg Tab 100 Mg PO DAILY Lidocaine Patch 12 HR (Lidocaine) 5 % Patch 1 Patch TOPICAL DAILY Remove patch after 12 hours Fluticasone Nasal [place] 50 Mcg/Act Naspr 2 [place] EACH NARE DAILY 50 mcg/spray Lipitor (Atorvastatin Calcium) 20 Mg Tab 10 Mg PO HS Amlodipine (Amlodipine Besylate) 10 Mg Tab 10 Mg PO DAILY Zoloft (Sertraline HCl) 100 Mg Tab 150 Mg PO DAILY Pramipexole (Pramipexole Dihydrochloride) 1 Mg Tab 1 Mg PO HS Omeprazole 20 Mg Tab 20 Mg PO DAILY Ipratropium Nasal 0.06% [place] 2 [place] EACH NARE BID Capsaicin Topical (Capsaicin) 0.1% Cream 1 Applic TOPICAL DAILY PRN Wash hands immediately after use Aspirin Adult Low Strength (Aspirin) 81 Mg Tabdr 81 Mg PO DAILY Alprazolam 0.5 Mg Tab 0.5 Mg PO BID PRN Allergies: Coded Allergies: amitriptyline (Verified Allergy, Unknown, B/P PROB, 06/01/17) ciprofloxacin (Verified Allergy, Unknown, 06/01/17) dexamethasone (Verified Allergy, Unknown, 06/01/17) fosinopril (Verified Allergy, Unknown, 06/01/17) gabapentin (Verified Allergy, Unknown, 06/01/17) sulindac (Verified Allergy, Unknown, 06/01/17) Family History Father in from a heart attack Mother in . She had a history of diabetes. Social History Previous smoker. Quit 2000. Nondrinker. Physical Exam Vital Signs Vital Signs Date Time Temp Pulse Resp B/P (MAP) Pulse Ox O2 Delivery O2 Flow Rate FiO2 06/01/17 18:46 06/01/17 17:06 82 16 189/81 (117) 95 Room Air 06/01/17 14:18 88 18 06/01/17 13:22 98.2 87 20 180/108 (132) 97 Physical Exam GENERAL: This is a well-nourished, well-developed patient, in no apparent distress. SKIN: Right fourth toe is cyanotic. There is surrounding cellulitis with streaking upward toward the ankle. HEAD: Atraumatic. Normocephalic. No temporal or scalp tenderness. EYES: Pupils equal round and reactive. Extraocular motions intact. No scleral icterus. No injection or drainage. ENT: Nose without bleeding, purulent drainage or septal hematoma. Throat without erythema, tonsillar hypertrophy or exudate. Uvula midline. Airway patent. NECK: Trachea midline. No JVD or lymphadenopathy. Supple, nontender, no meningeal signs. CARDIOVASCULAR: Regular rate and rhythm without murmurs, gallops, or rubs. Unable to palpate dorsalis pedis pulse on the right. RESPIRATORY: Clear to auscultation. Breath sounds equal bilaterally. No wheezes , rales, or rhonchi. GASTROINTESTINAL: Abdomen soft, non-tender, nondistended. No hepato-splenomegaly , or palpable masses. No guarding. MUSCULOSKELETAL: Right fourth toe cyanosis as above. No lower extremity edema. NEUROLOGICAL: Awake and alert. Cranial nerves II through XII intact. Motor and sensory grossly within normal limits. Five out of 5 muscle strength in all muscle groups. Normal speech. Laboratory Laboratory Tests Test 06/01/17 14:35 White Blood Count 8.6 Red Blood Count 4.85 Hemoglobin 14.3 Hematocrit 42.5 Mean Corpuscular Volume 87.5 Mean Corpuscular Hemoglobin 29.5 Mean Corpuscular Hemoglobin Concent 33.7 Red Cell Distribution Width 13.8 Platelet Count 264 Mean Platelet Volume 8.1 Neutrophils (%) (Auto) 64.4 Lymphocytes (%) (Auto) 20.8 Monocytes (%) (Auto) 12.7 Eosinophils (%) (Auto) 1.4 Basophils (%) (Auto) 0.7 Neutrophils # (Auto) 5.5 Lymphocytes # (Auto) 1.8 Monocytes # (Auto) 1.1 Eosinophils # (Auto) 0.1 Basophils # (Auto) 0.1 CBC Comment DIFF FINAL Differential Comment Blood Urea Nitrogen 16 Creatinine 1.20 Random Glucose 98 Calcium Level 9.3 Sodium Level 135 Potassium Level 3.7 Chloride Level 100 Carbon Dioxide Level 27.5 Anion Gap 8 Estimat Glomerular Filtration Rate 59 C-Reactive Protein 3.18 Date/Time Source Procedure Growth Status 06/01/17 14:35 Blood Peripheral Aerobic Blood Culture Pending Received 06/01/17 14:35 Blood Peripheral Anaerobic Blood Culture Pending Received Result Diagram: 06/01/17 1435 06/01/17 1435 Imaging Last Impressions Aorta w/Runoff CTA 06/01/17 0000 Signed Impressions: Service Date/Time: June 15:53 - CONCLUSION: Moderate eccentric stenosis in the right common iliac artery Severe diffuse right leg SFA disease and 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 The popliteal artery below this reconstitutes and appears to be a satisfactory target vessel with intact three-vessel calf runoff thereafter noted. 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 MD Toyin Ohara VTE Risk Assessment Caprini VTE Risk Assessment: Mod/High Risk (score >= 2) Caprini Risk Assessment Model Point Value = 1 Point Value = 2 Point Value = 3 Point Value = 5 Age 41-60 Minor surgery BMI > 25 kg/m2 Swollen legs Varicose veins or History of unexplained or recurrent spontaneous Oral contraceptives or hormone replacement Sepsis (< 1 month) Serious lung disease, including pneumonia (< 1 month) Abnormal pulmonary function Acute myocardial infarction Congestive heart failure (< 1 month) History of inflammatory bowel disease Medical patient at bed rest Age 61-74 Arthroscopic surgery Major open surgery (> 45 min) Laparoscopic surgery (> 45 min) Malignancy Confined to bed (> 72 hours) Immobilizing plaster cast Central venous access Age >= 75 History of VTE Family history of VTE Factor V Leiden Prothrombin [id number] Lupus anticoagulant Anticardiolipin antibodies Elevated serum homocysteine Heparin-induced thrombocytopenia Other congenital or acquired thrombophilia Stroke (< 1 month) Elective arthroplasty Hip, pelvis, or leg fracture Acute spinal cord injury (< 1 month) Prophylaxis Regimen Total Risk Factor Score Risk Level Prophylaxis Regimen 0-1 Low Early ambulation 2 Moderate Order ONE of the following: *Sequential Compression Device (SCD) *Heparin 5000 units SQ BID 3-4 Higher Order ONE of the following medications: *Heparin 5000 units SQ TID *Enoxaparin/Lovenox 40 mg SQ daily (WT < 150 kg, CrCl > 30 mL/min) *Enoxaparin/Lovenox 30 mg SQ daily (WT < 150 kg, CrCl > 10-29 mL/min) *Enoxaparin/Lovenox 30 mg SQ BID (WT < 150 kg, CrCl > 30 mL/min) AND/OR *Sequential Compression Device (SCD) 5 or more Highest Order ONE of the following medications: *Heparin 5000 units SQ TID (Preferred with Epidurals) *Enoxaparin/Lovenox 40 mg SQ daily (WT < 150 kg, CrCl > 30 mL/min) *Enoxaparin/Lovenox 30 mg SQ daily (WT < 150 kg, CrCl > 10-29 mL/min) *Enoxaparin/Lovenox 30 mg SQ BID (WT < 150 kg, CrCl > 30 mL/min) AND *Sequential Compression Device (SCD) Assessment and Plan Problem List: (1) Cellulitis ICD Code: L03.90 - Cellulitis, unspecified Status: Acute Plan: Failed outpatient therapy. Difficulty with healing likely due to poor vascularization. - Vascular surgery consulted. Appreciate input. - Continue antibiotics with vancomycin and Zosyn. Monitor response - Podiatry consulted. (2) PAD (peripheral artery disease) ICD Code: I73.9 - Peripheral vascular disease, unspecified Plan: Vascular surgery evaluated the patient and planning for angiogram on Monday or Monday. Continue aspirin, statin (3) HTN (hypertension) ICD Code: I10 - Essential (primary) hypertension Plan: Resume amlodipine and losartan. Monitor BP and titrate antihypertensives as needed. (4) Diabetes ICD Code: E11.9 - Type 2 diabetes mellitus without complications Plan: Diet controlled. (5) Failure of outpatient treatment ICD Code: Z78.9 - Other specified health status Status: Acute Physician Certification 2 Midnight Certification Type: Admission for Inpatient Services Order for Inpatient Services The services are ordered in accordance with Medicare regulations or non- Medicare payer requirements, as applicable. In the case of services not specified as inpatient-only, they are appropriately provided as inpatient services in accordance with the 2-midnight benchmark. Estimated LOS (days): 4 days is the estimated time the patient will need to remain in the hospital, assuming treatment plan goals are met and no additional complications. Post-Hospital Plan: Not yet determined Problem Qualifiers (1) Cellulitis: Qualified Codes: L03.031 - Cellulitis of right toe Kelli Crystal MD Jun 01, 2017 19:28
[2017-06-01] MEDS ORDERED: diphenhydrAMINE HCL 50 MG/ML VIAL IV PUSH ONE (19:45)
--- NOTE | 2017-06-01 20:19 | PD.VS.CON ---
History of Present Illness Chief Complaint: R foot tissue loss Consult Requested by: ED History of Present Illness 77 yo male with R foot tissue loss that started last Monday. Had antecedent claudication and notes that he was worked up at the [facility] and told he had "25%" of the blood flow he should have. Toe is painful and worsening redness so he presented to the ED today. Past/Family/Social History Past Medical History CAD HTN BPH gout DM ED provoked PE spinal stenosis PAD Past Surgical History back surgery complicated by 1m in hospital (resp failure, trach) [facility] in 2000 IHR cataracts Social History quit smoking 18 years ago of [facility] Family History [place] Home Medications Active Scripts Tramadol (Tramadol) 50 Mg Tab, 50 MG PO Q6H Y for PAIN, #15 TAB 0 Refills Prov:Nicole Mejia MD 05/29/17 Sulfamethoxazole-Trimethoprim (Bactrim DS) 800-160 Mg Tab, 1 TAB PO BID for Infection, #14 TAB 0 Refills Prov:Nicole Mejia MD 05/29/17 Oxycodone (Oxycodone) 5 Mg Cap, 5 MG PO Q6H Y for PAIN, #15 CAP 0 Refills Prov:Tania Sanders MD 03/29/17 Reported Medications Tamsulosin (Flomax) 0.4 Mg Cap, 0.8 MG PO HS for Manage Prostate Problems, #60 CAP 0 Refills 01/23/17 Losartan (Cozaar) 100 Mg Tab, 100 MG PO DAILY for Blood Pressure Management, # 30 TAB 0 Refills 01/23/17 Lidocaine Patch 12 HR (Lidocaine Patch 12 HR) 5 % Patch, 1 PATCH TOPICAL DAILY for Pain Management, #1 BOX 0 Refills Remove patch after 12 hours 01/23/17 Fluticasone Nasal [place] (Fluticasone Nasal [place]) 50 Mcg/Act Naspr, 2 SPRAY EACH NARE DAILY for Allergy Management, #1 BOTTLE 0 Refills 50 mcg/spray 01/23/17 Atorvastatin (Lipitor) 20 Mg Tab, 10 MG PO HS for Cholesterol Management, #30 TAB 0 Refills 01/23/17 Amlodipine (Amlodipine) 10 Mg Tab, 10 MG PO DAILY for Blood Pressure Management , #30 TAB 0 Refills 01/23/17 Sertraline (Zoloft) 100 Mg Tab, 150 MG PO DAILY for Mood, #30 TAB 0 Refills 01/23/17 Pramipexole (Pramipexole) 1 Mg Tab, 1 MG PO HS for Parkinson Disease Mgmt, #30 TAB 0 Refills 01/23/17 Omeprazole (Omeprazole) 20 Mg Tab, 20 MG PO DAILY for Reflux, #30 TAB 0 Refills 01/23/17 Ipratropium Nasal (Ipratropium Nasal) 0.06% [place], 2 SPRAY EACH NARE BID, #1 BOTTLE 0 Refills 01/23/17 Capsaicin Topical (Capsaicin Topical) 0.1% Cream, 1 APPLIC TOPICAL DAILY Y for PAIN, TUBE Wash hands immediately after use 01/23/[address] (Aspirin Adult Low Strength) 81 Mg Tabdr, 81 MG PO DAILY for Heart Health, TAB 01/23/17 Alprazolam (Alprazolam) 0.5 Mg Tab, 0.5 MG PO BID Y for ANXIETY, TAB 0 Refills 01/23/17 Discontinued Reported Medications Amoxicillin (Amoxicillin) 500 Mg Cap, 500 MG PO TID for Infection, CAP 0 Refills 03/29/17 Discontinued Scripts Prednisone (48) 5 mg tab Dose Pack (Prednisone (48) 5 mg tab Dose Pack) 5 Mg Dspk, 5 MG PO DIRECTED for Inflammation, #1 DSPK 0 Refills Prov:Tania Sanders MD 03/29/17 Coded Allergies: amitriptyline (Verified Allergy, Unknown, B/P PROB, 06/01/17) ciprofloxacin (Verified Allergy, Unknown, 06/01/17) dexamethasone (Verified Allergy, Unknown, 06/01/17) fosinopril (Verified Allergy, Unknown, 06/01/17) gabapentin (Verified Allergy, Unknown, 06/01/17) sulindac (Verified Allergy, Unknown, 06/01/17) Review of Systems Constitutional: COMPLAINS OF: Fatigue, DENIES: Fever, Chills Cardiovascular: COMPLAINS OF: Dyspnea on Exertion, Claudication Genitourinary: COMPLAINS OF: Sexual dysfunction Neurologic: COMPLAINS OF: Abnormal gait Physical Exam Vitals/I&O Date Time Temp Pulse Resp B/P (MAP) Pulse Ox O2 Delivery O2 Flow Rate FiO2 06/01/17 18:46 06/01/17 17:06 82 16 189/81 (117) 95 Room Air 06/01/17 14:18 88 18 06/01/17 13:22 98.2 87 20 180/108 (132) 97 06/01/17 06/01/17 06/01/17 06:59 14:59 22:59 Intake Total 250 ml Balance 250 ml Neuro: alert, oriented, no distress HEENT: NC/AT Neck: no JVD, trachea midline Heart: reg rate, no M Lungs: clear B Abdomen: NT Vascular: palpable femoral pulses but no popliteal pulses or pedal pulses on R Extremities: cyanotic digit Laboratory Tests Test 06/01/17 14:35 White Blood Count 8.6 Red Blood Count 4.85 Hemoglobin 14.3 Hematocrit 42.5 Mean Corpuscular Volume 87.5 Mean Corpuscular Hemoglobin 29.5 Mean Corpuscular Hemoglobin Concent 33.7 Red Cell Distribution Width 13.8 Platelet Count 264 Mean Platelet Volume 8.1 Neutrophils (%) (Auto) 64.4 Lymphocytes (%) (Auto) 20.8 Monocytes (%) (Auto) 12.7 Eosinophils (%) (Auto) 1.4 Basophils (%) (Auto) 0.7 Neutrophils # (Auto) 5.5 Lymphocytes # (Auto) 1.8 Monocytes # (Auto) 1.1 Eosinophils # (Auto) 0.1 Basophils # (Auto) 0.1 CBC Comment DIFF FINAL Differential Comment Blood Urea Nitrogen 16 Creatinine 1.20 Random Glucose 98 Calcium Level 9.3 Sodium Level 135 Potassium Level 3.7 Chloride Level 100 Carbon Dioxide Level 27.5 Anion Gap 8 Estimat Glomerular Filtration Rate 59 C-Reactive Protein 3.18 Date/Time Source Procedure Growth Status 06/01/17 14:35 Blood Peripheral Aerobic Blood Culture Pending Received 06/01/17 14:35 Blood Peripheral Anaerobic Blood Culture Pending Received Last 48 hours Impressions Aorta w/Runoff CTA 06/01/17 0000 Signed Impressions: Service Date/Time: June 15:53 - CONCLUSION: Moderate eccentric stenosis in the right common iliac artery Severe diffuse right leg SFA disease and 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 The popliteal artery below this reconstitutes and appears to be a satisfactory target vessel with intact three-vessel calf runoff thereafter noted. 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 Leo Maher MD Assessment and Plan Plan Acute on chronic PAD, R LE SFA disease primarily. 1. Plan for angiogram on M/T next week. Discussed with patient who agrees. 2. ASA/statin/beta nicol 3. ABIs 4. WBAT [facility] establishment manager [facility] Heart [facility] V[facility] Surgery at [facility] [phone] Vishal Loaiza MD Jun 01, 2017 20:19
[2017-06-01] MEDS: DOCUSATE SODIUM 50 MG/SENNA 8.6 MG TAB PO SCH (20:21)
[2017-06-01 21:00] VITALS: BP 190/82; PULSE 100; RESP 20; TEMP 98.7; O2SAT 92
[2017-06-01] MEDS ORDERED: oxyCODONE/ACETAMINOPHEN 5 MG/325 MG TAB PO ONE (21:15)
[2017-06-01] MEDS: SODIUM CHLORIDE 0.9% FLUSH 10 ML FLUSH IV FLUSH SCH (21:40)
[2017-06-01] MEDS ORDERED: oxyCODONE/ACETAMINOPHEN 5 MG/325 MG TAB PO PRN (23:45)
[2017-06-02 00:50] VITALS: BP 174/81; PULSE 92; RESP 19; TEMP 98.3; O2SAT 93
[2017-06-02] MEDS: oxyCODONE/ACETAMINOPHEN 10 MG/325 MG TAB PO PRN ×3 (01:45→12:24)
[2017-06-02] MEDS ORDERED: cloNIDine HCL 0.1 MG TAB PO PRN (04:15)
[2017-06-02] MEDS: ATORVASTATIN 10 MG TAB PO SCH ×2 (04:47→20:26)
[2017-06-02] MEDS: MORPHINE SULFATE 2 MG/ML INJ IV PUSH PRN (04:49)
[2017-06-02] MEDS: PIPERACIL-TAZO 3.375 GM PREMIX 50 ML IV SCH ×3 (05:00→18:14)
[2017-06-02] MEDS: HEPARIN SODIUM - SQ 10,000 UNITS/ML VIAL SQ SCH ×2 (05:00→18:18)
[2017-06-02 05:30] VITALS: BP 159/70; PULSE 77; RESP 18; TEMP 98.3; O2SAT 93
[2017-06-02] MEDS: LOSARTAN 50 MG TAB PO SCH (07:40)
[2017-06-02] MEDS: SODIUM CHLORIDE 0.9% FLUSH 10 ML FLUSH IV FLUSH SCH ×2 (07:40→20:27)
[2017-06-02] MEDS: PANTOPRAZOLE SOD 20 MG DELAYED RELEASE TAB PO SCH (07:41)
[2017-06-02] MEDS: DOCUSATE SODIUM 50 MG/SENNA 8.6 MG TAB PO SCH ×2 (07:41→20:26)
[2017-06-02] MEDS: ASPIRIN 325 MG TAB PO SCH (07:42)
[2017-06-02] MEDS: SERTRALINE HCL 100 MG TAB PO SCH (07:43)
[2017-06-02 08:05] VITALS: BP 153/70; PULSE 75; RESP 17; TEMP 97.6; O2SAT 94
[2017-06-02] MEDS ORDERED: GLUCAGON 1 MG/ML VIAL OTHER PRN (08:15)
[2017-06-02] MEDS ORDERED: DEXTROSE 50% IN WATER 50 ML VIAL(D50) IV PUSH PRN (08:15)
--- NOTE | 2017-06-02 08:22 | HHI.PR ---
Subjective Remarks in no acute distress. denies pain. no fever. no new complaints. Objective Vitals Vital Signs Date Time Temp Pulse Resp B/P (MAP) Pulse Ox O2 Delivery O2 Flow Rate FiO2 06/02/17 08:05 97.6 75 17 153/70 (97) 94 06/02/17 05:30 98.3 77 18 159/70 (99) 93 06/02/17 00:50 98.3 92 19 174/81 (112) 93 06/01/17 21:00 98.7 100 20 190/82 (118) 92 06/01/17 18:46 06/01/17 17:06 82 16 189/81 (117) 95 Room Air 06/01/17 14:18 88 18 06/01/17 13:22 98.2 87 20 180/108 (132) 97 I/O 06/01/17 06/01/17 06/01/17 06/02/17 06/02/17 06/02/17 07:00 15:00 23:00 07:00 15:00 23:00 Intake Total 1000 ml 1400 ml Output Total 400 ml 400 ml Balance 600 ml 1000 ml Intake Oral 750 ml 1000 ml IV Total 250 ml 400 ml Output Urine Total 400 ml 400 ml # Voids 3 # Bowel Movements 0 0 Result Diagram: 06/01/17 1435 06/01/17 1435 Imaging Last Impressions Aorta w/Runoff CTA 06/01/17 0000 Signed Impressions: Service Date/Time: June 15:53 - CONCLUSION: Moderate eccentric stenosis in the right common iliac artery Severe diffuse right leg SFA disease and 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 The popliteal artery below this reconstitutes and appears to be a satisfactory target vessel with intact three-vessel calf runoff thereafter noted. 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 Leo Maher MD Objective Remarks GENERAL: This is a well-nourished, well-developed patient, in no apparent distress. CARDIOVASCULAR: Regular rate and regular rhythm without murmurs, gallops, or rubs. RESPIRATORY: Clear to auscultation. Breath sounds equal bilaterally. No wheezes , rales, or rhonchi. GASTROINTESTINAL: Abdomen soft, non-tender, nondistended. Normal, active bowel sounds MUSCULOSKELETAL: cyanotic right fourth toe . NEURO: Alert & Oriented x4 to person, place, time, situation. Moves all ext x4 Medications and IVs Inpatient Medications Acetaminophen (Tylenol) 650 mg Q6H PRN PO PAIN SCALE 1 TO 2; Start 06/01/17 at 17:00 Acetaminophen/ Hydrocodone Bitart ([place] 5-325 Mg) 1 tab Q4H PRN PO PAIN SCALE 3 TO 5; Start 06/01/17 at 17:00; Stop 06/01/17 at 23:42; Status DC Acetaminophen/ Hydrocodone Bitart ([place] 7.5-325 Mg) 1 tab Q4H PRN PO PAIN SCALE 6 TO 10 Last administered on 06/01/17at 18:30; Start 06/01/17 at 17:00; Stop 06/01/17 at 23:42; Status DC Alprazolam (Xanax) 0.5 mg BID PRN PO ANXIETY; Start 06/02/17 at 04:15 Amlodipine Besylate (Norvasc) 10 mg DAILY PO Last administered on 06/02/17at 07: 42; Start 06/02/17 at 09:00 Aspirin (Aspirin) 325 mg DAILY PO Last administered on 06/02/17at 07:42; Start at 09:00 Aspirin (Ecotrin Ec) 81 mg DAILY PO ; Start 06/02/17 at 09:00; Stop 06/02/17 at 09 :00; Status DC Atorvastatin Calcium (Lipitor) 10 mg HS PO ; Start 06/02/17 at 04:30 Bisacodyl (Dulcolax Supp) 10 mg DAILY PRN RECTAL SEVERE CONSITIPATION; Start at 17:00 Clonidine (Catapres) 0.1 mg Q6H PRN PO SBP> OR = 180, DBP> OR = 100; Start 06/02 at 04:15 Diphenhydramine HCl (Benadryl Inj) 25 mg ONCE ONCE IV PUSH Last administered on 06/01/17at 19:50; Start 06/01/17 at 19:45; Stop 06/01/17 at 19:49; Status DC Fluticasone Propionate (Flonase Rob Spr) 2 spray DAILY EACH NARE ; Start at 09:00 Heparin Sodium (Porcine) (Heparin Inj) 5,000 units Q12H SQ Last administered on 06/02/17at 05:00; Start 06/01/17 at 18:00 Influenza Virus Vaccine (Flu (Quadrivalent) Vaccine Inj) 0.5 ml ONCE ONCE IM ; Start 06/02/17 at 10:00; Stop 06/02/17 at 10:01 Lactulose (Lactulose Liq) 30 ml DAILY PRN PO SEVERE CONSITIPATION; Start at 17:00 Losartan Potassium (Cozaar) 100 mg DAILY PO Last administered on 06/02/17at 07:40 ; Start 06/02/17 at 09:00 Magnesium Hydroxide (Milk Of Magnesia Liq) 30 ml Q12H PRN PO Mild constipation ; Start 06/01/17 at 17:00 Miscellaneous Information SPECIFIC LAB TO BE ZURDO... ONCE ONCE .XX ; Start at 20:45; Stop 06/03/17 at 20:46 Morphine Sulfate (Morphine Inj) 2 mg Q3H PRN IV PUSH breakthrough Last administered on 06/02/17at 04:49; Start 06/02/17 at 04:45 Naloxone HCl (Narcan Inj) 0.4 mg UNSCH PRN IV PUSH SEE LABEL COMMENTS; Start at 17:00 Ondansetron HCl (Zofran Inj) 4 mg Q6H PRN IVP NAUSEA OR VOMITING; Start at 17:00 Oxycodone/ Acetaminophen (Percocet 5-325 Mg) 1 tab Q6H PRN PO pain 1-5; Start 06/01/17 at 23:45 Oxycodone/ Acetaminophen (Percocet 10-325 Mg) 1 tab Q6H PRN PO pain 6-10 Last administered on 06/02/17at 07:46; Start 06/01/17 at 23:45 Pantoprazole Sodium (Protonix) 20 mg DAILY PO Last administered on 06/02/17at 07: 41; Start 06/02/17 at 09:00 Pharmacy Profile Note 0 ml @ 0 mls/hr UNSCH OTHER ; Start 06/01/17 at 17:00 Piperacillin Sod/ Tazobactam Sod 50 ml @ 100 mls/hr Q6H IV Last administered on 06/02/17at 05:00; Start 06/01/17 at 18:00 Pramipexole Dihydrochloride (Mirapex) 1 mg HS PO ; Start 06/02/17 at 21:00 Senna/Docusate Sodium (Naila-Colace) 1 tab BID PO Last administered on 06/02/17at 07:41; Start 06/01/17 at 21:00 Sennosides (Senokot) 17.2 mg Q12H PRN PO Moderate constipation; Start 06/01/17 at 17:00 Sertraline HCl (Zoloft) 150 mg DAILY PO Last administered on 06/02/17at 07:43; Start 06/02/17 at 09:00 Sodium Chloride (NS Flush) 2 ml BID IV FLUSH Last administered on 06/02/17at 07: 40; Start 06/01/17 at 21:00 Tamsulosin HCl (Flomax) 0.8 mg HS PO ; Start 06/02/17 at 21:00 Vancomycin HCl 1000 mg/Sodium Chloride 250 ml @ 250 mls/hr Q18H IV Last administered on 06/02/17at 01:51; Start 06/01/17 at 09:00 A/P Problem List: (1) Cellulitis ICD Code: L03.90 - Cellulitis, unspecified Status: Acute (2) PAD (peripheral artery disease) ICD Code: I73.9 - Peripheral vascular disease, unspecified (3) HTN (hypertension) ICD Code: I10 - Essential (primary) hypertension (4) Diabetes ICD Code: E11.9 - Type 2 diabetes mellitus without complications (5) Failure of outpatient treatment ICD Code: Z78.9 - Other specified health status Status: Acute Assessment and Plan A/P cellulitis of the right fourth toe. Failed outpatient therapy. Difficulty with healing likely due to poor vascularization. - Continue antibiotics with vancomycin and Zosyn. Monitor response -vascular surgery consulted and plan for angiogram next week. - Podiatry consulted. PAD (peripheral artery disease) Vascular surgery evaluated the patient and planning for angiogram on Monday or Monday. Continue aspirin, statin HTN (hypertension) Resumed amlodipine and losartan. Monitor BP and titrate antihypertensives as needed. Diabetes Diet controlled. continue SSI. DVT prophylaxis with subq Heparin. Discharge Planning plan for angiogram next week. Problem Qualifiers (1) Cellulitis: Qualified Codes: L03.031 - Cellulitis of right toe Raquel Valenzuela MD Jun 02, 2017 08:22
[2017-06-02] MEDS ORDERED: ASPIRIN EC 81 MG TABEC PO SCH (09:00)
[2017-06-02 09:12] LABS: BICARBONATE 25.6 MEQ/L (21.0-32.0); CREATININE 1.43 MG/DL (0.60-1.30)
[2017-06-02] MEDS: FLUTICASONE PROPIONATE 50 MCG/ACT 16 GM NASAL SPRAY EACH NARE SCH (09:43)
--- NOTE | 2017-06-02 09:55 | RADRPT ---
EXAM DATE/TIME: 06/01/2017 00:00 [place] COMPARISON: CTA RUNOFF W 3D RECON, June 01, 2017, 15:53. INDICATIONS : Toe Cellulitis, Outpatient Treatment Failure TECHNIQUE: Four-cuff ankle and brachial pressures were obtained. Pulse cuff waveform tracings of the ankles were recorded, and ankle-brachial indices were calculated. PRESSURES (mmHg): Brachial (arm): Right IV SITE Left 116 Ankle: Right 41 Left 91 JAYME: Right 0.35 Left 0.78 TBI: Right 0.00 Left 0.53 PULSED CUFF WAVEFORMS: There is diminished pulse wave tracings on the right compared to left.. CONCLUSION: Depressed arterial pressures on the right leg congruent with the CTA runoff with stenosis in the righ t common iliac diffuse right SFA and popliteal disease. 3 vessel trifurcation is present on the righ t with the posterior tibial artery providing flow to the plantar arch. Nickolas Lemos MD FACR on June 02, 2017 at 9:52 Board Certified Radiologist. This report was verified electronically.
[2017-06-02] MEDS ORDERED: INFLUENZA VIRUS VACCINE (QUADRIVALENT) 0.5 ML SYR IM ONE (10:00)
[2017-06-02] MEDS: INSULIN ASPART SUPPLEMENTAL SCALE SQ SCH ×3 (11:19→20:33)
[2017-06-02 12:16] VITALS: BP 137/63; PULSE 62; RESP 17; TEMP 97.7; O2SAT 94
--- NOTE | 2017-06-02 13:23 | PD.VS.PN ---
Subjective Subjective/Hospital Course 77/M w/ a hx of R foot tissue loss and non palpable distal pulse. Pt doing well w/o complaints Objective Vitals/I&O Date Time Temp Pulse Resp B/P (MAP) Pulse Ox O2 Delivery O2 Flow Rate FiO2 06/02/17 12:16 97.7 62 17 137/63 (87) 94 06/02/17 08:05 97.6 75 17 153/70 (97) 94 06/02/17 05:30 98.3 77 18 159/70 (99) 93 06/02/17 00:50 98.3 92 19 174/81 (112) 93 06/01/17 21:00 98.7 100 20 190/82 (118) 92 06/01/17 18:46 06/01/17 17:06 82 16 189/81 (117) 95 Room Air 06/01/17 14:18 88 18 06/01/17 13:22 98.2 87 20 180/108 (132) 97 06/02/17 06/02/17 06/02/17 07:00 15:00 23:00 Intake Total 1400 ml Output Total 400 ml Balance 1000 ml Laboratory Laboratory Tests Test 06/01/17 14:35 06/02/17 06:30 White Blood Count 8.6 Red Blood Count 4.85 Hemoglobin 14.3 Hematocrit 42.5 Mean Corpuscular Volume 87.5 Mean Corpuscular Hemoglobin 29.5 Mean Corpuscular Hemoglobin Concent 33.7 Red Cell Distribution Width 13.8 Platelet Count 264 Mean Platelet Volume 8.1 Neutrophils (%) (Auto) 64.4 Lymphocytes (%) (Auto) 20.8 Monocytes (%) (Auto) 12.7 Eosinophils (%) (Auto) 1.4 Basophils (%) (Auto) 0.7 Neutrophils # (Auto) 5.5 Lymphocytes # (Auto) 1.8 Monocytes # (Auto) 1.1 Eosinophils # (Auto) 0.1 Basophils # (Auto) 0.1 CBC Comment DIFF FINAL Differential Comment Blood Urea Nitrogen 16 20 Creatinine 1.20 1.43 Random Glucose 98 96 Calcium Level 9.3 9.0 Sodium Level 135 134 Potassium Level 3.7 4.4 Chloride Level 100 97 Carbon Dioxide Level 27.5 25.6 Anion Gap 8 11 Estimat Glomerular Filtration Rate 59 48 C-Reactive Protein 3.18 Erythrocyte Sedimentation Rate 14 Date/Time Source Procedure Growth Status 06/01/17 14:35 Blood Peripheral Aerobic Blood Culture - Preliminary NO GROWTH IN 1 DAY Resulted 06/01/17 14:35 Blood Peripheral Anaerobic Blood Culture - Preliminary NO GROWTH IN 1 DAY Resulted Imaging Last 48 hours Impressions Aorta w/Runoff CTA 06/01/17 0000 Signed Impressions: Service Date/Time: June 15:53 - CONCLUSION: Moderate eccentric stenosis in the right common iliac artery Severe diffuse right leg SFA disease and 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 The popliteal artery below this reconstitutes and appears to be a satisfactory target vessel with intact three-vessel calf runoff thereafter noted. 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 Leo Mhaer MD Assessment and Plan Assessment: (1) PAD (peripheral artery disease) Plan Acute on chronic PAD, R LE SFA disease primarily. Plan Discussed and reviewed R LE angiogram for revascularization (R LE) Questions answered and pt agrees w/ plan Pt scheduled for R LE angiogram w/ Dr. Loaiza ([facility]- 06/06/17) Consent signed and placed in the chart Continue CV risk factor modification -ASA/statin/beta nicol May WBAT Sarbina Marquis NP [facility] [phone] Sabrina Marquis Jun 02, 2017 13:23
[2017-06-02] MEDS ORDERED: diphenhydrAMINE HCL 50 MG/ML VIAL IV PUSH ONE (15:00)
[2017-06-02 16:16] VITALS: BP 140/63; PULSE 80; RESP 16; TEMP 99.5; O2SAT 96
--- NOTE | 2017-06-02 17:31 | PD.CONS ---
History of Present Illness Service Foot and ankle surgery/podiatry Consult Requested By Reason for Consult Right fourth digit infection Primary Care Physician [facility] Diagnoses: History of Present Illness Podiatry consulted for this 77-year-old male with past medical history significant for hypertension, diet-controlled diabetes, history of PE for worsening right fourth toe infection. Patient states he tried to cut out an ingrown toenail to the medial border of the right fourth digit. He was seen in the emergency room in [place] and was given oral antibiotics and pain medications he noticed the symptoms getting worse over the past few days and discoloration to fourth digit. Denies any nausea vomiting fevers or chills. Review of Systems Constitutional: DENIES: Fever Endocrine: DENIES: Heat/cold intolerance Ears, nose, mouth, throat: DENIES: Vertigo Respiratory: DENIES: Cough, Shortness of breath Cardiovascular: DENIES: Chest pain, Palpitations Musculoskeletal: DENIES: Joint pain, Muscle aches Psychiatric: DENIES: Anxiety, Confusion Past Family Social History Allergies: Coded Allergies: hydrocodone (Verified Allergy, Mild, 06/02/17) Patient started having redness around the mouth, chills, and slight swelling of the tongue. amitriptyline (Verified Allergy, Unknown, B/P PROB, 06/01/17) ciprofloxacin (Verified Allergy, Unknown, 06/01/17) dexamethasone (Verified Allergy, Unknown, 06/01/17) fosinopril (Verified Allergy, Unknown, 06/01/17) gabapentin (Verified Allergy, Unknown, 06/01/17) sulindac (Verified Allergy, Unknown, 06/01/17) Past Medical History As dictated in HPI Active Ordered Medications Current Medications Medications (Trade) Dose Ordered Sig/Mehreen Route Start Time Stop Time Status Last Admin (NS Flush) 2 ml UNSCH PRN IV FLUSH 06/01/17 17:00 (NS Flush) 2 ml BID IV FLUSH 06/01/17 21:00 06/02/17 07:40 (Tylenol) 650 mg Q4H PRN PO 06/01/17 17:00 (Zofran Inj) 4 mg Q6H PRN IVP 06/01/17 17:00 (Heparin Inj) 5,000 units Q12H SQ 06/01/17 18:00 06/02/17 05:00 (Narcan Inj) 0.4 mg UNSCH PRN IV PUSH 06/01/17 17:00 (Naila-Colace) 1 tab BID PO 06/01/17 21:00 06/02/17 07:41 (Milk Of Magnesia Liq) 30 ml Q12H PRN PO 06/01/17 17:00 (Senokot) 17.2 mg Q12H PRN PO 06/01/17 17:00 (Dulcolax Supp) 10 mg DAILY PRN RECTAL 06/01/17 17:00 (Lactulose Liq) 30 ml DAILY PRN PO 06/01/17 17:00 Pharmacy Profile Note 0 ml @ 0 mls/hr UNSCH OTHER 06/01/17 17:00 Piperacillin Sod/ Tazobactam Sod 50 ml @ 100 mls/hr Q6H IV 06/01/17 18:00 06/02/17 11:28 Vancomycin HCl 1000 mg/Sodium Chloride 250 ml @ 250 mls/hr Q18H IV 06/01/17 09:00 Future Hold 06/02/17 01:51 Miscellaneous Information SPECIFIC LAB TO BE ZURDO... ONCE ONCE .XX 06/03/17 20:45 06/03/17 20:46 (Xanax) 0.5 mg BID PRN PO 06/02/17 04:15 (Norvasc) 10 mg DAILY PO 06/02/17 09:00 06/02/17 07:42 (Lipitor) 10 mg HS PO 06/02/17 04:30 (Flonase Rob Spr) 2 spray DAILY EACH NARE 06/02/17 09:00 06/02/17 09:43 (Cozaar) 100 mg DAILY PO 06/02/17 09:00 06/02/17 07:40 (Mirapex) 1 mg HS PO 06/02/17 21:00 (Zoloft) 150 mg DAILY PO 06/02/17 09:00 06/02/17 07:43 (Flomax) 0.8 mg HS PO 06/02/17 21:00 (Protonix) 20 mg DAILY PO 06/02/17 09:00 06/02/17 07:41 (Aspirin) 325 mg DAILY PO 06/02/17 09:00 06/02/17 07:42 (Catapres) 0.1 mg Q6H PRN PO 06/02/17 04:15 (Morphine Inj) 2 mg Q3H PRN IV PUSH 06/02/17 04:45 06/02/17 04:49 (D50w (Vial) Inj) 50 ml UNSCH PRN IV PUSH 06/02/17 08:15 (Glucagon Inj) 1 mg UNSCH PRN OTHER 06/02/17 08:15 (NovoLOG SUPPLEMENTAL SCALE) 1 ACHS SLIDING SCALE SQ 06/02/17 12:00 (Ultram) 50 mg Q8H PRN PO 06/02/17 15:00 (Benadryl) 25 mg Q6H PRN PO 06/02/17 21:00 Physical Exam Vital Signs Vital Signs Date Time Temp Pulse Resp B/P (MAP) Pulse Ox O2 Delivery O2 Flow Rate FiO2 06/02/17 16:16 99.5 80 16 140/63 (88) 96 06/02/17 12:16 97.7 62 17 137/63 (87) 94 06/02/17 08:05 97.6 75 17 153/70 (97) 94 06/02/17 05:30 98.3 77 18 159/70 (99) 93 06/02/17 00:50 98.3 92 19 174/81 (112) 93 06/01/17 21:00 98.7 100 20 190/82 (118) 92 06/01/17 18:46 Physical Exam GENERAL: This is a well-nourished, well-developed patient, in no apparent distress. SKIN: Right fourth digit medial border of the nail eschar noted HEAD: Atraumatic. EYES: Pupils equal round and reactive. ENT: Airway patent. NECK: Trachea midline. RESPIRATORY: Nonlabored breathing. MUSCULOSKELETAL:. Negative Homans sign bilaterally. NEUROLOGICAL: Awake and alert. Normal speech. Lower extremity physical exam: Vascular: Dorsalis pedis nonpalpable, posterior tibial nonpalpable. Capillary refill time within normal limits to digits 5 under 5 seconds to bilateral foot. Edema present right fourth digit of right foot. Neuro: Gross sensation intact to bilateral lower extremity. Pinpoint sensation within normal limits. No hyperalgesia noted to bilateral lower extremity Dermatology: Normal temperature and turgor to bilateral lower extremity. Eschar noted to right fourth digit medial border of nail with no drainage noted , no purulent drainage noted on compression. Dusky appearance to distal aspect of fourth digit, erythema noted to proximal aspect of fourth digit ascending into midfoot. Streaking noted into the midfoot. No other open lesions noted to right foot. Musculoskeletal: Tender to palpation to right fourth digit. Laboratory Laboratory Tests Test 06/02/17 06:30 Erythrocyte Sedimentation Rate 14 Blood Urea Nitrogen 20 Creatinine 1.43 Random Glucose 96 Calcium Level 9.0 Sodium Level 134 Potassium Level 4.4 Chloride Level 97 Carbon Dioxide Level 25.6 Anion Gap 11 Estimat Glomerular Filtration Rate 48 Date/Time Source Procedure Growth Status 06/01/17 14:35 Blood Peripheral Aerobic Blood Culture - Preliminary NO GROWTH IN 1 DAY Resulted 06/01/17 14:35 Blood Peripheral Anaerobic Blood Culture - Preliminary NO GROWTH IN 1 DAY Resulted Result Diagram: 06/01/17 1435 06/02/17 0630 Imaging Last Impressions Aorta w/Runoff CTA 06/01/17 0000 Signed Impressions: Service Date/Time: June 15:53 - CONCLUSION: Moderate eccentric stenosis in the right common iliac artery Severe diffuse right leg SFA disease and 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 The popliteal artery below this reconstitutes and appears to be a satisfactory target vessel with intact three-vessel calf runoff thereafter noted. 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 Leo Maher MD Assessment and Plan Assessment and Plan 77-year-old male with right fourth digit infection Patient evaluated and treated with all questions answered, bedside Appreciate vascular note Vascular intervention to take place on Monday Patient to follow-up with podiatry once vascular intervention takes place Applied Betadine and dry sterile dressing to fourth digit Continue applying Betadine and dry sterile dressing to fourth digit No surgical intervention planned at this time Will order right foot x-ray and review Janki Colby DPM Jun 02, 2017 17:31
[2017-06-02] MEDS: TAMSULOSIN HCL 0.4 MG CAP PO SCH (20:26)
[2017-06-02] MEDS: ALPRAZolam 0.5 MG TAB PO PRN (20:26)
[2017-06-02] MEDS: PRAMIPEXOLE DIHYDROCHLORIDE 1 MG TAB PO SCH (20:27)
--- NOTE | 2017-06-02 20:33 | RADRPT ---
EXAM DATE/TIME: 06/02/2017 19:51 [place] COMPARISON: No previous studies available for comparison. INDICATIONS : Complains of pain of fourth digit right foot. Patient states in grown toenail. MEDICAL HISTORY : Diabetes mellitus type II. SURGICAL HISTORY : None. ENCOUNTER: Initial ACUITY: 4 - 6 days PAIN SCORE: 8/10 LOCATION: Right distal foot, 4th digit FINDINGS: There is a bunion deformity. Joint space narrowing is noted involving the first and second metatarsop halangeal joints as well as the first interphalangeal joint. No acute fracture or dislocation is note d. No radiopaque foreign body is noted. Achilles calcaneal spurring is noted. CONCLUSION: 1. No acute fracture or dislocation. 2. Joint space narrowing involving the first and second metatarsophalangeal joints and the first inte rphalangeal joint. 3. Achilles calcaneal spurring. Vishal Lindsay MD on June 02, 2017 at 20:28 Board Certified Radiologist. This report was verified electronically.
[2017-06-02] MEDS: traMADol HCL 50 MG TAB PO PRN (20:36)
[2017-06-02] MEDS ORDERED: diphenhydrAMINE HCL 25 MG CAP PO PRN (21:00)
[2017-06-02 21:45] VITALS: BP 123/60; PULSE 93; RESP 19; TEMP 99.1; O2SAT 92
[2017-06-03 01:00] VITALS: BP 137/61; PULSE 88; RESP 18; TEMP 98.4; O2SAT 94
[2017-06-03] MEDS: PIPERACIL-TAZO 3.375 GM PREMIX 50 ML IV SCH ×4 (01:00→17:34)
[2017-06-03 05:00] VITALS: BP 125/59; PULSE 80; RESP 22; TEMP 98.3; O2SAT 94
[2017-06-03] MEDS: HEPARIN SODIUM - SQ 10,000 UNITS/ML VIAL SQ SCH ×2 (05:05→17:34)
[2017-06-03] MEDS: INSULIN ASPART SUPPLEMENTAL SCALE SQ SCH ×4 (08:00→20:28)
--- NOTE | 2017-06-03 08:13 | HHI.PR ---
Subjective Remarks in no acute distress. pain is controlled. had some itching - probably due to reaction to percocet yesterday- which has improved. no fever. d/w the RN. Objective Vitals Vital Signs Date Time Temp Pulse Resp B/P (MAP) Pulse Ox O2 Delivery O2 Flow Rate FiO2 06/03/17 05:00 98.3 80 22 125/59 (81) 94 06/03/17 01:00 98.4 88 18 137/61 (86) 94 06/02/17 21:45 99.1 93 19 123/60 (81) 92 06/02/17 16:16 99.5 80 16 140/63 (88) 96 06/02/17 12:16 97.7 62 17 137/63 (87) 94 I/O 06/02/17 06/02/17 06/02/17 06/03/17 06/03/17 06/03/17 07:00 15:00 23:00 07:00 15:00 23:00 Intake Total 1400 ml 1540 ml 950 ml Output Total 400 ml 850 ml Balance 1000 ml 1540 ml 100 ml Intake Oral 1000 ml 1540 ml 850 ml IV Total 400 ml 100 ml Output Urine Total 400 ml 850 ml # Voids 3 6 2 # Bowel Movements 0 0 0 Result Diagram: 06/01/17 1435 06/02/17 0630 Imaging Last Impressions Foot X-Ray 06/02/17 0000 Signed Impressions: Service Date/Time: Friday, June 02, 2017 19:51 - CONCLUSION: 1. No acute fracture or dislocation. 2. Joint space narrowing involving the first and second metatarsophalangeal joints and the first interphalangeal joint. 3. Achilles calcaneal spurring. 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 The popliteal artery below this reconstitutes and appears to be a satisfactory target vessel with intact three-vessel calf runoff thereafter noted. 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 Leo Maher MD Objective Remarks GENERAL: This is a well-nourished, well-developed patient, in no apparent distress. CARDIOVASCULAR: Regular rate and regular rhythm without murmurs, gallops, or rubs. RESPIRATORY: Clear to auscultation. Breath sounds equal bilaterally. No wheezes , rales, or rhonchi. GASTROINTESTINAL: Abdomen soft, non-tender, nondistended. Normal, active bowel sounds MUSCULOSKELETAL: cyanotic right fourth toe . NEURO: Alert & Oriented x4 to person, place, time, situation. Moves all ext x4 Medications and IVs Inpatient Medications Acetaminophen (Tylenol) 650 mg Q6H PRN PO PAIN SCALE 1 TO 2; Start 06/01/17 at 17:00; Stop 06/02/17 at 15:10; Status DC Acetaminophen/ Hydrocodone Bitart ([place] 5-325 Mg) 1 tab Q4H PRN PO PAIN SCALE 3 TO 5; Start 06/01/17 at 17:00; Stop 06/01/17 at 23:42; Status DC Acetaminophen/ Hydrocodone Bitart ([place] 7.5-325 Mg) 1 tab Q4H PRN PO PAIN SCALE 6 TO 10 Last administered on 06/01/17at 18:30; Start 06/01/17 at 17:00; Stop 06/01/17 at 23:42; Status DC Alprazolam (Xanax) 0.5 mg BID PRN PO ANXIETY Last administered on 06/02/17at 20: 26; Start 06/02/17 at 04:15 Amlodipine Besylate (Norvasc) 10 mg DAILY PO Last administered on 06/02/17at 07: 42; Start 06/02/17 at 09:00 Aspirin (Aspirin) 325 mg DAILY PO Last administered on 06/02/17at 07:42; Start at 09:00 Aspirin (Ecotrin Ec) 81 mg DAILY PO ; Start 06/02/17 at 09:00; Stop 06/02/17 at 09 :00; Status DC Atorvastatin Calcium (Lipitor) 10 mg HS PO Last administered on 06/02/17at 20:26 ; Start 06/02/17 at 04:30 Bisacodyl (Dulcolax Supp) 10 mg DAILY PRN RECTAL SEVERE CONSITIPATION; Start at 17:00 Clonidine (Catapres) 0.1 mg Q6H PRN PO SBP> OR = 180, DBP> OR = 100; Start 06/02 at 04:15 Dextrose (D50w (Vial) Inj) 50 ml UNSCH PRN IV PUSH HYPOGLYCEMIA-SEE COMMENTS; Start 06/02/17 at 08:15 Diphenhydramine HCl (Benadryl Inj) 25 mg ONCE ONCE IV PUSH Last administered on 06/02/17at 15:09; Start 06/02/17 at 15:00; Stop 06/02/17 at 15:03; Status DC Diphenhydramine HCl (Benadryl) 25 mg Q6H PRN PO ITCHING Last administered on 06/02/17at 19:29; Start 06/02/17 at 21:00 Fluticasone Propionate (Flonase Rob Spr) 2 spray DAILY EACH NARE Last administered on 06/02/17at 09:43; Start 06/02/17 at 09:00 Glucagon (Glucagon Inj) 1 mg UNSCH PRN OTHER HYPOGLYCEMIA-SEE COMMENTS; Start 06/02/17 at 08:15 Heparin Sodium (Porcine) (Heparin Inj) 5,000 units Q12H SQ Last administered on 06/03/17at 05:05; Start 06/01/17 at 18:00 Influenza Virus Vaccine (Flu (Quadrivalent) Vaccine Inj) 0.5 ml ONCE ONCE IM ; Start 06/02/17 at 10:00; Stop 06/02/17 at 10:01; Status DC Insulin Aspart (NovoLOG SUPPLEMENTAL SCALE) 1 ACHS SLIDING SCALE SQ ; Start 06/02/17 at 12:00 Lactulose (Lactulose Liq) 30 ml DAILY PRN PO SEVERE CONSITIPATION; Start at 17:00 Losartan Potassium (Cozaar) 100 mg DAILY PO Last administered on 06/02/17at 07:40 ; Start 06/02/17 at 09:00 Magnesium Hydroxide (Milk Of Magnesia Liq) 30 ml Q12H PRN PO Mild constipation ; Start 06/01/17 at 17:00 Miscellaneous Information SPECIFIC LAB TO BE ZURDO... ONCE ONCE .XX ; Start at 20:45; Stop 06/03/17 at 20:46 Morphine Sulfate (Morphine Inj) 2 mg Q3H PRN IV PUSH breakthrough Last administered on 06/02/17at 04:49; Start 06/02/17 at 04:45 Naloxone HCl (Narcan Inj) 0.4 mg UNSCH PRN IV PUSH SEE LABEL COMMENTS; Start at 17:00 Ondansetron HCl (Zofran Inj) 4 mg Q6H PRN IVP NAUSEA OR VOMITING; Start at 17:00 Oxycodone/ Acetaminophen (Percocet 5-325 Mg) 1 tab Q6H PRN PO pain 1-5; Start 06/01/17 at 23:45; Stop 06/02/17 at 15:00; Status DC Oxycodone/ Acetaminophen (Percocet 10-325 Mg) 1 tab Q6H PRN PO pain 6-10 Last administered on 06/02/17at 12:24; Start 06/01/17 at 23:45; Stop 06/02/17 at 15:00; Status DC Pantoprazole Sodium (Protonix) 20 mg DAILY PO Last administered on 06/02/17at 07: 41; Start 06/02/17 at 09:00 Pharmacy Profile Note 0 ml @ 0 mls/hr UNSCH OTHER ; Start 06/01/17 at 17:00 Piperacillin Sod/ Tazobactam Sod 50 ml @ 100 mls/hr Q6H IV Last administered on 06/03/17at 05:05; Start 06/01/17 at 18:00 Pramipexole Dihydrochloride (Mirapex) 1 mg HS PO Last administered on 06/02/17at 20:27; Start 06/02/17 at 21:00 Senna/Docusate Sodium (Naila-Colace) 1 tab BID PO Last administered on 06/02/17at 20:26; Start 06/01/17 at 21:00 Sennosides (Senokot) 17.2 mg Q12H PRN PO Moderate constipation; Start 06/01/17 at 17:00 Sertraline HCl (Zoloft) 150 mg DAILY PO Last administered on 06/02/17at 07:43; Start 06/02/17 at 09:00 Sodium Chloride (NS Flush) 2 ml BID IV FLUSH Last administered on 06/02/17 20: 27; Start 06/01/17 at 21:00 Tamsulosin HCl (Flomax) 0.8 mg HS PO Last administered on 06/02/17at 20:26; Start 06/02/17 at 21:00 Tramadol HCl (Ultram) 50 mg Q8H PRN PO PAIN Last administered on 06/02/17at 20: 36; Start 06/02/17 at 15:00 Vancomycin HCl 1000 mg/Sodium Chloride 250 ml @ 250 mls/hr Q18H IV Last administered on 06/02/17at 01:51; Start 06/01/17 at 09:00; Status Future Hold A/P Problem List: (1) Cellulitis ICD Code: L03.90 - Cellulitis, unspecified Status: Acute (2) PAD (peripheral artery disease) ICD Code: I73.9 - Peripheral vascular disease, unspecified (3) HTN (hypertension) ICD Code: I10 - Essential (primary) hypertension (4) Diabetes ICD Code: E11.9 - Type 2 diabetes mellitus without complications (5) Failure of outpatient treatment ICD Code: Z78.9 - Other specified health status Status: Acute Assessment and Plan A/P cellulitis of the right fourth toe. Failed outpatient therapy. Difficulty with healing likely due to poor vascularization. - Continue antibiotics with vancomycin and Zosyn. Monitor response -will deescalate the antibiotic regimen if the cultures remain negative. -vascular surgery consulted and plan for angiogram this week. - Podiatry consult appreciated- no interventions at this time. PAD (peripheral artery disease) Vascular surgery evaluated the patient and planning for angiogram on Monday. Continue aspirin, statin HTN (hypertension) Resumed amlodipine and losartan. Monitor BP and titrate antihypertensives as needed. Diabetes Diet controlled. continue SSI. DVT prophylaxis with subq Heparin. Discharge Planning plan for angiogram this week. Problem Qualifiers (1) Cellulitis: Qualified Codes: L03.031 - Cellulitis of right toe Raquel Valenzuela MD Jun 03, 2017 08:13
[2017-06-03 08:37] VITALS: BP 145/65; PULSE 84; RESP 20; TEMP 98.9; O2SAT 94
[2017-06-03] MEDS: FLUTICASONE PROPIONATE 50 MCG/ACT 16 GM NASAL SPRAY EACH NARE SCH (09:15)
[2017-06-03] MEDS: SODIUM CHLORIDE 0.9% FLUSH 10 ML FLUSH IV FLUSH SCH ×2 (09:16→20:25)
[2017-06-03] MEDS: PANTOPRAZOLE SOD 20 MG DELAYED RELEASE TAB PO SCH (09:16)
[2017-06-03] MEDS: SERTRALINE HCL 100 MG TAB PO SCH (09:16)
[2017-06-03] MEDS: LOSARTAN 50 MG TAB PO SCH (09:16)
[2017-06-03] MEDS: DOCUSATE SODIUM 50 MG/SENNA 8.6 MG TAB PO SCH ×2 (09:16→20:24)
[2017-06-03] MEDS: ASPIRIN 325 MG TAB PO SCH (09:16)
[2017-06-03] MEDS: traMADol HCL 50 MG TAB PO PRN ×2 (09:20→17:36)
[2017-06-03] MEDS ORDERED: VANCOMYCIN 1,000 MG/NS 250 ML IV ONE ×4 (10:30→12:00)
[2017-06-03 10:55] LABS: BICARBONATE 26.5 MEQ/L (21.0-32.0); CALCIUM 8.7 MG/DL (8.5-10.1); CREATININE 1.3 MG/DL (0.60-1.30)
[2017-06-03 11:49] VITALS: BP 134/64; PULSE 76; RESP 20; TEMP 98.8; O2SAT 92
[2017-06-03] MEDS: ONDANSETRON HCL 4 MG/2 ML VIAL IVP PRN (15:27)
[2017-06-03 16:12] VITALS: BP 108/55; PULSE 83; RESP 20; TEMP 98.9; O2SAT 92
[2017-06-03 20:15] VITALS: BP 159/67; PULSE 87; RESP 18; TEMP 97.8; O2SAT 94
[2017-06-03] MEDS: ATORVASTATIN 10 MG TAB PO SCH (20:24)
[2017-06-03] MEDS: PRAMIPEXOLE DIHYDROCHLORIDE 1 MG TAB PO SCH (20:25)
[2017-06-03] MEDS: TAMSULOSIN HCL 0.4 MG CAP PO SCH (20:25)
[2017-06-03] MEDS: MORPHINE SULFATE 2 MG/ML INJ IV PUSH PRN (20:26)
[2017-06-03] MEDS ORDERED: PHARMACY ORDERED LAB ONE (20:45)
[2017-06-04] MEDS: traMADol HCL 50 MG TAB PO PRN ×5 (00:01→23:07)
[2017-06-04 00:38] VITALS: BP 122/60; PULSE 77; RESP 18; TEMP 97.9; O2SAT 94
[2017-06-04] MEDS: PIPERACIL-TAZO 3.375 GM PREMIX 50 ML IV SCH ×5 (04:59→23:07)
[2017-06-04 05:24] VITALS: BP 132/60; PULSE 85; RESP 18; TEMP 98.1; O2SAT 94
[2017-06-04] MEDS: HEPARIN SODIUM - SQ 10,000 UNITS/ML VIAL SQ SCH ×2 (05:32→17:33)
--- NOTE | 2017-06-04 08:06 | HHI.PR ---
Subjective Remarks in no acute distress. complaining of pain to the right foot. no fever. no new complaints. Objective Vitals Vital Signs Date Time Temp Pulse Resp B/P (MAP) Pulse Ox O2 Delivery O2 Flow Rate FiO2 06/04/17 05:24 98.1 85 18 132/60 (84) 94 06/04/17 00:38 97.9 77 18 122/60 (80) 94 06/03/17 20:15 97.8 87 18 159/67 (97) 94 06/03/17 18:36 20 06/03/17 16:12 98.9 83 20 108/55 (72) 92 06/03/17 11:49 98.8 76 20 134/64 (87) 92 06/03/17 08:37 98.9 84 20 145/65 (91) 94 I/O 06/03/17 06/03/17 06/03/17 06/04/17 06/04/17 06/04/17 07:00 15:00 23:00 07:00 15:00 23:00 Intake Total 950 ml 300 ml 50 ml 240 ml Output Total 850 ml Balance 100 ml 300 ml 50 ml 240 ml Intake Oral 850 ml 240 ml IV Total 100 ml 300 ml 50 ml Output Urine Total 850 ml # Voids 2 6 # Bowel Movements 0 Result Diagram: 06/01/17 1435 06/03/17 1006 Imaging Last Impressions Foot X-Ray 06/02/17 0000 Signed Impressions: Service Date/Time: Friday, June 02, 2017 19:51 - CONCLUSION: 1. No acute fracture or dislocation. 2. Joint space narrowing involving the first and second metatarsophalangeal joints and the first interphalangeal joint. 3. Achilles calcaneal spurring. 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 The popliteal artery below this reconstitutes and appears to be a satisfactory target vessel with intact three-vessel calf runoff thereafter noted. 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 Leo Maher MD Objective Remarks GENERAL: This is a well-nourished, well-developed patient, in no apparent distress. CARDIOVASCULAR: Regular rate and regular rhythm without murmurs, gallops, or rubs. RESPIRATORY: Clear to auscultation. Breath sounds equal bilaterally. No wheezes , rales, or rhonchi. GASTROINTESTINAL: Abdomen soft, non-tender, nondistended. Normal, active bowel sounds MUSCULOSKELETAL: cyanotic right fourth toe . NEURO: Alert & Oriented x4 to person, place, time, situation. Moves all ext x4 Medications and IVs Inpatient Medications Acetaminophen (Tylenol) 650 mg Q6H PRN PO PAIN SCALE 1 TO 2; Start 06/01/17 at 17:00; Stop 06/02/17 at 15:10; Status DC Acetaminophen/ Hydrocodone Bitart ([place] 5-325 Mg) 1 tab Q4H PRN PO PAIN SCALE 3 TO 5; Start 06/01/17 at 17:00; Stop 06/01/17 at 23:42; Status DC Acetaminophen/ Hydrocodone Bitart ([place] 7.5-325 Mg) 1 tab Q4H PRN PO PAIN SCALE 6 TO 10 Last administered on 06/01/17at 18:30; Start 06/01/17 at 17:00; Stop 06/01/17 at 23:42; Status DC Alprazolam (Xanax) 0.5 mg BID PRN PO ANXIETY Last administered on 06/02/17at 20: 26; Start 06/02/17 at 04:15 Amlodipine Besylate (Norvasc) 10 mg DAILY PO Last administered on 06/03/17at 09: 16; Start 06/02/17 at 09:00 Aspirin (Aspirin) 325 mg DAILY PO Last administered on 06/03/17at 09:16; Start at 09:00 Aspirin (Ecotrin Ec) 81 mg DAILY PO ; Start 06/02/17 at 09:00; Stop 06/02/17 at 09 :00; Status DC Atorvastatin Calcium (Lipitor) 10 mg HS PO Last administered on 06/03/17at 20:24 ; Start 06/02/17 at 04:30 Bisacodyl (Dulcolax Supp) 10 mg DAILY PRN RECTAL SEVERE CONSITIPATION; Start at 17:00 Clonidine (Catapres) 0.1 mg Q6H PRN PO SBP> OR = 180, DBP> OR = 100; Start 06/02 at 04:15 Dextrose (D50w (Vial) Inj) 50 ml UNSCH PRN IV PUSH HYPOGLYCEMIA-SEE COMMENTS; Start 06/02/17 at 08:15 Diphenhydramine HCl (Benadryl Inj) 25 mg ONCE ONCE IV PUSH Last administered on 06/02/17at 15:09; Start 06/02/17 at 15:00; Stop 06/02/17 at 15:03; Status DC Diphenhydramine HCl (Benadryl) 25 mg Q6H PRN PO ITCHING Last administered on 06/02/17at 19:29; Start 06/02/17 at 21:00 Fluticasone Propionate (Flonase Rob Spr) 2 spray DAILY EACH NARE Last administered on 06/03/17at 09:15; Start 06/02/17 at 09:00 Glucagon (Glucagon Inj) 1 mg UNSCH PRN OTHER HYPOGLYCEMIA-SEE COMMENTS; Start 06/02/17 at 08:15 Heparin Sodium (Porcine) (Heparin Inj) 5,000 units Q12H SQ Last administered on 06/04/17at 05:32; Start 06/01/17 at 18:00 Influenza Virus Vaccine (Flu (Quadrivalent) Vaccine Inj) 0.5 ml ONCE ONCE IM ; Start 06/02/17 at 10:00; Stop 06/02/17 at 10:01; Status DC Insulin Aspart (NovoLOG SUPPLEMENTAL SCALE) 1 ACHS SLIDING SCALE SQ Last administered on 06/03/17at 17:32; Start 06/02/17 at 12:00 Lactulose (Lactulose Liq) 30 ml DAILY PRN PO SEVERE CONSITIPATION; Start at 17:00 Losartan Potassium (Cozaar) 100 mg DAILY PO Last administered on 06/03/17at 09:16 ; Start 06/02/17 at 09:00 Magnesium Hydroxide (Milk Of Magnesia Liq) 30 ml Q12H PRN PO Mild constipation ; Start 06/01/17 at 17:00 Miscellaneous Information SPECIFIC LAB TO BE ZURDO... ONCE ONCE .XX ; Start at 20:45; Stop 06/03/17 at 20:46; Status DC Morphine Sulfate (Morphine Inj) 2 mg Q3H PRN IV PUSH breakthrough Last administered on 06/03/17 20:26; Start 06/02/17 at 04:45 Naloxone HCl (Narcan Inj) 0.4 mg UNSCH PRN IV PUSH SEE LABEL COMMENTS; Start at 17:00 Ondansetron HCl (Zofran Inj) 4 mg Q6H PRN IVP NAUSEA OR VOMITING Last administered on 06/03/17 15:27; Start 06/01/17 at 17:00 Oxycodone/ Acetaminophen (Percocet 5-325 Mg) 1 tab Q6H PRN PO pain 1-5; Start 06/01/17 at 23:45; Stop 06/02/17 at 15:00; Status DC Oxycodone/ Acetaminophen (Percocet 10-325 Mg) 1 tab Q6H PRN PO pain 6-10 Last administered on 06/02/17 12:24; Start 06/01/17 at 23:45; Stop 06/02/17 at 15:00; Status DC Pantoprazole Sodium (Protonix) 20 mg DAILY PO Last administered on 06/03/17 09: 16; Start 06/02/17 at 09:00 Pharmacy Profile Note 0 ml @ 0 mls/hr UNSCH OTHER ; Start 06/01/17 at 17:00 Piperacillin Sod/ Tazobactam Sod 50 ml @ 100 mls/hr Q6H IV Last administered on 06/04/17 04:59; Start 06/01/17 at 18:00 Pramipexole Dihydrochloride (Mirapex) 1 mg HS PO Last administered on 06/03/17 20:25; Start 06/02/17 at 21:00 Senna/Docusate Sodium (Naila-Colace) 1 tab BID PO Last administered on 06/03/17 20:24; Start 06/01/17 at 21:00 Sennosides (Senokot) 17.2 mg Q12H PRN PO Moderate constipation; Start 06/01/17 at 17:00 Sertraline HCl (Zoloft) 150 mg DAILY PO Last administered on 06/03/17 09:16; Start 06/02/17 at 09:00 Sodium Chloride (NS Flush) 2 ml BID IV FLUSH Last administered on 06/03/17 20: 25; Start 06/01/17 at 21:00 Tamsulosin HCl (Flomax) 0.8 mg HS PO Last administered on 06/03/17at 20:25; Start 06/02/17 at 21:00 Tramadol HCl (Ultram) 50 mg Q6H PRN PO PAIN SCALE 1-10 Last administered on 06/04at 05:35; Start 06/03/17 at 18:15 Vancomycin HCl 1000 mg/Sodium Chloride 250 ml @ 250 mls/hr ONCE ONCE IV Last administered on 06/03/17at 12:24; Start 06/03/17 at 12:00; Stop 06/03/17 at 12:59; Status DC A/P Problem List: (1) Cellulitis ICD Code: L03.90 - Cellulitis, unspecified Status: Acute (2) PAD (peripheral artery disease) ICD Code: I73.9 - Peripheral vascular disease, unspecified (3) HTN (hypertension) ICD Code: I10 - Essential (primary) hypertension (4) Diabetes ICD Code: E11.9 - Type 2 diabetes mellitus without complications (5) Failure of outpatient treatment ICD Code: Z78.9 - Other specified health status Status: Acute Assessment and Plan A/P cellulitis of the right fourth toe. Failed outpatient therapy. Difficulty with healing likely due to poor vascularization. - Continue antibiotics with vancomycin and Zosyn. Monitor response -will deescalate the antibiotic regimen if the cultures remain negative. -vascular surgery consulted and plan for angiogram this week. - Podiatry consult appreciated- no interventions at this time. PAD (peripheral artery disease) Vascular surgery evaluated the patient and planning for angiogram on Monday. Continue aspirin, statin. continue with pain control; will increase ultram and monitor the response. HTN (hypertension) Resumed amlodipine and losartan. Monitor BP and titrate antihypertensives as needed. Diabetes Diet controlled. continue SSI. DVT prophylaxis with subq Heparin. Discharge Planning plan for angiogram this week. Problem Qualifiers (1) Cellulitis: Qualified Codes: L03.031 - Cellulitis of right toe Raquel Valenzuela MD Jun 04, 2017 08:06
[2017-06-04] MEDS: INSULIN ASPART SUPPLEMENTAL SCALE SQ SCH ×4 (08:23→21:00)
[2017-06-04] MEDS: FLUTICASONE PROPIONATE 50 MCG/ACT 16 GM NASAL SPRAY EACH NARE SCH (08:23)
[2017-06-04] MEDS: SERTRALINE HCL 100 MG TAB PO SCH (08:24)
[2017-06-04] MEDS: LOSARTAN 50 MG TAB PO SCH (08:24)
[2017-06-04] MEDS: PANTOPRAZOLE SOD 20 MG DELAYED RELEASE TAB PO SCH (08:24)
[2017-06-04] MEDS: ASPIRIN 325 MG TAB PO SCH (08:24)
[2017-06-04] MEDS: DOCUSATE SODIUM 50 MG/SENNA 8.6 MG TAB PO SCH ×2 (08:25→21:00)
[2017-06-04] MEDS: SODIUM CHLORIDE 0.9% FLUSH 10 ML FLUSH IV FLUSH SCH ×2 (08:25→22:13)
[2017-06-04 08:46] VITALS: BP 131/61; PULSE 78; RESP 18; TEMP 98.5; O2SAT 91
[2017-06-04] MEDS ORDERED: VANCOMYCIN INJ 1,250 MG in SODIUM CHLOR 0.9% 250 ML INJ 250 ML IV ONE (12:00)
[2017-06-04 12:43] VITALS: BP 114/58; PULSE 77; RESP 18; TEMP 98.8; O2SAT 90
[2017-06-04 16:37] VITALS: BP 139/61; PULSE 79; RESP 18; TEMP 98.3; O2SAT 92
[2017-06-04 21:03] VITALS: BP 165/72; PULSE 85; RESP 18; TEMP 97.6; O2SAT 95
[2017-06-04] MEDS: PRAMIPEXOLE DIHYDROCHLORIDE 1 MG TAB PO SCH (22:12)
[2017-06-04] MEDS: ATORVASTATIN 10 MG TAB PO SCH (22:12)
[2017-06-04] MEDS: TAMSULOSIN HCL 0.4 MG CAP PO SCH (22:12)
[2017-06-05 00:42] VITALS: BP 125/57; PULSE 76; RESP 18; TEMP 98.6; O2SAT 95
[2017-06-05 05:18] VITALS: BP 143/69; PULSE 81; RESP 18; TEMP 98; O2SAT 93
[2017-06-05] MEDS: HEPARIN SODIUM - SQ 10,000 UNITS/ML VIAL SQ SCH ×2 (06:00→17:23)
[2017-06-05] MEDS: PIPERACIL-TAZO 3.375 GM PREMIX 50 ML IV SCH ×3 (06:09→17:23)
[2017-06-05] MEDS: traMADol HCL 50 MG TAB PO PRN ×3 (06:11→20:33)
[2017-06-05] MEDS: ONDANSETRON HCL 4 MG/2 ML VIAL IVP PRN (06:15)
[2017-06-05 08:00] VITALS: BP 129/60; PULSE 69; RESP 16; TEMP 98.5; O2SAT 92
[2017-06-05] MEDS: PANTOPRAZOLE SOD 20 MG DELAYED RELEASE TAB PO SCH (08:36)
[2017-06-05] MEDS: ASPIRIN 325 MG TAB PO SCH (08:36)
[2017-06-05] MEDS: SERTRALINE HCL 100 MG TAB PO SCH (08:37)
[2017-06-05] MEDS: DOCUSATE SODIUM 50 MG/SENNA 8.6 MG TAB PO SCH ×2 (08:37→20:24)
[2017-06-05] MEDS: LOSARTAN 50 MG TAB PO SCH (08:37)
[2017-06-05] MEDS: SODIUM CHLORIDE 0.9% FLUSH 10 ML FLUSH IV FLUSH SCH ×2 (08:38→20:25)
[2017-06-05] MEDS: INSULIN ASPART SUPPLEMENTAL SCALE SQ SCH ×4 (08:38→20:22)
[2017-06-05] MEDS: FLUTICASONE PROPIONATE 50 MCG/ACT 16 GM NASAL SPRAY EACH NARE SCH (08:39)
--- NOTE | 2017-06-05 08:46 | HHI.PR ---
Subjective Remarks in no acute distress. resting comfortably. pain is fairly controlled. d/w the RN. Objective Vitals Vital Signs Date Time Temp Pulse Resp B/P (MAP) Pulse Ox O2 Delivery O2 Flow Rate FiO2 06/05/17 05:18 98.0 81 18 143/69 (93) 93 06/05/17 00:42 98.6 76 18 125/57 (79) 95 06/04/17 21:03 97.6 85 18 165/72 (103) 95 06/04/17 18:35 20 06/04/17 16:37 98.3 79 18 139/61 (87) 92 06/04/17 12:43 98.8 77 18 114/58 (76) 90 06/04/17 08:46 98.5 78 18 131/61 (84) 91 I/O 06/04/17 06/04/17 06/04/17 06/05/17 06/05/17 06/05/17 07:00 15:00 23:00 07:00 15:00 23:00 Intake Total 240 ml 792.5 ml 480 ml Balance 240 ml 792.5 ml 480 ml Intake Oral 240 ml 480 ml 480 ml IV Total 312.5 ml # Voids 6 3 5 Result Diagram: 06/01/17 1435 06/03/17 1006 Imaging Last Impressions Foot X-Ray 06/02/17 0000 Signed Impressions: Service Date/Time: Friday, June 02, 2017 19:51 - CONCLUSION: 1. No acute fracture or dislocation. 2. Joint space narrowing involving the first and second metatarsophalangeal joints and the first interphalangeal joint. 3. Achilles calcaneal spurring. 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 The popliteal artery below this reconstitutes and appears to be a satisfactory target vessel with intact three-vessel calf runoff thereafter noted. 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 Leo Maher MD Objective Remarks GENERAL: This is a well-nourished, well-developed patient, in no apparent distress. CARDIOVASCULAR: Regular rate and regular rhythm without murmurs, gallops, or rubs. RESPIRATORY: Clear to auscultation. Breath sounds equal bilaterally. No wheezes , rales, or rhonchi. GASTROINTESTINAL: Abdomen soft, non-tender, nondistended. Normal, active bowel sounds MUSCULOSKELETAL: cyanotic right fourth toe . NEURO: Alert & Oriented x4 to person, place, time, situation. Moves all ext x4 Medications and IVs Inpatient Medications Acetaminophen (Tylenol) 650 mg Q6H PRN PO PAIN SCALE 1 TO 2; Start 06/01/17 at 17:00; Stop 06/02/17 at 15:10; Status DC Acetaminophen/ Hydrocodone Bitart ([place] 5-325 Mg) 1 tab Q4H PRN PO PAIN SCALE 3 TO 5; Start 06/01/17 at 17:00; Stop 06/01/17 at 23:42; Status DC Acetaminophen/ Hydrocodone Bitart ([place] 7.5-325 Mg) 1 tab Q4H PRN PO PAIN SCALE 6 TO 10 Last administered on 06/01/17at 18:30; Start 06/01/17 at 17:00; Stop 06/01/17 at 23:42; Status DC Alprazolam (Xanax) 0.5 mg BID PRN PO ANXIETY Last administered on 06/02/17at 20: 26; Start 06/02/17 at 04:15 Amlodipine Besylate (Norvasc) 10 mg DAILY PO Last administered on 06/05/17at 08: 37; Start 06/02/17 at 09:00 Aspirin (Aspirin) 325 mg DAILY PO Last administered on 06/05/17at 08:36; Start at 09:00 Aspirin (Ecotrin Ec) 81 mg DAILY PO ; Start 06/02/17 at 09:00; Stop 06/02/17 at 09 :00; Status DC Atorvastatin Calcium (Lipitor) 10 mg HS PO Last administered on 06/04/17at 22:12 ; Start 06/02/17 at 04:30 Bisacodyl (Dulcolax Supp) 10 mg DAILY PRN RECTAL SEVERE CONSITIPATION; Start at 17:00 Clonidine (Catapres) 0.1 mg Q6H PRN PO SBP> OR = 180, DBP> OR = 100; Start 06/02 at 04:15 Dextrose (D50w (Vial) Inj) 50 ml UNSCH PRN IV PUSH HYPOGLYCEMIA-SEE COMMENTS; Start 06/02/17 at 08:15 Diphenhydramine HCl (Benadryl Inj) 25 mg ONCE ONCE IV PUSH Last administered on 06/02/17at 15:09; Start 06/02/17 at 15:00; Stop 06/02/17 at 15:03; Status DC Diphenhydramine HCl (Benadryl) 25 mg Q6H PRN PO ITCHING Last administered on 06/02/17at 19:29; Start 06/02/17 at 21:00 Fluticasone Propionate (Flonase Rob Spr) 2 spray DAILY EACH NARE Last administered on 06/05/17at 08:39; Start 06/02/17 at 09:00 Glucagon (Glucagon Inj) 1 mg UNSCH PRN OTHER HYPOGLYCEMIA-SEE COMMENTS; Start 06/02/17 at 08:15 Heparin Sodium (Porcine) (Heparin Inj) 5,000 units Q12H SQ Last administered on 06/05/17at 06:00; Start 06/01/17 at 18:00 Influenza Virus Vaccine (Flu (Quadrivalent) Vaccine Inj) 0.5 ml ONCE ONCE IM ; Start 06/02/17 at 10:00; Stop 06/02/17 at 10:01; Status DC Insulin Aspart (NovoLOG SUPPLEMENTAL SCALE) 1 ACHS SLIDING SCALE SQ Last administered on 06/04/17at 08:23; Start 06/02/17 at 12:00 Lactulose (Lactulose Liq) 30 ml DAILY PRN PO SEVERE CONSITIPATION; Start at 17:00 Losartan Potassium (Cozaar) 100 mg DAILY PO Last administered on 06/05/17at 08:37 ; Start 06/02/17 at 09:00 Magnesium Hydroxide (Milk Of Magnesia Liq) 30 ml Q12H PRN PO Mild constipation ; Start 06/01/17 at 17:00 Miscellaneous Information SPECIFIC LAB TO BE ZURDO... ONCE ONCE .XX ; Start at 20:45; Stop 06/03/17 at 20:46; Status DC Morphine Sulfate (Morphine Inj) 2 mg Q3H PRN IV PUSH breakthrough Last administered on 06/03/17at 20:26; Start 06/02/17 at 04:45 Naloxone HCl (Narcan Inj) 0.4 mg UNSCH PRN IV PUSH SEE LABEL COMMENTS; Start at 17:00 Ondansetron HCl (Zofran Inj) 4 mg Q6H PRN IVP NAUSEA OR VOMITING Last administered on 06/05/17 06:15; Start 06/01/17 at 17:00 Oxycodone/ Acetaminophen (Percocet 5-325 Mg) 1 tab Q6H PRN PO pain 1-5; Start 06/01/17 at 23:45; Stop 06/02/17 at 15:00; Status DC Oxycodone/ Acetaminophen (Percocet 10-325 Mg) 1 tab Q6H PRN PO pain 6-10 Last administered on 06/02/17at 12:24; Start 06/01/17 at 23:45; Stop 06/02/17 at 15:00; Status DC Pantoprazole Sodium (Protonix) 20 mg DAILY PO Last administered on 06/05/17 08: 36; Start 06/02/17 at 09:00 Pharmacy Profile Note 0 ml @ 0 mls/hr UNSCH OTHER ; Start 06/01/17 at 17:00 Piperacillin Sod/ Tazobactam Sod 50 ml @ 100 mls/hr Q6H IV Last administered on 06/05/17 06:09; Start 06/01/17 at 18:00 Pramipexole Dihydrochloride (Mirapex) 1 mg HS PO Last administered on 06/04/17at 22:12; Start 06/02/17 at 21:00 Senna/Docusate Sodium (Naila-Colace) 1 tab BID PO Last administered on 06/05/17 08:37; Start 06/01/17 at 21:00 Sennosides (Senokot) 17.2 mg Q12H PRN PO Moderate constipation; Start 06/01/17 at 17:00 Sertraline HCl (Zoloft) 150 mg DAILY PO Last administered on 06/05/17 08:37; Start 06/02/17 at 09:00 Sodium Chloride (NS Flush) 2 ml BID IV FLUSH Last administered on 06/05/17 08: 38; Start 06/01/17 at 21:00 Tamsulosin HCl (Flomax) 0.8 mg HS PO Last administered on 06/04/17at 22:12; Start 06/02/17 at 21:00 Tramadol HCl (Ultram) 100 mg Q6H PRN PO PAIN SCALE 1-10 Last administered on 06/05/17at 06:11; Start 06/04/17 at 12:15 Vancomycin HCl 1000 mg/Sodium Chloride 250 ml @ 250 mls/hr ONCE ONCE IV Last administered on 06/03/17at 12:24; Start 06/03/17 at 12:00; Stop 06/03/17 at 12:59; Status DC Vancomycin HCl 1250 mg/Sodium Chloride 262.5 ml @ 250 mls/hr ONCE ONCE IV Last administered on 06/04/17at 12:23; Start 06/04/17 at 12:00; Stop 06/04/17 at 13: 02; Status DC A/P Problem List: (1) Cellulitis ICD Code: L03.90 - Cellulitis, unspecified Status: Acute (2) PAD (peripheral artery disease) ICD Code: I73.9 - Peripheral vascular disease, unspecified (3) HTN (hypertension) ICD Code: I10 - Essential (primary) hypertension (4) Diabetes ICD Code: E11.9 - Type 2 diabetes mellitus without complications (5) Failure of outpatient treatment ICD Code: Z78.9 - Other specified health status Status: Acute Assessment and Plan A/P cellulitis of the right fourth toe. Failed outpatient therapy. Difficulty with healing likely due to poor vascularization. - Continue Zosyn. stop Vancomycin- Monitor response -vascular surgery consulted and plan for angiogram this week. - Podiatry consult appreciated- no interventions at this time. PAD (peripheral artery disease) Vascular surgery evaluated the patient and planning for angiogram on Monday. Continue aspirin, statin. continue with pain control. HTN (hypertension) Resumed amlodipine and losartan. Monitor BP and titrate antihypertensives as needed. Diabetes Diet controlled. continue SSI. DVT prophylaxis with subq Heparin. Discharge Planning plan for angiogram this week. Problem Qualifiers (1) Cellulitis: Qualified Codes: L03.031 - Cellulitis of right toe Raquel Valenzuela MD Jun 05, 2017 08:46
[2017-06-05] MEDS: SODIUM CHLOR 0.9% 1000 ML INJ 1,000 ML IV SCH (10:26)
[2017-06-05 12:00] VITALS: BP 120/60; PULSE 69; RESP 16; TEMP 98.6; O2SAT 91
[2017-06-05 16:00] VITALS: BP 149/67; PULSE 77; RESP 16; TEMP 98; O2SAT 96
[2017-06-05 20:00] VITALS: BP 142/65; PULSE 69; RESP 18; TEMP 98; O2SAT 97
[2017-06-05] MEDS: PRAMIPEXOLE DIHYDROCHLORIDE 1 MG TAB PO SCH (20:23)
[2017-06-05] MEDS: TAMSULOSIN HCL 0.4 MG CAP PO SCH (20:24)
[2017-06-05] MEDS: ATORVASTATIN 10 MG TAB PO SCH (20:24)
[2017-06-06] VITALS (7 sets, daily range): BP systolic 133–169; BP diastolic 58–74; PULSE 65–78; RESP 18–20; TEMP 97.4–98.1; O2SAT 91–95
[2017-06-06] MEDS: PIPERACIL-TAZO 3.375 GM PREMIX 50 ML IV SCH ×4 (00:22→18:32)
[2017-06-06] MEDS: traMADol HCL 50 MG TAB PO PRN (03:25)
[2017-06-06] MEDS: SODIUM CHLOR 0.9% 1000 ML INJ 1,000 ML IV SCH (05:24)
[2017-06-06] MEDS: ALPRAZolam 0.5 MG TAB PO PRN ×2 (05:25→15:49)
[2017-06-06] MEDS: HEPARIN SODIUM - SQ 10,000 UNITS/ML VIAL SQ SCH ×2 (05:30→18:32)
[2017-06-06] MEDS ORDERED: INSULIN HUMAN REGULAR 1,000 UNITS/10 ML VIAL SQ PRN (07:30)
[2017-06-06] MEDS ORDERED: METOPROLOL TARTRATE 25 MG TAB PO PRN (07:30)
[2017-06-06] MEDS ORDERED: SODIUM CHLORID 0.9% 500 ML IV PRN (07:30)
[2017-06-06] MEDS ORDERED: POVIDONE IODINE 5% (ANTISEPSIS KIT) 4 APPLICATIONS EACH NARE PRN (07:30)
[2017-06-06] MEDS ORDERED: CHLORHEXIDINE GLUCONATE 2 % 1 PACK (2 CLOTHS) TOPICAL PRN (07:30)
[2017-06-06] MEDS ORDERED: HEPARIN SODIUM - IV 10,000 UNITS/10 ML VIAL ONE (07:32)
[2017-06-06] MEDS ORDERED: PROTAMINE SULFATE 50 MG/5 ML VIAL ONE (07:32)
[2017-06-06] MEDS ORDERED: HEPARIN-NS/PF INJ 1,000 ML ONE (07:33)
[2017-06-06] MEDS: INSULIN ASPART SUPPLEMENTAL SCALE SQ SCH ×4 (08:00→21:00)
--- NOTE | 2017-06-06 08:19 | HHI.PR ---
Subjective Remarks in no acute distress. pain to the right foot is fairly controlled. no fever. awaiting angiogram. Objective Vitals Vital Signs Date Time Temp Pulse Resp B/P (MAP) Pulse Ox O2 Delivery O2 Flow Rate FiO2 06/05/17 20:00 98.0 69 18 142/65 (90) 97 06/05/17 16:00 98.0 77 16 149/67 (94) 96 06/05/17 12:00 98.6 69 16 120/60 (80) 91 I/O 06/05/17 06/05/17 06/05/17 06/06/17 06/06/17 06/06/17 07:00 15:00 23:00 07:00 15:00 23:00 Intake Total 480 ml Balance 480 ml Intake Oral 480 ml # Voids 5 Result Diagram: 06/03/17 1006 Imaging Last Impressions Foot X-Ray 06/02/17 0000 Signed Impressions: Service Date/Time: Friday, June 02, 2017 19:51 - CONCLUSION: 1. No acute fracture or dislocation. 2. Joint space narrowing involving the first and second metatarsophalangeal joints and the first interphalangeal joint. 3. Achilles calcaneal spurring. 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 The popliteal artery below this reconstitutes and appears to be a satisfactory target vessel with intact three-vessel calf runoff thereafter noted. 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 Leo Maher MD Objective Remarks GENERAL: This is a well-nourished, well-developed patient, in no apparent distress. CARDIOVASCULAR: Regular rate and regular rhythm without murmurs, gallops, or rubs. RESPIRATORY: Clear to auscultation. Breath sounds equal bilaterally. No wheezes , rales, or rhonchi. GASTROINTESTINAL: Abdomen soft, non-tender, nondistended. Normal, active bowel sounds MUSCULOSKELETAL: cyanotic right fourth toe . NEURO: Alert & Oriented x4 to person, place, time, situation. Moves all ext x4 Medications and IVs Inpatient Medications Acetaminophen (Tylenol) 650 mg Q6H PRN PO PAIN SCALE 1 TO 2; Start 06/01/17 at 17:00; Stop 06/02/17 at 15:10; Status DC Acetaminophen/ Hydrocodone Bitart ([place] 5-325 Mg) 1 tab Q4H PRN PO PAIN SCALE 3 TO 5; Start 06/01/17 at 17:00; Stop 06/01/17 at 23:42; Status DC Acetaminophen/ Hydrocodone Bitart ([place] 7.5-325 Mg) 1 tab Q4H PRN PO PAIN SCALE 6 TO 10 Last administered on 06/01/17at 18:30; Start 06/01/17 at 17:00; Stop 06/01/17 at 23:42; Status DC Alprazolam (Xanax) 0.5 mg BID PRN PO ANXIETY Last administered on 06/06/17at 05: 25; Start 06/02/17 at 04:15 Amlodipine Besylate (Norvasc) 10 mg DAILY PO Last administered on 06/05/17at 08: 37; Start 06/02/17 at 09:00 Aspirin (Aspirin) 325 mg DAILY PO Last administered on 06/05/17at 08:36; Start at 09:00 Aspirin (Ecotrin Ec) 81 mg DAILY PO ; Start 06/02/17 at 09:00; Stop 06/02/17 at 09 :00; Status DC Atorvastatin Calcium (Lipitor) 10 mg HS PO Last administered on 06/05/17at 20:24 ; Start 06/02/17 at 04:30 Bisacodyl (Dulcolax Supp) 10 mg DAILY PRN RECTAL SEVERE CONSITIPATION; Start at 17:00 Chlorhexidine Gluconate (Chlorhexidine 2% Cloth) 3 pack SENIOR JAVA SOFTWARE ENGINEER PRN TOPICAL SEE LABEL COMMENTS; Start 06/06/17 at 07:30; Stop 06/09/17 at 07:29 Clonidine (Catapres) 0.1 mg Q6H PRN PO SBP> OR = 180, DBP> OR = 100; Start 06/02 at 04:15 Dextrose (D50w (Vial) Inj) 50 ml UNSCH PRN IV PUSH HYPOGLYCEMIA-SEE COMMENTS; Start 06/02/17 at 08:15 Diphenhydramine HCl (Benadryl Inj) 25 mg ONCE ONCE IV PUSH Last administered on 06/02/17at 15:09; Start 06/02/17 at 15:00; Stop 06/02/17 at 15:03; Status DC Diphenhydramine HCl (Benadryl) 25 mg Q6H PRN PO ITCHING Last administered on 06/02/17at 19:29; Start 06/02/17 at 21:00 Fluticasone Propionate (Flonase Rob Spr) 2 spray DAILY EACH NARE Last administered on 06/05/17at 08:39; Start 06/02/17 at 09:00 Glucagon (Glucagon Inj) 1 mg UNSCH PRN OTHER HYPOGLYCEMIA-SEE COMMENTS; Start 06/02/17 at 08:15 Heparin Sodium (Porcine) (Heparin Inj) 5,000 units Q12H SQ Last administered on 06/05/17at 17:23; Start 06/01/17 at 18:00 Influenza Virus Vaccine (Flu (Quadrivalent) Vaccine Inj) 0.5 ml ONCE ONCE IM ; Start 06/02/17 at 10:00; Stop 06/02/17 at 10:01; Status DC Insulin Aspart (NovoLOG SUPPLEMENTAL SCALE) 1 ACHS SLIDING SCALE SQ Last administered on 06/04/17at 08:23; Start 06/02/17 at 12:00 Insulin Human Regular (NovoLIN R INJ) See Protocol Table ... SENIOR JAVA SOFTWARE ENGINEER PRN SQ SEE PROTOCOL TABLE; Start 06/06/17 at 07:30; Stop 06/09/17 at 07:29 Lactated Ringer's 1,000 ml @ 30 mls/hr Q24H PRN IV SEE LABEL COMMENTS; Start at 07:30; Stop 06/09/17 at 07:29 Lactulose (Lactulose Liq) 30 ml DAILY PRN PO SEVERE CONSITIPATION; Start at 17:00 Losartan Potassium (Cozaar) 100 mg DAILY PO Last administered on 06/05/17at 08:37 ; Start 06/02/17 at 09:00 Magnesium Hydroxide (Milk Of Magnesia Liq) 30 ml Q12H PRN PO Mild constipation ; Start 06/01/17 at 17:00 Metoprolol Tartrate (Lopressor) 25 mg SENIOR JAVA SOFTWARE ENGINEER PRN PO SEE LABEL COMMENTS; Start 06/06/17 at 07:30; Stop 06/09/17 at 07:29 Miscellaneous Information SPECIFIC LAB TO BE ... ONCE ONCE .XX ; Start at 20:45; Stop 06/03/17 at 20:46; Status DC Morphine Sulfate (Morphine Inj) 2 mg Q3H PRN IV PUSH breakthrough Last administered on 06/03/17at 20:26; Start 06/02/17 at 04:45 Naloxone HCl (Narcan Inj) 0.4 mg UNSCH PRN IV PUSH SEE LABEL COMMENTS; Start at 17:00 Ondansetron HCl (Zofran Inj) 4 mg Q6H PRN IVP NAUSEA OR VOMITING Last administered on 06/05/17at 06:15; Start 06/01/17 at 17:00 Oxycodone/ Acetaminophen (Percocet 5-325 Mg) 1 tab Q6H PRN PO pain 1-5; Start 06/01/17 at 23:45; Stop 06/02/17 at 15:00; Status DC Oxycodone/ Acetaminophen (Percocet 10-325 Mg) 1 tab Q6H PRN PO pain 6-10 Last administered on 06/02/17at 12:24; Start 06/01/17 at 23:45; Stop 06/02/17 at 15:00; Status DC Pantoprazole Sodium (Protonix) 20 mg DAILY PO Last administered on 06/05/17at 08: 36; Start 06/02/17 at 09:00 Pharmacy Profile Note 0 ml @ 0 mls/hr UNSCH OTHER ; Start 06/01/17 at 17:00; Stop 06/05/17 at 08:45; Status DC Piperacillin Sod/ Tazobactam Sod 50 ml @ 100 mls/hr Q6H IV Last administered on 06/06/17at 05:24; Start 06/01/17 at 18:00 Povidone Iodine (Betadine 5% Antisepsis Kit) 1 applic SENIOR JAVA SOFTWARE ENGINEER PRN EACH NARE SEE LABEL COMMENTS; Start 06/06/17 at 07:30; Stop 06/09/17 at 07:29 Pramipexole Dihydrochloride (Mirapex) 1 mg HS PO Last administered on 06/05/17at 20:23; Start 06/02/17 at 21:00 Senna/Docusate Sodium (Naila-Colace) 1 tab BID PO Last administered on 06/05/17at 08:37; Start 06/01/17 at 21:00 Sennosides (Senokot) 17.2 mg Q12H PRN PO Moderate constipation; Start 06/01/17 at 17:00 Sertraline HCl (Zoloft) 150 mg DAILY PO Last administered on 06/05/17at 08:37; Start 06/02/17 at 09:00 Sodium Chloride 500 ml @ 30 mls/hr [id number] PRN IV SEE LABEL COMMENTS; Start 06/06/17 at 07:30; Stop 06/09/17 at 07:29 Sodium Chloride (NS Flush) 2 ml BID IV FLUSH Last administered on 06/05/17at 08: 38; Start 06/01/17 at 21:00 Tamsulosin HCl (Flomax) 0.8 mg HS PO Last administered on 06/05/17at 20:24; Start 06/02/17 at 21:00 Tramadol HCl (Ultram) 100 mg Q6H PRN PO PAIN SCALE 1-10 Last administered on 06/06/17at 03:25; Start 06/04/17 at 12:15 Vancomycin HCl 1000 mg/Sodium Chloride 250 ml @ 250 mls/hr ONCE ONCE IV Last administered on 06/03/17at 12:24; Start 06/03/17 at 12:00; Stop 06/03/17 at 12:59; Status DC Vancomycin HCl 1250 mg/Sodium Chloride 262.5 ml @ 250 mls/hr ONCE ONCE IV Last administered on 06/04/17at 12:23; Start 06/04/17 at 12:00; Stop 06/04/17 at 13: 02; Status DC A/P Problem List: (1) Cellulitis ICD Code: L03.90 - Cellulitis, unspecified Status: Acute (2) PAD (peripheral artery disease) ICD Code: I73.9 - Peripheral vascular disease, unspecified (3) HTN (hypertension) ICD Code: I10 - Essential (primary) hypertension (4) Diabetes ICD Code: E11.9 - Type 2 diabetes mellitus without complications (5) Failure of outpatient treatment ICD Code: Z78.9 - Other specified health status Status: Acute Assessment and Plan A/P cellulitis of the right fourth toe. Failed outpatient therapy. Difficulty with healing likely due to poor vascularization. - Continue Zosyn. stopped Vancomycin- -vascular surgery consulted and plan for angiogram today. - Podiatry consult appreciated- no interventions at this time. PAD (peripheral artery disease) Vascular surgery evaluated the patient and planning for angiogram today. Continue aspirin, statin. continue with pain control. HTN (hypertension) Resumed amlodipine and losartan. Monitor BP and titrate antihypertensives as needed. Diabetes Diet controlled. continue SSI. DVT prophylaxis with subq Heparin. Discharge Planning awaiting angiogram today. Problem Qualifiers (1) Cellulitis: Qualified Codes: L03.031 - Cellulitis of right toe Raquel Valenzuela MD Jun 06, 2017 08:19
[2017-06-06] MEDS: LOSARTAN 50 MG TAB PO SCH (09:27)
[2017-06-06] MEDS: PANTOPRAZOLE SOD 20 MG DELAYED RELEASE TAB PO SCH (09:28)
[2017-06-06] MEDS: SERTRALINE HCL 100 MG TAB PO SCH (09:29)
[2017-06-06] MEDS: ASPIRIN 325 MG TAB PO SCH (09:29)
[2017-06-06] MEDS: DOCUSATE SODIUM 50 MG/SENNA 8.6 MG TAB PO SCH ×2 (09:30→21:00)
[2017-06-06] MEDS: SODIUM CHLORIDE 0.9% FLUSH 10 ML FLUSH IV FLUSH SCH ×2 (09:30→21:00)
[2017-06-06] MEDS: DEXT 5%-NACL 0.9% 1000 ML INJ 1,000 ML IV SCH (09:35)
[2017-06-06] MEDS: FLUTICASONE PROPIONATE 50 MCG/ACT 16 GM NASAL SPRAY EACH NARE SCH (09:35)
[2017-06-06] MEDS: LACTATED RINGER'S 1000 ML IV PRN (16:28)
[2017-06-06] MEDS ORDERED: ceFAZolin 2 GM PREMIX 50 ML ONE (16:43)
[2017-06-06] MEDS ORDERED: IOHEXOL 300 INJ 50 ML IV ONE (17:11)
--- NOTE | 2017-06-06 18:32 | HHI.PR ---
cc: Vishal Loaiza MD Immediate Post Op Note Procedure Date: Jun 06, 2017 Pre Op Diagnosis: PAD, R LE tissue loss Post Op Diagnosis: PAD, R LE tissue loss Surgeon: Vishal Loaiza Dye Can Operator(s): none Procedure: Aortogram w/ R LE angiogram R SFA SURGICAL CORSETIER/stent L CULINARY SPECIALIST angioseal Findings: totally occluded SFA, calcified successful recanalization and stent Additional Information: palpable DP at conclusion of case Complications: none Specimen(s) removed: none Estimated blood loss: 10mL Anesthesia: General Drains: None Patient to: PACU Patient Condition: Good Implant/Devices: SEE IMPLANT LOG (if applicable) Date/Time of Procedure: SEE SURGICAL CARE RECORD Vishal Loaiza MD Jun 06, 2017 18:32
[2017-06-06] MEDS ORDERED: DO NOT ADM ANY ANTICOAGULANT DRUGS PRN (18:34)
[2017-06-06] MEDS ORDERED: CLOPIDOGREL 75 MG TAB PO ONE (19:45)
--- NOTE | 2017-06-06 23:10 | PD.POD ---
Subjective Podiatric Problems R #4 necrosis Past Med/Surg/Social History Social History Smoking Status: Former Smoker Objective Vital Signs Vital Signs Date Time Temp Pulse Resp B/P (MAP) Pulse Ox O2 Delivery O2 Flow Rate FiO2 06/06/17 22:30 21 06/06/17 21:00 97.6 78 20 148/67 (94) 92 06/06/17 19:33 98.1 78 20 150/67 (94) 96 Nasal Cannula 4 06/06/17 19:15 81 20 147/61 (89) 94 Nasal Cannula 4 06/06/17 19:00 85 20 148/66 (93) 95 Bi-Pap 50 06/06/17 18:45 80 20 142/66 (91) 97 Bi-Pap 50 06/06/17 18:35 93 50 06/06/17 18:33 97.8 96 20 139/62 (87) 91 Bi-Pap 50 06/06/17 16:27 98.0 74 18 169/74 (105) 92 06/06/17 12:39 98.1 74 18 133/61 (85) 91 06/06/17 08:32 97.8 65 18 142/58 (86) 93 06/06/17 04:00 97.5 78 18 147/69 (95) 95 06/06/17 00:00 97.4 78 18 135/61 (85) 93 Coded Allergies: hydrocodone (Verified Allergy, Mild, 06/02/17) Patient started having redness around the mouth, chills, and slight swelling of the tongue. amitriptyline (Verified Allergy, Unknown, B/P PROB, 06/01/17) ciprofloxacin (Verified Allergy, Unknown, 06/01/17) dexamethasone (Verified Allergy, Unknown, 06/01/17) fosinopril (Verified Allergy, Unknown, 06/01/17) gabapentin (Verified Allergy, Unknown, 06/01/17) sulindac (Verified Allergy, Unknown, 06/01/17) Assessment & Plan A/P R #4 gangrene Will assess for OR tomorrow early afternoon for amputation R 4th toe NPO after midnight Sam Tobar DPM Jun 06, 2017 23:10
[2017-06-07] VITALS (7 sets, daily range): BP systolic 142–170; BP diastolic 65–88; PULSE 70–76; RESP 17–20; TEMP 97.2–98.7; O2SAT 90–98
[2017-06-07] MEDS: PRAMIPEXOLE DIHYDROCHLORIDE 1 MG TAB PO SCH ×2 (00:15→20:07)
[2017-06-07] MEDS: TAMSULOSIN HCL 0.4 MG CAP PO SCH ×2 (00:15→20:08)
[2017-06-07] MEDS: traMADol HCL 50 MG TAB PO PRN ×3 (00:16→11:56)
[2017-06-07] MEDS: ATORVASTATIN 10 MG TAB PO SCH ×2 (00:17→20:08)
[2017-06-07] MEDS: PIPERACIL-TAZO 3.375 GM PREMIX 50 ML IV SCH ×4 (00:17→17:01)
[2017-06-07] MEDS: HEPARIN SODIUM - SQ 10,000 UNITS/ML VIAL SQ SCH ×2 (04:57→16:59)
[2017-06-07] MEDS: DEXT 5%-NACL 0.9% 1000 ML INJ 1,000 ML IV SCH (05:00)
--- NOTE | 2017-06-07 06:18 | MP ---
cc: Vishal Loaiza MD DATE OF OPERATION: 06/06/2017 PREOPERATIVE DIAGNOSIS: Right lower extremity tissue loss, peripheral arterial occlusive disease. POSTOPERATIVE DIAGNOSIS: Right lower extremity tissue loss, peripheral arterial occlusive disease. PROCEDURE: 1. Aortogram with right lower extremity angiograms. 2. Right SFA angioplasty and stent with 6-mm stent. 3. Left common femoral artery Angio-Seal. ATTENDING SURGEON: Vishal Loaiza MD ANESTHESIA: General. INDICATION: Mr. Norris is a 77-year-old gentleman with right lower extremity tissue loss, nonpalpable pulses and he was taken to the operating room for angiographic evaluation and potential treatment. There is no prior catheterization or imaging available for my review. DESCRIPTION OF PROCEDURE: Informed consent was obtained. The patient was taken to the operating room, placed supine on the operating room table and appropriate time-out was taken to ensure the patient's identity, the operative site and planned procedure. The administration of antibiotics was not necessary as the patient was on systemic and therapeutic antibiotics and these will be continued postoperatively for ongoing therapy of the cellulitis. Everyone in the room agreed with the time-out and we proceeded. His bilateral groins were prepped and draped and a 21-gauge micropuncture needle was used to access the left common femoral artery. This was exchanged using Seldinger technique for a micropuncture sheath through which a 0.035 Glidewire was introduced. The micropuncture sheath was exchanged for a 5-[place]ib[place]ian sheath and a VCF catheter was placed over the wire and through the sheath and aortogram, pelvic arteriogram obtained. The Glidewire was reintroduced and navigated down to the right common femoral artery and the VCF catheter was advanced over this. A right lower extremity arteriogram was obtained. The patient was systemically heparinized with 5000 units of IV heparin. A 0.035 López wire was advanced through the VCF catheter and the VCF catheter and 5-Djiboutian sheath were removed and a 6-Djiboutian, 55-cm Ronnie sheath was introduced and a CXI catheter was placed over the López and through the sheath. The CXI catheter was then navigated down to the superficial femoral artery and the López was exchanged for a PHYSICAL METALLURGIST wire. Using the PHYSICAL METALLURGIST wire and CXI catheter, we were able to navigate to the mid-SFA but were unable to traverse the calcific occlusions. The PHYSICAL METALLURGIST wire was then exchanged for the Glidewire and the Glidewire was used to create a subintimal plane through which we were able to navigate down to the popliteal artery. The CXI catheter was advanced over this and we were able to reenter the true lumen of the popliteal artery and this was confirmed angiographically. The López wire was introduced and the entire SFA was angioplastied with a series of 5-mm balloons. In order to accomplish this, we had to downsize the wire from an 0.035 López to an 0.018 V18 wire. The completion result of the angiogram showed a residual stenosis and the entire SFA was stented with a 6 x 150, 6 x 120, 6 x 80, 6 x 40 self-expanding stent, all of which were postdilated with 5-mm balloons. Completion angiogram showed excellent result without any recoil or extravasation and there was no embolic complications. The wire, catheter and sheath were removed and the groin was closed with an Angio-Seal. There were no complications. I was present, scrubbed and performed the entire procedure. INTERPRETATION OF IMAGES: The patient has patent inferior aorta. The common iliac arteries, bilateral external iliac arteries and hypogastric arteries are without any hemodynamically significant stenosis. The right common femoral artery and profunda are patent. The SFA is occluded after about 1 cm and there is dense calcific occlusions throughout the entire SFA. The popliteal artery reconstitutes and there is three vessel runoff to the foot. After recanalization and angioplasty there is residual stenosis and after stenting there is excellent result with no extravasation and no flow-limiting dissection. MD SCOTT Cherry/GRICELDA , 05:30 AM , 06:17 AM
[2017-06-07 07:05] LABS: BICARBONATE 29.8 MEQ/L (21.0-32.0); CALCIUM 7.7 MG/DL (8.5-10.1); CREATININE 0.97 MG/DL (0.60-1.30)
[2017-06-07] MEDS: INSULIN ASPART SUPPLEMENTAL SCALE SQ SCH ×4 (08:00→20:07)
[2017-06-07] MEDS: ASPIRIN 325 MG TAB PO SCH (08:20)
[2017-06-07] MEDS: LOSARTAN 50 MG TAB PO SCH (08:24)
[2017-06-07] MEDS: SERTRALINE HCL 100 MG TAB PO SCH (08:25)
[2017-06-07] MEDS: PANTOPRAZOLE SOD 20 MG DELAYED RELEASE TAB PO SCH (08:25)
[2017-06-07] MEDS: SODIUM CHLORIDE 0.9% FLUSH 10 ML FLUSH IV FLUSH SCH ×2 (08:25→20:08)
[2017-06-07] MEDS: DOCUSATE SODIUM 50 MG/SENNA 8.6 MG TAB PO SCH ×2 (08:26→20:09)
[2017-06-07] MEDS: FLUTICASONE PROPIONATE 50 MCG/ACT 16 GM NASAL SPRAY EACH NARE SCH (08:27)
--- NOTE | 2017-06-07 09:04 | HHI.PR ---
Subjective Remarks in no acute distress. still with some pain to the left foot. no fever. Objective Vitals Vital Signs Date Time Temp Pulse Resp B/P (MAP) Pulse Ox O2 Delivery O2 Flow Rate FiO2 06/07/17 07:50 98.3 71 20 162/70 (100) 94 06/07/17 06:05 98.5 76 17 142/65 (90) 92 06/07/17 01:45 98.0 75 18 152/88 (109) 92 06/06/17 22:30 21 06/06/17 21:00 97.6 78 20 148/67 (94) 92 06/06/17 19:33 98.1 78 20 150/67 (94) 96 Nasal Cannula 4 06/06/17 19:15 81 20 147/61 (89) 94 Nasal Cannula 4 06/06/17 19:00 85 20 148/66 (93) 95 Bi-Pap 50 06/06/17 18:45 80 20 142/66 (91) 97 Bi-Pap 50 06/06/17 18:35 93 50 06/06/17 18:33 97.8 96 20 139/62 (87) 91 Bi-Pap 50 06/06/17 16:27 98.0 74 18 169/74 (105) 92 06/06/17 12:39 98.1 74 18 133/61 (85) 91 I/O 06/06/17 06/06/17 06/06/17 06/07/17 06/07/17 06/07/17 06:59 14:59 22:59 06:59 14:59 22:59 Intake Total 600 ml 50 ml Output Total 10 ml 800 ml Balance 590 ml -750 ml IV Total 50 ml Other 600 ml Output Urine Total 800 ml Estimated Blood Loss 10 ml # Voids 4 # Bowel Movements 4 1 Result Diagram: 06/07/17 0611 Imaging Last Impressions Foot X-Ray 06/02/17 0000 Signed Impressions: Service Date/Time: Friday, June 02, 2017 19:51 - CONCLUSION: 1. No acute fracture or dislocation. 2. Joint space narrowing involving the first and second metatarsophalangeal joints and the first interphalangeal joint. 3. Achilles calcaneal spurring. 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 The popliteal artery below this reconstitutes and appears to be a satisfactory target vessel with intact three-vessel calf runoff thereafter noted. 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 Leo Maher MD Objective Remarks GENERAL: This is a well-nourished, well-developed patient, in no apparent distress. CARDIOVASCULAR: Regular rate and regular rhythm without murmurs, gallops, or rubs. RESPIRATORY: Clear to auscultation. Breath sounds equal bilaterally. No wheezes , rales, or rhonchi. GASTROINTESTINAL: Abdomen soft, non-tender, nondistended. Normal, active bowel sounds MUSCULOSKELETAL: cyanotic right fourth toe . NEURO: Alert & Oriented x4 to person, place, time, situation. Moves all ext x4 Procedures angiogram Medications and IVs Inpatient Medications Acetaminophen (Tylenol) 650 mg Q6H PRN PO PAIN SCALE 1 TO 2; Start 06/01/17 at 17:00; Stop 06/02/17 at 15:10; Status DC Acetaminophen/ Hydrocodone Bitart ([place] 5-325 Mg) 1 tab Q4H PRN PO PAIN SCALE 3 TO 5; Start 06/01/17 at 17:00; Stop 06/01/17 at 23:42; Status DC Acetaminophen/ Hydrocodone Bitart ([place] 7.5-325 Mg) 1 tab Q4H PRN PO PAIN SCALE 6 TO 10 Last administered on 06/01/17at 18:30; Start 06/01/17 at 17:00; Stop 06/01/17 at 23:42; Status DC Alprazolam (Xanax) 0.5 mg BID PRN PO ANXIETY Last administered on 06/06/17at 15: 49; Start 06/02/17 at 04:15 Amlodipine Besylate (Norvasc) 10 mg DAILY PO Last administered on 06/07/17at 08: 25; Start 06/02/17 at 09:00 Aspirin (Aspirin) 325 mg DAILY PO Last administered on 06/05/17at 08:36; Start at 09:00 Aspirin (Ecotrin Ec) 81 mg DAILY PO ; Start 06/02/17 at 09:00; Stop 06/02/17 at 09 :00; Status DC Atorvastatin Calcium (Lipitor) 10 mg HS PO Last administered on 06/07/17at 00:17 ; Start 06/02/17 at 04:30 Bisacodyl (Dulcolax Supp) 10 mg DAILY PRN RECTAL SEVERE CONSITIPATION; Start at 17:00 Chlorhexidine Gluconate (Chlorhexidine 2% Cloth) 3 pack BACK STRIP MACHINE OPERATOR PRN TOPICAL SEE LABEL COMMENTS; Start 06/06/17 at 07:30; Stop 06/09/17 at 07:29 Clonidine (Catapres) 0.1 mg Q6H PRN PO SBP> OR = 180, DBP> OR = 100; Start 06/02 at 04:15 Clopidogrel Bisulfate (Plavix) 75 mg DAILY PO ; Start 06/08/17 at 09:00 Dextrose (D50w (Vial) Inj) 50 ml UNSCH PRN IV PUSH HYPOGLYCEMIA-SEE COMMENTS; Start 06/02/17 at 08:15 Dextrose/Sodium Chloride 1,000 ml @ 50 mls/hr Q20H IV Last administered on 06/06at 09:35; Start 06/06/17 at 09:00 Diphenhydramine HCl (Benadryl Inj) 25 mg ONCE ONCE IV PUSH Last administered on 06/02/17at 15:09; Start 06/02/17 at 15:00; Stop 06/02/17 at 15:03; Status DC Diphenhydramine HCl (Benadryl) 25 mg Q6H PRN PO ITCHING Last administered on 06/02/17at 19:29; Start 06/02/17 at 21:00 Fluticasone Propionate (Flonase Rob Spr) 2 spray DAILY EACH NARE Last administered on 06/07/17at 08:27; Start 06/02/17 at 09:00 Glucagon (Glucagon Inj) 1 mg UNSCH PRN OTHER HYPOGLYCEMIA-SEE COMMENTS; Start 06/02/17 at 08:15 Heparin Sodium (Porcine) (Heparin Inj) 5,000 units Q12H SQ Last administered on 06/05/17at 17:23; Start 06/01/17 at 18:00 Influenza Virus Vaccine (Flu (Quadrivalent) Vaccine Inj) 0.5 ml ONCE ONCE IM ; Start 06/02/17 at 10:00; Stop 06/02/17 at 10:01; Status DC Insulin Aspart (NovoLOG SUPPLEMENTAL SCALE) 1 ACHS SLIDING SCALE SQ Last administered on 06/04/17at 08:23; Start 06/02/17 at 12:00 Insulin Human Regular (NovoLIN R INJ) See Protocol Table ... BACK STRIP MACHINE OPERATOR PRN SQ SEE PROTOCOL TABLE; Start 06/06/17 at 07:30; Stop 06/09/17 at 07:29 Iohexol 50 ml @ 0 mls/hr ONCE ONCE IV Last administered on 06/06/17at 17:11; Start 06/06/17 at 17:11; Stop 06/06/17 at 17:30; Status DC Lactated Ringer's 1,000 ml @ 30 mls/hr Q24H PRN IV SEE LABEL COMMENTS Last administered on 06/06/17at 16:28; Start 06/06/17 at 07:30; Stop 06/09/17 at 07:29 Lactulose (Lactulose Liq) 30 ml DAILY PRN PO SEVERE CONSITIPATION; Start at 17:00 Losartan Potassium (Cozaar) 100 mg DAILY PO Last administered on 06/07/17at 08:24 ; Start 06/02/17 at 09:00 Magnesium Hydroxide (Milk Of Magnesia Liq) 30 ml Q12H PRN PO Mild constipation ; Start 06/01/17 at 17:00 Metoprolol Tartrate (Lopressor) 25 mg BACK STRIP MACHINE OPERATOR PRN PO SEE LABEL COMMENTS; Start 06/06/17 at 07:30; Stop 06/09/17 at 07:29 Miscellaneous Information ALL NURSING DEPARTME... UNSCH PRN .XX SEE LABEL COMMENTS; Start 06/06/17 at 18:34; Stop 06/07/17 at 18:33 Morphine Sulfate (Morphine Inj) 2 mg Q3H PRN IV PUSH breakthrough Last administered on 06/03/17at 20:26; Start 06/02/17 at 04:45 Naloxone HCl (Narcan Inj) 0.4 mg UNSCH PRN IV PUSH SEE LABEL COMMENTS; Start at 17:00 Ondansetron HCl (Zofran Inj) 4 mg Q6H PRN IVP NAUSEA OR VOMITING Last administered on 06/05/17at 06:15; Start 06/01/17 at 17:00 Oxycodone/ Acetaminophen (Percocet 5-325 Mg) 1 tab Q6H PRN PO pain 1-5; Start 06/01/17 at 23:45; Stop 06/02/17 at 15:00; Status DC Oxycodone/ Acetaminophen (Percocet 10-325 Mg) 1 tab Q6H PRN PO pain 6-10 Last administered on 06/02/17at 12:24; Start 06/01/17 at 23:45; Stop 06/02/17 at 15:00; Status DC Pantoprazole Sodium (Protonix) 20 mg DAILY PO Last administered on 06/07/17at 08: 25; Start 06/02/17 at 09:00 Pharmacy Profile Note 0 ml @ 0 mls/hr UNSCH OTHER ; Start 06/01/17 at 17:00; Stop 06/05/17 at 08:45; Status DC Piperacillin Sod/ Tazobactam Sod 50 ml @ 100 mls/hr Q6H IV Last administered on 06/07/17at 05:56; Start 06/01/17 at 18:00 Povidone Iodine (Betadine 5% Antisepsis Kit) 1 applic BACK STRIP MACHINE OPERATOR PRN EACH NARE SEE LABEL COMMENTS; Start 06/06/17 at 07:30; Stop 06/09/17 at 07:29 Pramipexole Dihydrochloride (Mirapex) 1 mg HS PO Last administered on 06/07/17at 00:15; Start 06/02/17 at 21:00 Senna/Docusate Sodium (Naila-Colace) 1 tab BID PO Last administered on 06/05/17at 08:37; Start 06/01/17 at 21:00 Sennosides (Senokot) 17.2 mg Q12H PRN PO Moderate constipation; Start 06/01/17 at 17:00 Sertraline HCl (Zoloft) 150 mg DAILY PO Last administered on 06/07/17at 08:25; Start 06/02/17 at 09:00 Sodium Chloride 500 ml @ 30 mls/hr [id number] PRN IV SEE LABEL COMMENTS; Start 06/06/17 at 07:30; Stop 06/09/17 at 07:29 Sodium Chloride (NS Flush) 2 ml BID IV FLUSH Last administered on 06/07/17at 08: 25; Start 06/01/17 at 21:00 Tamsulosin HCl (Flomax) 0.8 mg HS PO Last administered on 06/07/17at 00:15; Start 06/02/17 at 21:00 Tramadol HCl (Ultram) 100 mg Q6H PRN PO PAIN SCALE 1-10 Last administered on 06/07/17at 06:00; Start 06/04/17 at 12:15 Vancomycin HCl 1000 mg/Sodium Chloride 250 ml @ 250 mls/hr ONCE ONCE IV Last administered on 06/03/17at 12:24; Start 06/03/17 at 12:00; Stop 06/03/17 at 12:59; Status DC Vancomycin HCl 1250 mg/Sodium Chloride 262.5 ml @ 250 mls/hr ONCE ONCE IV Last administered on 06/04/17at 12:23; Start 06/04/17 at 12:00; Stop 06/04/17 at 13: 02; Status DC A/P Problem List: (1) Cellulitis ICD Code: L03.90 - Cellulitis, unspecified Status: Acute (2) PAD (peripheral artery disease) ICD Code: I73.9 - Peripheral vascular disease, unspecified (3) HTN (hypertension) ICD Code: I10 - Essential (primary) hypertension (4) Diabetes ICD Code: E11.9 - Type 2 diabetes mellitus without complications (5) Failure of outpatient treatment ICD Code: Z78.9 - Other specified health status Status: Acute Assessment and Plan A/P cellulitis of the right fourth toe. Failed outpatient therapy. Difficulty with healing likely due to poor vascularization. - Continue Zosyn. - Podiatry consult appreciated- plan for right fourth toe amputation today. PAD (peripheral artery disease) s/p Aortogram w/ R LE angiogram/ R SFA FLAKING ROLL OPERATOR/stent/L VISUAL MERCHANDISING ASSOCIATE angioseal Continue aspirin,plavix, statin. continue with pain control. HTN (hypertension) Resumed amlodipine and losartan. Monitor BP and titrate antihypertensives as needed. Diabetes Diet controlled. continue SSI. DVT prophylaxis with subq Heparin ( on hold for planned procedure). Discharge Planning for amputation of the right fourth toe today. Problem Qualifiers (1) Cellulitis: Qualified Codes: L03.031 - Cellulitis of right toe Raquel Valenzuela MD Jun 07, 2017 09:04
[2017-06-07 10:18] LABS: CHOLESTEROL/ HDL RATIO 2.56 RATIO; HDL CHOLESTEROL 33.1 MG/DL (40.0-60.0)
[2017-06-07] MEDS ORDERED: LIDOCAINE HCL 1% PF 5 ML SYRINGE OTHER ONE (12:00)
[2017-06-07] MEDS ORDERED: PROPOFOL 200 MG/20 ML AMP IV ONE (12:00)
[2017-06-07] MEDS: LACTATED RINGER'S 1000 ML IV PRN (14:10)
[2017-06-07] MEDS ORDERED: BUPIVACAINE HCL PF 0.5% 30 ML VIAL ONE (15:06)
[2017-06-07] MEDS ORDERED: DO NOT ADM ANY ANTICOAGULANT DRUGS PRN (16:11)
--- NOTE | 2017-06-07 16:13 | HHI.PR ---
Immediate Post Op Note Procedure Date: Jun 07, 2017 Pre Op Diagnosis: ischemic right 4th toe, infected Post Op Diagnosis: same Surgeon: Sam Tijerina DPM Technical Services Consultant(s): Staff Procedure: Amputation right 4th toe Findings: Consistent with diagnosis. Right 4th toe purple in color and cool to touch with wet wound distally to nail area. No drainage noted near surgical site. Discoloration extends just distal to metatarsophalangeal joint area. Two semi- elliptical incisions made encompassing 4th digit and digit removed in disarticulation at MTP joint level. Tissue healthy and viable, bled readily. Culture taken prior to irrigation and closure with 2-0 nylon, followed by dressing with xeroform, 4x4, cast padding, gus. Weightbearing as tolerated in surgical shoe right foot. No further surgery anticipated. Follow up in clinic in 1 week for dressing change. Additional Information: no tourniquet utilized. Complications: none Specimen(s) removed: 1. culture right foot 2. right 4th toe to pathology Estimated blood loss: 10mL Anesthesia: MAC, Local (20mL 0.5% marcaine plain) Drains: None Tourniquet time (min at mmHg) n/a Patient to: PACU Patient Condition: Good Date/Time of Procedure: SEE SURGICAL CARE RECORD Sam Tijerina DPM Jun 07, 2017 16:13
--- NOTE | 2017-06-07 16:36 | RADRPT ---
EXAM DATE/TIME: 06/07/2017 16:12 [facility] COMPARISON: FOOT RIGHT COMPLETE ([id number]), June 02, 2017, 19:51. INDICATIONS : Post amputation of right foot, fourth digit. MEDICAL HISTORY : Diabetes mellitus type II. SURGICAL HISTORY : None. ENCOUNTER: Initial ACUITY: 1 day PAIN SCORE: 0/10 LOCATION: Right foot. FINDINGS: In the interval there has been amputation of the fourth toe. Amputation is transarticular at the MTP joint. Soft tissues are unremarkable. A repeat foreign bodies. No air within the soft tissues. Case Coordinator o-to rise involving the great toe. No fractures or dislocations. CONCLUSION: Fourth toe amputation. Brice Licona Jr., MD on June 07, 2017 at 16:33 Board Certified Radiologist. This report was verified electronically.
--- NOTE | 2017-06-07 16:50 | MP ---
cc: Sam Tijerina DPM DATE OF OPERATION: 06/07/2017 This patient presented with necrotic changes to the right fourth toe. He was seen and procedure was performed by Dr. Loaiza to establish vascularization to the right lower extremity. Following this procedure yesterday, the right foot was evaluated and the fourth toe was found to be cool to the touch with apparent demarcation noted just distal to the metatarsophalangeal joint. I discussed with the patient that he would benefit from amputation of the right fourth toe. He consented and agreed to move forward with the surgery. He was seen in preop holding by myself, nursing staff, and anesthesia where the correct patient, side, and site were all confirmed to be correct on the right foot. He was then taken back to surgical suite, put in supine position, and the right foot was prepped and draped in normal sterile fashion. After time-outs were performed as per hospital protocol, attention was directed to the right fourth toe, where 2 semi-elliptical incisions were made encompassing the fourth digit and it was removed in disarticulation at the level of the metatarsophalangeal joint. Following removal of this, residual tissue was noted to be healthy, viable, and bled readily. The cartilage cap to the fourth metatarsal head was noted to be viable. A culture was taken prior to irrigation, followed by irrigation and closure with 2-0 nylon, followed by a dressing consisting of Xeroform, 4 x 4's, cast padding and Ismael bandage. The patient will be weightbearing as tolerated to the right foot in surgical shoe. He tolerated procedure and anesthesia well without complications. He has no further surgery anticipated from podiatry standpoint and will need to follow up in clinic in 1 week for a dressing change and wound check. SURGEON: Sam Tijerina DPM PASTORAL WORKER: Staff. PREOPERATIVE DIAGNOSIS: Ischemic right fourth toe, infected. POSTOPERATIVE DIAGNOSIS: Ischemic right fourth toe, infected. PROCEDURE: Amputation, right fourth toe. PATHOLOGY: 1. Culture, right foot. 2. Right fourth toe to pathology. ESTIMATED BLOOD LOSS: 10 mL. ANESTHESIA: MAC with local consisting of 20 mL of 0.5% Marcaine plain. TOURNIQUET: No tourniquet was utilized. CONDITION: Stable to PACU. DISPOSITION: Weightbearing as tolerated, right foot, in surgical shoe. No further surgery anticipated. Follow up in clinic in 1 week for dressing change. LISA De Santiago/OLESYA , 04:38 PM , 04:49 PM
[2017-06-08] VITALS: BP 147/70; PULSE 67; RESP 22; TEMP 98; O2SAT 95
[2017-06-08] MEDS: PIPERACIL-TAZO 3.375 GM PREMIX 50 ML IV SCH ×5 (00:36→23:15)
[2017-06-08] MEDS: DEXT 5%-NACL 0.9% 1000 ML INJ 1,000 ML IV SCH (01:10)
[2017-06-08] MEDS: traMADol HCL 50 MG TAB PO PRN ×4 (01:13→23:15)
[2017-06-08 04:00] VITALS: BP 159/74; PULSE 74; RESP 21; TEMP 98; O2SAT 95
[2017-06-08] MEDS: MORPHINE SULFATE 2 MG/ML INJ IV PUSH PRN (05:56)
[2017-06-08] MEDS: HEPARIN SODIUM - SQ 10,000 UNITS/ML VIAL SQ SCH ×2 (06:00→17:19)
[2017-06-08] MEDS: INSULIN ASPART SUPPLEMENTAL SCALE SQ SCH ×4 (07:21→20:28)
[2017-06-08] MEDS: CLOPIDOGREL 75 MG TAB PO SCH (07:40)
[2017-06-08] MEDS: ASPIRIN 325 MG TAB PO SCH (07:40)
[2017-06-08] MEDS: PANTOPRAZOLE SOD 20 MG DELAYED RELEASE TAB PO SCH (07:41)
[2017-06-08] MEDS: LOSARTAN 50 MG TAB PO SCH (07:42)
[2017-06-08] MEDS: SODIUM CHLORIDE 0.9% FLUSH 10 ML FLUSH IV FLUSH SCH ×2 (07:42→20:29)
[2017-06-08] MEDS: SERTRALINE HCL 100 MG TAB PO SCH (07:43)
[2017-06-08] MEDS: DOCUSATE SODIUM 50 MG/SENNA 8.6 MG TAB PO SCH ×2 (07:43→20:29)
[2017-06-08] MEDS: FLUTICASONE PROPIONATE 50 MCG/ACT 16 GM NASAL SPRAY EACH NARE SCH (07:44)
--- NOTE | 2017-06-08 08:30 | HHI.PR ---
Subjective Remarks in no acute distress. but uncomfortable with the pain. no fever. no other complaints. d/w the RN. Objective Vitals Vital Signs Date Time Temp Pulse Resp B/P (MAP) Pulse Ox O2 Delivery O2 Flow Rate FiO2 06/08/17 04:00 98.0 74 21 159/74 (102) 95 06/08/17 00:00 98.0 67 22 147/70 (95) 95 06/07/17 23:51 95 3.00 06/07/17 20:00 98.3 75 20 154/72 (99) 98 06/07/17 17:10 97.2 74 20 152/67 (95) 95 06/07/17 16:30 69 24 153/65 (94) 95 Nasal Cannula 3 06/07/17 16:12 97.3 72 20 154/72 (99) 94 Nasal Cannula 3 06/07/17 11:48 98.7 70 20 170/77 (108) 90 I/O 06/07/17 06/07/17 06/07/17 06/08/17 06/08/17 06/08/17 07:00 15:00 23:00 07:00 15:00 23:00 Intake Total 50 ml 50 ml 350 ml 50 ml Output Total 800 ml 310 ml 700 ml Balance -750 ml 50 ml 40 ml -650 ml IV Total 50 ml 50 ml 350 ml 50 ml Output Urine Total 800 ml 300 ml 700 ml Estimated Blood Loss 10 ml Result Diagram: 06/07/17 0611 Imaging Last Impressions Foot X-Ray 06/07/17 0000 Signed Impressions: Service Date/Time: Wednesday, June 07, 2017 16:12 - CONCLUSION: Fourth toe amputation. 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 The popliteal artery below this reconstitutes and appears to be a satisfactory target vessel with intact three-vessel calf runoff thereafter noted. 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 Leo Maher MD Objective Remarks GENERAL: This is a well-nourished, well-developed patient, in no apparent distress. CARDIOVASCULAR: Regular rate and regular rhythm without murmurs, gallops, or rubs. RESPIRATORY: Clear to auscultation. Breath sounds equal bilaterally. No wheezes , rales, or rhonchi. GASTROINTESTINAL: Abdomen soft, non-tender, nondistended. Normal, active bowel sounds MUSCULOSKELETAL: cyanotic right fourth toe . NEURO: Alert & Oriented x4 to person, place, time, situation. Moves all ext x4 Procedures angiogram/ amputation of the right fourth toe. Medications and IVs Inpatient Medications Acetaminophen (Tylenol) 650 mg Q6H PRN PO PAIN SCALE 1 TO 2; Start 06/01/17 at 17:00; Stop 06/02/17 at 15:10; Status DC Acetaminophen/ Hydrocodone Bitart ([place] 5-325 Mg) 1 tab Q4H PRN PO PAIN SCALE 3 TO 5; Start 06/01/17 at 17:00; Stop 06/01/17 at 23:42; Status DC Acetaminophen/ Hydrocodone Bitart ([place] 7.5-325 Mg) 1 tab Q4H PRN PO PAIN SCALE 6 TO 10 Last administered on 06/01/17at 18:30; Start 06/01/17 at 17:00; Stop 06/01/17 at 23:42; Status DC Alprazolam (Xanax) 0.5 mg BID PRN PO ANXIETY Last administered on 06/06/17at 15: 49; Start 06/02/17 at 04:15 Amlodipine Besylate (Norvasc) 10 mg DAILY PO Last administered on 06/08/17at 07: 42; Start 06/02/17 at 09:00 Aspirin (Aspirin) 325 mg DAILY PO Last administered on 06/05/17at 08:36; Start at 09:00 Aspirin (Ecotrin Ec) 81 mg DAILY PO ; Start 06/02/17 at 09:00; Stop 06/02/17 at 09 :00; Status DC Atorvastatin Calcium (Lipitor) 10 mg HS PO Last administered on 06/07/17at 20:08 ; Start 06/02/17 at 04:30 Bisacodyl (Dulcolax Supp) 10 mg DAILY PRN RECTAL SEVERE CONSITIPATION; Start at 17:00 Chlorhexidine Gluconate (Chlorhexidine 2% Cloth) 3 pack STRUCTURAL MILL SUPERVISOR PRN TOPICAL SEE LABEL COMMENTS; Start 06/06/17 at 07:30; Stop 06/09/17 at 07:29 Clonidine (Catapres) 0.1 mg Q6H PRN PO SBP> OR = 180, DBP> OR = 100; Start 06/02 at 04:15 Clopidogrel Bisulfate (Plavix) 75 mg DAILY PO ; Start 06/08/17 at 09:00 Dextrose (D50w (Vial) Inj) 50 ml UNSCH PRN IV PUSH HYPOGLYCEMIA-SEE COMMENTS; Start 06/02/17 at 08:15 Dextrose/Sodium Chloride 1,000 ml @ 50 mls/hr Q20H IV Last administered on 06/08at 01:10; Start 06/06/17 at 09:00 Diphenhydramine HCl (Benadryl Inj) 25 mg ONCE ONCE IV PUSH Last administered on 06/02/17at 15:09; Start 06/02/17 at 15:00; Stop 06/02/17 at 15:03; Status DC Diphenhydramine HCl (Benadryl) 25 mg Q6H PRN PO ITCHING Last administered on 06/02/17at 19:29; Start 06/02/17 at 21:00 Fluticasone Propionate (Flonase Rob Spr) 2 spray DAILY EACH NARE Last administered on 06/08/17at 07:44; Start 06/02/17 at 09:00 Glucagon (Glucagon Inj) 1 mg UNSCH PRN OTHER HYPOGLYCEMIA-SEE COMMENTS; Start 06/02/17 at 08:15 Heparin Sodium (Porcine) (Heparin Inj) 5,000 units Q12H SQ Last administered on 06/05/17at 17:23; Start 06/01/17 at 18:00 Influenza Virus Vaccine (Flu (Quadrivalent) Vaccine Inj) 0.5 ml ONCE ONCE IM ; Start 06/02/17 at 10:00; Stop 06/02/17 at 10:01; Status DC Insulin Aspart (NovoLOG SUPPLEMENTAL SCALE) 1 ACHS SLIDING SCALE SQ Last administered on 06/04/17at 08:23; Start 06/02/17 at 12:00 Insulin Human Regular (NovoLIN R INJ) See Protocol Table ... STRUCTURAL MILL SUPERVISOR PRN SQ SEE PROTOCOL TABLE; Start 06/06/17 at 07:30; Stop 06/09/17 at 07:29 Iohexol 50 ml @ 0 mls/hr ONCE ONCE IV Last administered on 06/06/17at 17:11; Start 06/06/17 at 17:11; Stop 06/06/17 at 17:30; Status DC Lactated Ringer's 1,000 ml @ 30 mls/hr Q24H PRN IV SEE LABEL COMMENTS Last administered on 06/07/17at 14:10; Start 06/06/17 at 07:30; Stop 06/09/17 at 07:29 Lactulose (Lactulose Liq) 30 ml DAILY PRN PO SEVERE CONSITIPATION; Start at 17:00 Losartan Potassium (Cozaar) 100 mg DAILY PO Last administered on 06/08/17at 07:42 ; Start 06/02/17 at 09:00 Magnesium Hydroxide (Milk Of Magnesia Liq) 30 ml Q12H PRN PO Mild constipation ; Start 06/01/17 at 17:00 Metoprolol Tartrate (Lopressor) 25 mg STRUCTURAL MILL SUPERVISOR PRN PO SEE LABEL COMMENTS; Start 06/06/17 at 07:30; Stop 06/09/17 at 07:29 Miscellaneous Information ALL NURSING DEPARTME... UNSCH PRN .XX SEE LABEL COMMENTS; Start 06/07/17 at 16:11; Stop 06/08/17 at 16:10 Morphine Sulfate (Morphine Inj) 2 mg Q3H PRN IV PUSH breakthrough Last administered on 06/08/17at 05:56; Start 06/02/17 at 04:45 Naloxone HCl (Narcan Inj) 0.4 mg UNSCH PRN IV PUSH SEE LABEL COMMENTS; Start at 17:00 Ondansetron HCl (Zofran Inj) 4 mg Q6H PRN IVP NAUSEA OR VOMITING Last administered on 06/05/17at 06:15; Start 06/01/17 at 17:00 Oxycodone/ Acetaminophen (Percocet 5-325 Mg) 1 tab Q6H PRN PO pain 1-5; Start 06/01/17 at 23:45; Stop 06/02/17 at 15:00; Status DC Oxycodone/ Acetaminophen (Percocet 10-325 Mg) 1 tab Q6H PRN PO pain 6-10 Last administered on 06/02/17at 12:24; Start 06/01/17 at 23:45; Stop 06/02/17 at 15:00; Status DC Pantoprazole Sodium (Protonix) 20 mg DAILY PO Last administered on 06/08/17 07: 41; Start 06/02/17 at 09:00 Pharmacy Profile Note 0 ml @ 0 mls/hr UNSCH OTHER ; Start 06/01/17 at 17:00; Stop 06/05/17 at 08:45; Status DC Piperacillin Sod/ Tazobactam Sod 50 ml @ 100 mls/hr Q6H IV Last administered on 06/08/17 05:52; Start 06/01/17 at 18:00 Povidone Iodine (Betadine 5% Antisepsis Kit) 1 applic STRUCTURAL MILL SUPERVISOR PRN EACH NARE SEE LABEL COMMENTS; Start 06/06/17 at 07:30; Stop 06/09/17 at 07:29 Pramipexole Dihydrochloride (Mirapex) 1 mg HS PO Last administered on 06/07/17at 20:07; Start 06/02/17 at 21:00 Senna/Docusate Sodium (Naila-Colace) 1 tab BID PO Last administered on 06/05/17at 08:37; Start 06/01/17 at 21:00 Sennosides (Senokot) 17.2 mg Q12H PRN PO Moderate constipation; Start 06/01/17 at 17:00 Sertraline HCl (Zoloft) 150 mg DAILY PO Last administered on 06/08/17 07:43; Start 06/02/17 at 09:00 Sodium Chloride 500 ml @ 30 mls/hr [id number] PRN IV SEE LABEL COMMENTS; Start 06/06/17 at 07:30; Stop 06/09/17 at 07:29 Sodium Chloride (NS Flush) 2 ml BID IV FLUSH Last administered on 06/08/17 07: 42; Start 06/01/17 at 21:00 Tamsulosin HCl (Flomax) 0.8 mg HS PO Last administered on 06/07/17 20:08; Start 06/02/17 at 21:00 Tramadol HCl (Ultram) 100 mg Q6H PRN PO PAIN SCALE 1-10 Last administered on 07:42; Start 06/04/17 at 12:15 Vancomycin HCl 1000 mg/Sodium Chloride 250 ml @ 250 mls/hr ONCE ONCE IV Last administered on 06/03/17at 12:24; Start 06/03/17 at 12:00; Stop 06/03/17 at 12:59; Status DC Vancomycin HCl 1250 mg/Sodium Chloride 262.5 ml @ 250 mls/hr ONCE ONCE IV Last administered on 06/04/17at 12:23; Start 06/04/17 at 12:00; Stop 06/04/17 at 13: 02; Status DC A/P Problem List: (1) Cellulitis ICD Code: L03.90 - Cellulitis, unspecified Status: Acute (2) PAD (peripheral artery disease) ICD Code: I73.9 - Peripheral vascular disease, unspecified (3) HTN (hypertension) ICD Code: I10 - Essential (primary) hypertension (4) Diabetes ICD Code: E11.9 - Type 2 diabetes mellitus without complications (5) Failure of outpatient treatment ICD Code: Z78.9 - Other specified health status Status: Acute Assessment and Plan A/P cellulitis of the right fourth toe. Failed outpatient therapy. Difficulty with healing likely due to poor vascularization. - started on Zosyn. - Podiatry consult appreciated- s/p right fourth toe amputation. -continue with pain control. PAD (peripheral artery disease) s/p Aortogram w/ R LE angiogram/ R SFA HIGH LIFT OPERATOR/stent/L RESIDENTIAL FIELD MANAGER angioseal Continue aspirin,plavix, statin. continue with pain control. HTN (hypertension) Resumed amlodipine and losartan. Monitor BP and titrate antihypertensives as needed. Diabetes Diet controlled. continue SSI. DVT prophylaxis with subq Heparin . Discharge Planning when cleared by podiatry and vascular surgery. Problem Qualifiers (1) Cellulitis: Qualified Codes: L03.031 - Cellulitis of right toe Raquel Valenzuela MD Jun 08, 2017 08:30
[2017-06-08] MEDS ORDERED: OXYC1CAP PO (08:32)
[2017-06-08] MEDS ORDERED: PLAV75TA29 PO (08:32)
[2017-06-08 08:38] VITALS: BP 147/67; PULSE 67; RESP 20; TEMP 98.8; O2SAT 92
[2017-06-08] MEDS: MORPHINE SULFATE 4 MG/ML INJ IV PUSH PRN ×2 (10:40→18:58)
[2017-06-08 11:13] VITALS: BP 139/68; PULSE 68; RESP 20; TEMP 97.8; O2SAT 94
--- NOTE | 2017-06-08 11:36 | PD.VS.PN ---
Subjective POD #: 2 Procedure(s): Aortogram w/ R LE angiogram R SFA BENDER MACHINE/stent L NITROGLYCERIN SUPERVISOR angioseal Subjective/Hospital Course 77/M w/ a hx of R foot tissue loss and non palpable distal pulse. Pt s/p R LE revascularization (POD 2) Pt doing well Objective Vitals/I&O Date Time Temp Pulse Resp B/P (MAP) Pulse Ox O2 Delivery O2 Flow Rate FiO2 06/08/17 11:13 97.8 68 20 139/68 (91) 94 06/08/17 08:38 98.8 67 20 147/67 (93) 92 06/08/17 04:00 98.0 74 21 159/74 (102) 95 06/08/17 00:00 98.0 67 22 147/70 (95) 95 06/07/17 23:51 95 3.00 06/07/17 20:00 98.3 75 20 154/72 (99) 98 06/07/17 17:10 97.2 74 20 152/67 (95) 95 06/07/17 16:30 69 24 153/65 (94) 95 Nasal Cannula 3 06/07/17 16:12 97.3 72 20 154/72 (99) 94 Nasal Cannula 3 06/07/17 11:48 98.7 70 20 170/77 (108) 90 06/08/17 06/08/17 06/08/17 07:00 15:00 23:00 Intake Total 50 ml Output Total 700 ml Balance -650 ml Exam: GENERAL: A&Ox3, NAD,GCS15 SKIN: Warm and dry.Post op dressing to R foot I/C/D LE warm with motor intact HEAD: Normocephalic. EYES: No scleral icterus. No injection or drainage. NECK: Supple, trachea midline. No JVD or lymphadenopathy. MUSCULOSKELETAL: No cyanosis, or edema. R DP with multiphasic signals heard via Doppler Laboratory Date/Time Source Procedure Growth Status 06/01/17 14:35 Blood Peripheral Aerobic Blood Culture - Final NO GROWTH IN 5 DAYS Complete 06/01/17 14:35 Blood Peripheral Anaerobic Blood Culture - Final NO GROWTH IN 5 DAYS Complete 06/07/17 15:50 Wound Foot Fungal Smear - Final NO FUNGAL ELEMENTS SEEN. Resulted 06/07/17 15:50 Wound Foot Fungal Culture Pending Resulted Assessment and Plan Assessment: (1) PAD (peripheral artery disease) Plan Acute on chronic PAD, R LE SFA disease primarily. Pt S/P R LE revascularization Pt doing well w/o complaints Plan Continue CV risk factor modification -ASA/statin/beta nicol Pt clear for D/C from a vascular stand point Arranged out pt f/u with a surveillance JAYME Discussed w/ pt Pt agrees w/ plan Sabrina Marquis NP [facility] [phone] Discharge Planning Pt clear for d/c from a vascular stand point Sabrina Marquis [facility] Jun 08, 2017 11:36
[2017-06-08 16:04] VITALS: BP_SYST 145; BP_SYST 156; BP_DIAS 70; BP_DIAS 87; PULSE 64; RESP 20; TEMP 94.9; O2SAT 92
--- NOTE | 2017-06-08 16:04 | PD.POD ---
Subjective Podiatric Problems R #4 necrosis, s/p amputation R #[address] 06.[address] Tijerina Past Med/Surg/Social History Social History Smoking Status: Former Smoker Objective Vital Signs Vital Signs Date Time Temp Pulse Resp B/P (MAP) Pulse Ox O2 Delivery O2 Flow Rate FiO2 06/08/17 11:13 97.8 68 20 139/68 (91) 94 06/08/17 08:38 98.8 67 20 147/67 (93) 92 06/08/17 04:00 98.0 74 21 159/74 (102) 95 06/08/17 00:00 98.0 67 22 147/70 (95) 95 06/07/17 23:51 95 3.00 06/07/17 20:00 98.3 75 20 154/72 (99) 98 06/07/17 17:10 97.2 74 20 152/67 (95) 95 06/07/17 16:30 69 24 153/65 (94) 95 Nasal Cannula 3 06/07/17 16:12 97.3 72 20 154/72 (99) 94 Nasal Cannula 3 Coded Allergies: hydrocodone (Verified Allergy, Mild, 06/02/17) Patient started having redness around the mouth, chills, and slight swelling of the tongue. amitriptyline (Verified Allergy, Unknown, B/P PROB, 06/01/17) ciprofloxacin (Verified Allergy, Unknown, 06/01/17) dexamethasone (Verified Allergy, Unknown, 06/01/17) fosinopril (Verified Allergy, Unknown, 06/01/17) gabapentin (Verified Allergy, Unknown, 06/01/17) sulindac (Verified Allergy, Unknown, 06/01/17) Physical Exam Remarks Right foot dressing clean, dry, intact Assessment & Plan A/P R #4 gangrene s/p amputation R #[address] 06.07[address] Tijerina Continue WBAT in surgical shoe. OK to remove shoe when at rest. Follow up in 1 week for dressing change in [facility] Keep current bandage clean, dry, intact until then. Ok with d/c anytime, will follow cultures outpatient. No growth so far Sam Tijerina DPM Jun 08, 2017 16:04
[2017-06-08] MEDS: TAMSULOSIN HCL 0.4 MG CAP PO SCH (20:28)
[2017-06-08] MEDS: ATORVASTATIN 10 MG TAB PO SCH (20:29)
[2017-06-08] MEDS: PRAMIPEXOLE DIHYDROCHLORIDE 1 MG TAB PO SCH (20:29)
[2017-06-08 20:48] VITALS: BP 155/73; PULSE 67; RESP 18; TEMP 98.5; O2SAT 95
[2017-06-09 00:30] VITALS: BP 146/65; PULSE 68; RESP 18; TEMP 97.8; O2SAT 94
[2017-06-09] MEDS: DEXT 5%-NACL 0.9% 1000 ML INJ 1,000 ML IV SCH (02:47)
[2017-06-09 05:10] VITALS: BP 124/60; PULSE 69; RESP 18; TEMP 97.6; O2SAT 94
[2017-06-09] MEDS: HEPARIN SODIUM - SQ 10,000 UNITS/ML VIAL SQ SCH (05:17)
[2017-06-09] MEDS: PIPERACIL-TAZO 3.375 GM PREMIX 50 ML IV SCH (05:27)
[2017-06-09] MEDS: traMADol HCL 50 MG TAB PO PRN (06:30)
[2017-06-09] MEDS: INSULIN ASPART SUPPLEMENTAL SCALE SQ SCH (07:48)
[2017-06-09 08:00] VITALS: BP 131/62; PULSE 68; RESP 18; TEMP 97.6; O2SAT 93
[2017-06-09] MEDS: CLOPIDOGREL 75 MG TAB PO SCH (08:15)
[2017-06-09] MEDS: PANTOPRAZOLE SOD 20 MG DELAYED RELEASE TAB PO SCH (08:15)
[2017-06-09] MEDS: ASPIRIN 325 MG TAB PO SCH (08:15)
[2017-06-09] MEDS: SODIUM CHLORIDE 0.9% FLUSH 10 ML FLUSH IV FLUSH SCH (08:16)
[2017-06-09] MEDS: DOCUSATE SODIUM 50 MG/SENNA 8.6 MG TAB PO SCH (08:16)
[2017-06-09] MEDS: LOSARTAN 50 MG TAB PO SCH (08:17)
[2017-06-09] MEDS: FLUTICASONE PROPIONATE 50 MCG/ACT 16 GM NASAL SPRAY EACH NARE SCH (08:17)
[2017-06-09] MEDS: SERTRALINE HCL 100 MG TAB PO SCH (08:17)
--- NOTE | 2017-06-09 08:30 | HHI.PR ---
Subjective Remarks in no acute distress. pain is fairly controlled. no fever. d/w the RN and no acute issues over night. Objective Vitals Vital Signs Date Time Temp Pulse Resp B/P (MAP) Pulse Ox O2 Delivery O2 Flow Rate FiO2 06/09/17 08:00 97.6 68 18 131/62 (85) 93 06/09/17 05:10 97.6 69 18 124/60 (81) 94 06/09/17 00:30 97.8 68 18 146/65 (92) 94 06/08/17 20:48 98.5 67 18 155/73 (100) 95 06/08/17 16:04 94.9 64 20 156/87 (110) 92 145/70 (95) 06/08/17 11:13 97.8 68 20 139/68 (91) 94 06/08/17 08:38 98.8 67 20 147/67 (93) 92 I/O 06/08/17 06/08/17 06/08/17 06/09/17 06/09/17 06/09/17 07:00 15:00 23:00 07:00 15:00 23:00 Intake Total 50 ml 990 ml Output Total 700 ml 400 ml Balance -650 ml 990 ml -400 ml Intake Oral 940 ml IV Total 50 ml 50 ml Output Urine Total 700 ml 400 ml # Voids 4 # Bowel Movements 0 Result Diagram: 06/07/17 0611 Imaging Last Impressions Foot X-Ray 06/07/17 0000 Signed Impressions: Service Date/Time: Wednesday, June 07, 2017 16:12 - CONCLUSION: Fourth toe amputation. 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 The popliteal artery below this reconstitutes and appears to be a satisfactory target vessel with intact three-vessel calf runoff thereafter noted. 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 Leo Maher MD Objective Remarks GENERAL: This is a well-nourished, well-developed patient, in no apparent distress. CARDIOVASCULAR: Regular rate and regular rhythm without murmurs, gallops, or rubs. RESPIRATORY: Clear to auscultation. Breath sounds equal bilaterally. No wheezes , rales, or rhonchi. GASTROINTESTINAL: Abdomen soft, non-tender, nondistended. Normal, active bowel sounds MUSCULOSKELETAL: cyanotic right fourth toe . NEURO: Alert & Oriented x4 to person, place, time, situation. Moves all ext x4 Procedures angiogram/ amputation of the right fourth toe. Medications and IVs Inpatient Medications Acetaminophen (Tylenol) 650 mg Q6H PRN PO PAIN SCALE 1 TO 2; Start 06/01/17 at 17:00; Stop 06/02/17 at 15:10; Status DC Acetaminophen/ Hydrocodone Bitart ([place] 5-325 Mg) 1 tab Q4H PRN PO PAIN SCALE 3 TO 5; Start 06/01/17 at 17:00; Stop 06/01/17 at 23:42; Status DC Acetaminophen/ Hydrocodone Bitart ([place] 7.5-325 Mg) 1 tab Q4H PRN PO PAIN SCALE 6 TO 10 Last administered on 06/01/17at 18:30; Start 06/01/17 at 17:00; Stop 06/01/17 at 23:42; Status DC Alprazolam (Xanax) 0.5 mg BID PRN PO ANXIETY Last administered on 06/06/17at 15: 49; Start 06/02/17 at 04:15 Amlodipine Besylate (Norvasc) 10 mg DAILY PO Last administered on 06/09/17at 08: 15; Start 06/02/17 at 09:00 Aspirin (Aspirin) 325 mg DAILY PO Last administered on 06/09/17at 08:15; Start at 09:00 Aspirin (Ecotrin Ec) 81 mg DAILY PO ; Start 06/02/17 at 09:00; Stop 06/02/17 at 09 :00; Status DC Atorvastatin Calcium (Lipitor) 10 mg HS PO Last administered on 06/08/17at 20:29 ; Start 06/02/17 at 04:30 Bisacodyl (Dulcolax Supp) 10 mg DAILY PRN RECTAL SEVERE CONSITIPATION; Start at 17:00 Chlorhexidine Gluconate (Chlorhexidine 2% Cloth) 3 pack ACCREDITED LEGAL SECRETARY PRN TOPICAL SEE LABEL COMMENTS; Start 06/06/17 at 07:30; Stop 06/09/17 at 07:29; Status DC Clonidine (Catapres) 0.1 mg Q6H PRN PO SBP> OR = 180, DBP> OR = 100; Start 06/02 at 04:15 Clopidogrel Bisulfate (Plavix) 75 mg DAILY PO Last administered on 06/09/17at 08: 15; Start 06/08/17 at 09:00 Dextrose (D50w (Vial) Inj) 50 ml UNSCH PRN IV PUSH HYPOGLYCEMIA-SEE COMMENTS; Start 06/02/17 at 08:15 Dextrose/Sodium Chloride 1,000 ml @ 50 mls/hr Q20H IV Last administered on 06/09at 02:47; Start 06/06/17 at 09:00 Diphenhydramine HCl (Benadryl Inj) 25 mg ONCE ONCE IV PUSH Last administered on 06/02/17at 15:09; Start 06/02/17 at 15:00; Stop 06/02/17 at 15:03; Status DC Diphenhydramine HCl (Benadryl) 25 mg Q6H PRN PO ITCHING Last administered on 06/02/17at 19:29; Start 06/02/17 at 21:00 Fluticasone Propionate (Flonase Rob Spr) 2 spray DAILY EACH NARE Last administered on 06/09/17at 08:17; Start 06/02/17 at 09:00 Glucagon (Glucagon Inj) 1 mg UNSCH PRN OTHER HYPOGLYCEMIA-SEE COMMENTS; Start 06/02/17 at 08:15 Heparin Sodium (Porcine) (Heparin Inj) 5,000 units Q12H SQ Last administered on 06/09/17at 05:17; Start 06/01/17 at 18:00 Influenza Virus Vaccine (Flu (Quadrivalent) Vaccine Inj) 0.5 ml ONCE ONCE IM ; Start 06/02/17 at 10:00; Stop 06/02/17 at 10:01; Status DC Insulin Aspart (NovoLOG SUPPLEMENTAL SCALE) 1 ACHS SLIDING SCALE SQ Last administered on 06/04/17at 08:23; Start 06/02/17 at 12:00 Insulin Human Regular (NovoLIN R INJ) See Protocol Table ... ACCREDITED LEGAL SECRETARY PRN SQ SEE PROTOCOL TABLE; Start 06/06/17 at 07:30; Stop 06/09/17 at 07:29; Status DC Iohexol 50 ml @ 0 mls/hr ONCE ONCE IV Last administered on 06/06/17at 17:11; Start 06/06/17 at 17:11; Stop 06/06/17 at 17:30; Status DC Lactated Ringer's 1,000 ml @ 30 mls/hr Q24H PRN IV SEE LABEL COMMENTS Last administered on 06/07/17at 14:10; Start 06/06/17 at 07:30; Stop 06/09/17 at 07:29; Status DC Lactulose (Lactulose Liq) 30 ml DAILY PRN PO SEVERE CONSITIPATION; Start at 17:00 Losartan Potassium (Cozaar) 100 mg DAILY PO Last administered on 06/09/17at 08:17 ; Start 06/02/17 at 09:00 Magnesium Hydroxide (Milk Of Magnesia Liq) 30 ml Q12H PRN PO Mild constipation ; Start 06/01/17 at 17:00 Metoprolol Tartrate (Lopressor) 25 mg ACCREDITED LEGAL SECRETARY PRN PO SEE LABEL COMMENTS; Start 06/06/17 at 07:30; Stop 06/09/17 at 07:29; Status DC Miscellaneous Information ALL NURSING DEPARTME... UNSCH PRN .XX SEE LABEL COMMENTS; Start 06/07/17 at 16:11; Stop 06/08/17 at 16:10; Status DC Morphine Sulfate (Morphine Inj) 3 mg Q3H PRN IV PUSH breakthrough PAIN Last administered on 06/08/17at 18:58; Start 06/08/17 at 10:45 Naloxone HCl (Narcan Inj) 0.4 mg UNSCH PRN IV PUSH SEE LABEL COMMENTS; Start at 17:00 Ondansetron HCl (Zofran Inj) 4 mg Q6H PRN IVP NAUSEA OR VOMITING Last administered on 06/05/17at 06:15; Start 06/01/17 at 17:00 Oxycodone/ Acetaminophen (Percocet 5-325 Mg) 1 tab Q6H PRN PO pain 1-5; Start 06/01/17 at 23:45; Stop 06/02/17 at 15:00; Status DC Oxycodone/ Acetaminophen (Percocet 10-325 Mg) 1 tab Q6H PRN PO pain 6-10 Last administered on 06/02/17at 12:24; Start 06/01/17 at 23:45; Stop 06/02/17 at 15:00; Status DC Pantoprazole Sodium (Protonix) 20 mg DAILY PO Last administered on 06/09/17 08: 15; Start 06/02/17 at 09:00 Pharmacy Profile Note 0 ml @ 0 mls/hr UNSCH OTHER ; Start 06/01/17 at 17:00; Stop 06/05/17 at 08:45; Status DC Piperacillin Sod/ Tazobactam Sod 50 ml @ 100 mls/hr Q6H IV Last administered on 06/09/17 05:27; Start 06/01/17 at 18:00 Povidone Iodine (Betadine 5% Antisepsis Kit) 1 applic ACCREDITED LEGAL SECRETARY PRN EACH NARE SEE LABEL COMMENTS; Start 06/06/17 at 07:30; Stop 06/09/17 at 07:29; Status DC Pramipexole Dihydrochloride (Mirapex) 1 mg HS PO Last administered on 06/08/17 20:29; Start 06/02/17 at 21:00 Senna/Docusate Sodium (Naila-Colace) 1 tab BID PO Last administered on 06/09/17 08:16; Start 06/01/17 at 21:00 Sennosides (Senokot) 17.2 mg Q12H PRN PO Moderate constipation; Start 06/01/17 at 17:00 Sertraline HCl (Zoloft) 150 mg DAILY PO Last administered on 06/09/17 08:17; Start 06/02/17 at 09:00 Sodium Chloride 500 ml @ 30 mls/hr [id number] PRN IV SEE LABEL COMMENTS; Start 06/06/17 at 07:30; Stop 06/09/17 at 07:29; Status DC Sodium Chloride (NS Flush) 2 ml BID IV FLUSH Last administered on 06/08/17 07: 42; Start 06/01/17 at 21:00 Tamsulosin HCl (Flomax) 0.8 mg HS PO Last administered on 06/08/17 20:28; Start 06/02/17 at 21:00 Tramadol HCl (Ultram) 100 mg Q6H PRN PO PAIN SCALE 1-10 Last administered on 06:30; Start 06/04/17 at 12:15 Vancomycin HCl 1000 mg/Sodium Chloride 250 ml @ 250 mls/hr ONCE ONCE IV Last administered on 06/03/17at 12:24; Start 06/03/17 at 12:00; Stop 06/03/17 at 12:59; Status DC Vancomycin HCl 1250 mg/Sodium Chloride 262.5 ml @ 250 mls/hr ONCE ONCE IV Last administered on 06/04/17at 12:23; Start 06/04/17 at 12:00; Stop 06/04/17 at 13: 02; Status DC A/P Problem List: (1) Cellulitis ICD Code: L03.90 - Cellulitis, unspecified Status: Acute (2) PAD (peripheral artery disease) ICD Code: I73.9 - Peripheral vascular disease, unspecified (3) HTN (hypertension) ICD Code: I10 - Essential (primary) hypertension (4) Diabetes ICD Code: E11.9 - Type 2 diabetes mellitus without complications (5) Failure of outpatient treatment ICD Code: Z78.9 - Other specified health status Status: Acute Assessment and Plan A/P cellulitis of the right fourth toe/ PVD Failed outpatient therapy. -s/p Aortogram w/ R LE angiogram/ R SFA SERVICE AIDE/stent/L IMAGERY ANALYST angioseal - Podiatry consult appreciated- s/p right fourth toe amputation. -continue aspirin, plavix, statin. -continue with pain control. -cleared by podiatry and vascular surgery for discharge. HTN (hypertension) Resumed amlodipine and losartan. Monitor BP and titrate antihypertensives as needed. Diabetes Diet controlled. continue SSI. DVT prophylaxis with subq Heparin . Discharge Planning dc home today. see med list. f/u; pcp, vascular surgery and podiatry. d/w the patient and RN. time spent 35 min. Problem Qualifiers (1) Cellulitis: Qualified Codes: L03.031 - Cellulitis of right toe Raquel Valenzuela MD Jun 09, 2017 08:30
--- NOTE | 2017-06-09 08:33 | HHI.DS ---
Discharge Summary Admission Date Jun 01, 2017 at 16:37 Discharge Date: Jun 09, 2017 Admitting Diagnosis toe cellulitis, outpatient treatment failure (1) Cellulitis ICD Code: L03.90 - Cellulitis, unspecified Diagnosis: Principal Status: Acute (2) PAD (peripheral artery disease) ICD Code: I73.9 - Peripheral vascular disease, unspecified Diagnosis: Principal (3) HTN (hypertension) ICD Code: I10 - Essential (primary) hypertension Diagnosis: Secondary (4) Diabetes ICD Code: E11.9 - Type 2 diabetes mellitus without complications Diagnosis: Secondary (5) Failure of outpatient treatment ICD Code: Z78.9 - Other specified health status Diagnosis: Principal Status: Acute Procedures angiogram/ amputation of the right fourth toe. Brief History - From Admission 77-year-old male with a medical history significant for hypertension, diet- controlled diabetes, history of PE presents to the emergency room with complaint of worsening right fourth toe infection. Patient reports his symptoms started about a week ago after he tried to cut an ingrown toenail. He was seen in the emergency room at [facility] and was given antibiotics and pain medications. Over the past couple of days he noticed his symptoms are getting worse. He notes the toe has been intermittently black or purple. He denies any fevers or chills. He has had surrounding redness with streaking over the dorsal aspect of his foot. He reports significant pain on the right fourth toe. CBC/BMP: 06/07/17 0611 Significant Findings Laboratory Tests Test 06/07/17 06:11 Calcium Level 7.7 MG/DL (8.5-10.1) Estimat Glomerular Filtration Rate 75 ML/MIN (>89) Aspartate Amino Transf (AST/SGOT) 41 U/L (15-37) Cholesterol Level 85 MG/DL (120-200) HDL Cholesterol 33.1 MG/DL (40.0-60.0) Imaging Last Impressions Foot X-Ray 06/07/17 0000 Signed Impressions: Service Date/Time: Wednesday, June 07, 2017 16:12 - CONCLUSION: Fourth toe amputation. 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 The popliteal artery below this reconstitutes and appears to be a satisfactory target vessel with intact three-vessel calf runoff thereafter noted. 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 Leo Maher MD PE at Discharge GENERAL: This is a well-nourished, well-developed patient, in no apparent distress. CARDIOVASCULAR: Regular rate and regular rhythm without murmurs, gallops, or rubs. RESPIRATORY: Clear to auscultation. Breath sounds equal bilaterally. No wheezes , rales, or rhonchi. GASTROINTESTINAL: Abdomen soft, non-tender, nondistended. Normal, active bowel sounds MUSCULOSKELETAL: cyanotic right fourth toe . NEURO: Alert & Oriented x4 to person, place, time, situation. Moves all ext x4 Hospital Course cellulitis of the right fourth toe/ PVD Failed outpatient therapy. -s/p Aortogram w/ R LE angiogram/ R SFA CEMENT HANDLER/stent/L TAVERN KEEPER angioseal - Podiatry consult appreciated- s/p right fourth toe amputation. -continue aspirin, plavix, statin. -continue with pain control. -f/u by podiatry and vascular surgery upon discharge. HTN (hypertension) Resumed amlodipine and losartan. Diabetes Diet controlled. Pt Condition on Discharge: Fair Discharge Disposition: Disch w/ Home Health Serv Discharge Time: > 30 minutes Discharge Instructions DIET: Follow Instructions for: Heart Healthy Diet, Diabetic Diet Activities you can perform: Regular-No Restrictions Other Activity Instructions: Continue WBAT in surgical shoe. OK to remove shoe when at rest. Raquel Valenzuela MD Jun 09, 2017 08:33
--- NOTE | 2017-06-09 08:35 | HHI.FF ---
Face to Face Verification Diagnosis: (1) PAD (peripheral artery disease) Physical Therapy Order: Evaluate and Treat Home Health Nursing Order: Medical education Signs/symptoms of disease process Medication education-adverse effect Nursing assessment with vital signs I have seen patient Leo Weber on 06/09/17. My clinical findings support the need for the requested home health care services because: Ltd mobility - disease progression I certify that my clinical findings support that this patient is homebound because: Unsteady gait/balance Raquel Valenzuela MD Jun 09, 2017 08:35
[2017-06-09] MEDS ORDERED: CEPH-460 PO (10:02)
== END 2017-06-09 11:19 | disposition home health service (06) | DRG 253 ==
LOC: NEPD 12:46 → NEDA 16:37 → N05A 18:45
PROVIDERS: ADMIT Internal Medicine; ATTEND Internal Medicine
PROC: B41D1ZZ Fluoroscopy of Aorta and Bilateral Lower Extremity Arteries using Low Osmolar Contrast (ICD-10-PCS; 2017-06-06)
PROC: 047K3DZ Dilation of Right Femoral Artery with Intraluminal Device, Percutaneous Approach (ICD-10-PCS; principal; 2017-06-06 16:38)
PROC: 0Y6V0Z0 Detachment at Right 4th Toe, Complete, Open Approach (ICD-10-PCS; 2017-06-07)
DX: E11.52 Type 2 diabetes mellitus with diabetic peripheral angiopathy with gangrene (principal); I96 Gangrene, not elsewhere classified; I10 Essential (primary) hypertension; I70.211 Atherosclerosis of native arteries of extremities with intermittent claudication, right leg; L03.031 Cellulitis of right toe; M19.90 Unspecified osteoarthritis, unspecified site; E78.00 Pure hypercholesterolemia, unspecified; I25.10 Atherosclerotic heart disease of native coronary artery without angina pectoris; H40.9 Unspecified glaucoma; M10.9 Gout, unspecified; G47.30 Sleep apnea, unspecified; N40.0 Benign prostatic hyperplasia without lower urinary tract symptoms; F32.9 Major depressive disorder, single episode, unspecified; F41.9 Anxiety disorder, unspecified; G25.81 Restless legs syndrome; Z86.711 Personal history of pulmonary embolism; Z87.891 Personal history of nicotine dependence; Z88.1 Allergy status to other antibiotic agents; Z88.5 Allergy status to narcotic agent; Z98.61 Coronary angioplasty status
CPT/HCPCS: 73630; 75630; 75635; 80048; 80061; 80202; 82948; 84450; 84460; 85025; 85652; 86140; 87015; 87040; 87070; 87102; 87116; 87205; 87206; 88305; 88311; 93922; 94002; 96365; 96375; C1725; C1769; C1876; J0690; J1200; J1644; J1815; J2270; J2405; J2543; J2720; J3010; J3370; J7030; J7042; J7050; J7120; L3260; Q9967

== ENCOUNTER 2017-06-29 12:51 | Emergency (ER) | payer MEDICARE, OTHER ==
[~2017-06-29] VITALS: Ht 165.1 cm; Wt 85.0 kg
[~2017-06-29 12:51] MED LIST changes: -BACT800T5 PO; -CAPS0.1C2 TOPICAL; +CEPH-460 PO; -LIDO1PAD52 TOPICAL; +PLAV75TA29 PO; -TRAM50TA PO; -VANCOMYCIN 1,000 MG/NS 250 ML IV SCH
[2017-06-29 12:56] VITALS: BP 170/79; PULSE 75; RESP 18; TEMP 98.6; O2SAT 99
[2017-06-29] MEDS ORDERED: SODIUM CHLOR 0.9% 1000 ML INJ 1,000 ML IV ONE (15:21)
[2017-06-29] MEDS ORDERED: ONDANSETRON HCL 4 MG/2 ML VIAL IV PUSH ONE (15:30)
[2017-06-29] MEDS ORDERED: SODIUM CHLORIDE 0.9% FLUSH 10 ML FLUSH IVF PRN (15:30)
--- NOTE | 2017-06-29 15:54 | PD ---
HPI . Nausea Chief Complaint: GI Complaint Time Seen by Provider: 15:20 Travel History International Travel<30 days: No Contact w/Intl Traveler<30days: No Traveled to known affect area: No History of Present Illness HPI This patient presents stating that he has had a funny taste in his mouth and nausea since being discharged from the hospital approximately June 09. He was hospitalized because of peripheral artery disease with associated gangrene in the right fourth toe. He underwent angioplasty and stenting of the right lower extremity and amputation of the right fourth toe. While in the hospital, he was treated with various antibiotics including Zosyn, vancomycin and a cephalosporin. He now comes in complaining with the foul taste and nausea which have been persistent symptoms since his discharge and alternating diarrhea and constipation. He states that he has seen some blood in his stool. He has not been running a fever. He is unaware of any modifying factors. Symptoms are mild. PFSH Past Medical History Hx Anticoagulant Therapy: Yes (BABY ASA) Arthritis: Yes Blood Disorders: No Anxiety: Yes Depression: Yes Heart Rhythm Problems: No Cancer: No Cardiovascular Problems: Yes (HTN) High Cholesterol: Yes Chest Pain: Yes Congestive Heart Failure: No Coronary Artery Disease: Yes Diabetes: Yes (DIET CONTROLLED) GERD: Yes Glaucoma: Yes ("DRY") Gout: Yes Genitourinary: No Headaches: Yes Herniated Disk: Yes (C-SPINE (PLATE, 18 SCREWS, 2 BARS)) Hypertension: Yes Musculoskeletal: Yes Neurologic: No Reproductive: No Respiratory: Yes (SLEEP APNEA, TRACHEOTOMY: 2014) Pneumonia: Yes Sleep Apnea: Yes (WEARS CPAP) ?: Not Past Surgical History Body Medical Devices: screws and pin to cervical spine Eye Surgery: Yes (BILATERAL CATARACT) Oral Surgery: Yes (EXTRACTIONS) Tonsillectomy: Yes Other Surgery: Yes (Tyrel. hernia repair, carpel tunnel, cervical spine surgery) Social History Alcohol Use: No (QUIT 1988) Tobacco Use: No (QUIT 1998) Substance Use: No Allergies-Medications (Allergen,Severity, Reaction): Coded Allergies: hydrocodone (Verified Allergy, Mild, 06/29/17) Patient started having redness around the mouth, chills, and slight swelling of the tongue. amitriptyline (Verified Allergy, Unknown, B/P PROB, 06/29/17) ciprofloxacin (Verified Allergy, Unknown, 06/29/17) dexamethasone (Verified Allergy, Unknown, 06/29/17) fosinopril (Verified Allergy, Unknown, 06/29/17) gabapentin (Verified Allergy, Unknown, 06/29/17) sulindac (Verified Allergy, Unknown, 06/29/17) Reported Meds & Prescriptions Reported Meds & Active Scripts Active Keflex (Cephalexin) 500 Mg Cap 500 Mg PO Q6H 7 Days Plavix (Clopidogrel Bisulfate) 75 Mg Tab 75 Mg PO DAILY 30 Days Oxycodone (Oxycodone HCl) 5 Mg Cap 5 Mg PO Q6H PRN Reported Flomax (Tamsulosin HCl) 0.4 Mg Cap 0.8 Mg PO HS Cozaar (Losartan Potassium) 100 Mg Tab 100 Mg PO DAILY Fluticasone Nasal [place] 50 Mcg/Act Naspr 2 [place] EACH NARE DAILY 50 mcg/spray Lipitor (Atorvastatin Calcium) 20 Mg Tab 10 Mg PO HS Amlodipine (Amlodipine Besylate) 10 Mg Tab 10 Mg PO DAILY Zoloft (Sertraline HCl) 100 Mg Tab 150 Mg PO DAILY Pramipexole (Pramipexole Dihydrochloride) 1 Mg Tab 1 Mg PO HS Omeprazole 20 Mg Tab 20 Mg PO DAILY Ipratropium Nasal 0.06% [place] 2 [place] EACH NARE BID Aspirin Adult Low Strength (Aspirin) 81 Mg Tabdr 81 Mg PO DAILY Alprazolam 0.5 Mg Tab 0.5 Mg PO BID PRN Review of Systems Except as stated in HPI: all other systems reviewed are Neg General / Constitutional: No: Fever, Chills Gastrointestinal: Positive: Diarrhea, Hematochezia, Constipation, No: Nausea Physical Exam Narrative GENERAL: Awake and alert and in no distress. SKIN: warm/dry. Normal color and turgor. HEAD: Normocephalic. Atraumatic. EYES: Pupils equal and round. No scleral icterus. No injection or drainage. ENT: No nasal bleeding or discharge. Mucous membranes pink and moist. NECK: Trachea midline. Full range of motion without pain.. CARDIOVASCULAR: Regular rate and rhythm. Heart sounds normal. RESPIRATORY: No accessory muscle use. Clear to auscultation. Breath sounds equal bilaterally. GASTROINTESTINAL: Abdomen soft. Nontender. Bowel sounds present. Nondistended. RECTAL: Firm but not hard brown stool in the rectal vault. No external hemorrhoids noted. MUSCULOSKELETAL: No obvious deformities. NEUROLOGICAL: Awake and alert. No obvious cranial nerve deficits. Motor grossly within normal limits. Normal speech. PSYCHIATRIC: Appropriate mood and affect; insight and judgment normal. Data Data Last Documented VS Vital Signs Date Time Temp Pulse Resp B/P (MAP) Pulse Ox O2 Delivery O2 Flow Rate FiO2 06/29/17 12:56 98.6 75 18 170/79 (109) 99 Orders Orders Complete Blood Count With Diff (06/29/17 15:21) Basic Metabolic Panel (Bmp) (06/29/17 15:21) Urinalysis - C+S If Indicated (06/29/17 15:21) Iv Access Insert/Monitor (06/29/17 15:21) Ondansetron Inj (Zofran Inj) (06/29/17 15:30) Sodium Chlor 0.9% 1000 Ml Inj (Ns 1000 M (06/29/17 15:21) Sodium Chloride 0.9% Flush (Ns Flush) (06/29/17 15:30) C Diff Toxin Pcr (06/29/17 15:21) Enteric Path (Stool) (06/29/17 15:21) Labs Laboratory Tests Test 06/29/17 15:50 White Blood Count 6.8 TH/MM3 Red Blood Count 4.80 MIL/MM3 Hemoglobin 14.0 GM/DL Hematocrit 41.2 % Mean Corpuscular Volume 85.8 FL Mean Corpuscular Hemoglobin 29.2 PG Mean Corpuscular Hemoglobin Concent 34.0 % Red Cell Distribution Width 13.5 % Platelet Count 279 TH/MM3 Mean Platelet Volume 8.6 FL Neutrophils (%) (Auto) 54.7 % Lymphocytes (%) (Auto) 30.6 % Monocytes (%) (Auto) 11.0 % Eosinophils (%) (Auto) 2.5 % Basophils (%) (Auto) 1.2 % Neutrophils # (Auto) 3.7 TH/MM3 Lymphocytes # (Auto) 2.1 TH/MM3 Monocytes # (Auto) 0.7 TH/MM3 Eosinophils # (Auto) 0.2 TH/MM3 Basophils # (Auto) 0.1 TH/MM3 CBC Comment DIFF FINAL Differential Comment MDM Medical Decision Making Medical Screen Exam Complete: Yes Emergency Medical Condition: Yes Medical Record Reviewed: Yes (PLEASE SEE HPI FOR PERTINENT REVIEW OF RECORDS. OTHER MEDICAL HX: HTN, DM (diet controlled)) Differential Diagnosis Differential diagnosis of diarrhea includes but is not limited to early enteritis, bacterial enteritis, antibiotic induced diarrhea, irritable bowel syndrome Narrative Course This patient presents complaining with a foul taste in his mouth, nausea and alternating diarrhea and constipation since being discharged from the hospital on about June 09 following treatment for peripheral artery disease in his right lower extremity. He was given antibiotics during that hospitalization. He reports occasional blood in his stool. Routine abdominal labs are pending. He is being treated with a bolus of fluid and Zofran. CBC Diagram 06/29/17 15:50 BMP is pending. I have ordered stool studies. This patient will likely be stable for discharge to home. His care is being turned over to the oncoming provider pending his chemistries. [facility] Point of Care Internal Pos. & Neg. Controls: Passed Fecal Specimen Occult Blood: Negative Diagnosis Primary Impression: Nausea Condition: Stable Kylie Blair MD Jun 29, 2017 15:54
[2017-06-29 16:33] LABS: AUTOMATED NEUTROPHIL # 3.7 TH/MM3 (1.8-7.7); BASOPHIL # 0.1 TH/MM3 (0-0.2); BASOPHIL % 1.2 % (0.0-2.0); EOSINOPHIL # 0.2 TH/MM3 (0-0.4); EOSINOPHIL % 2.5 % (0.0-4.0); HEMATOCRIT 41.2 % (39.0-51.0); LYMPH % 30.6 % (9.0-44.0); LYMPHOCYTE # 2.1 TH/MM3 (1.0-4.8); MEAN CELL VOLUME 85.8 FL (80.0-100.0); MEAN CORPUSCULAR HEMOGLOBIN 29.2 PG (27.0-34.0); MEAN PLATELET VOLUME 8.6 FL (7.0-11.0); MONOCYTE # 0.7 TH/MM3 (0-0.9); NEUT % 54.7 % (16.0-70.0); PLATELET COUNT 279 TH/MM3 (150-450); RED CELL DISTRIBUTION WIDTH 13.5 % (11.6-17.2); WHITE BLOOD COUNT 6.8 TH/MM3 (4.0-11.0)
[2017-06-29] MEDS ORDERED: HYDR25TA5 PO (16:50)
[2017-06-29] MEDS ORDERED: COLC1CAP3 PO (16:50)
[2017-06-29] MEDS ORDERED: LUBR0.5D2 EACH EYE (16:50)
[2017-06-29] MEDS ORDERED: MELA5 PO (16:50)
[2017-06-29] MEDS ORDERED: MELO15TA20 PO (16:50)
[2017-06-29] MEDS ORDERED: DULO1CAP2 PO (16:50)
[2017-06-29] MEDS ORDERED: VENTAER INH (16:50)
[2017-06-29] MEDS ORDERED: LIDO1PAD52 TOPICAL (16:50)
[2017-06-29] MEDS ORDERED: HYDR-755 PO (16:50)
[2017-06-29] MEDS ORDERED: BACL10TA PO (16:50)
[2017-06-29 17:01] LABS: BICARBONATE 26.9 MEQ/L (21.0-32.0); CALCIUM 9.2 MG/DL (8.5-10.1); CREATININE 1.03 MG/DL (0.60-1.30)
[2017-06-29] MEDS ORDERED: POTASSIUM CHLORIDE 20 MEQ CONTROLLED RELEASE TAB PO ONE (17:15)
[2017-06-29 17:40] LABS: BILIRUBIN, URINE NEG (NEG); BLOOD, URINE NEG (NEG); GLUCOSE,URINE NEG (NEG); KETONE, URINE NEG (NEG); NITRITE,URINE NEG (NEG); PH, URINE 5.5 (5.0-8.5); URINE COLOR YELLOW (YELLW/STRAW); URINE LEUKOCYTE ESTERASE NEG (NEG)
[2017-06-29] MEDS ORDERED: ZOFR4TAB3 SL (18:07)
--- NOTE | 2017-06-29 18:07 | PD ---
Physical Exam Date Seen by Provider: Jun 29, 2017 Time Seen by Provider: 18:03 Narrative 77-year-old male came to the emergency room with history of nausea and metallic taste in his mouth. He was seen by the previous ER physician. Please refer to her history and physical for further details. Sign out was to follow-up on his blood test results and UA. Patient was also complaining of some diarrhea and stool was sent for C. difficile. Blood test results are back in within acceptable limits. UA is negative. If is pending. I went to see the patient and he did not appear to be in any distress. He once again told me about the nausea and the metallic taste. The metallic taste in his mouth is really bothering him and he says that he finished taking his antibiotics that were started in the hospital one week ago. I recommended taking lemon lozenges, mental tablets etc. to get the taste out of the mouth. Also he should give 2 weeks' time for the symptoms to get better. He'll be discharged home on a prescription for nausea medication. I'm comfortable discharging him home. I went over the test results with him. Data Data Last Documented VS Vital Signs Date Time Temp Pulse Resp B/P (MAP) Pulse Ox O2 Delivery O2 Flow Rate FiO2 06/29/17 12:56 98.6 75 18 170/79 (109) 99 Orders Orders Complete Blood Count With Diff (06/29/17 15:21) Basic Metabolic Panel (Bmp) (06/29/17 15:21) Urinalysis - C+S If Indicated (06/29/17 15:21) Iv Access Insert/Monitor (06/29/17 15:21) Ondansetron Inj (Zofran Inj) (06/29/17 15:30) Sodium Chlor 0.9% 1000 Ml Inj (Ns 1000 M (06/29/17 15:21) Sodium Chloride 0.9% Flush (Ns Flush) (06/29/17 15:30) C Diff Toxin Pcr (06/29/17 15:21) Enteric Path (Stool) (06/29/17 15:21) Potassium Chloride (Kcl) (06/29/17 17:15) Ed Discharge Order (06/29/17 18:02) Labs Laboratory Tests Test 06/29/17 15:50 06/29/17 17:17 06/29/17 17:19 White Blood Count 6.8 TH/MM3 Red Blood Count 4.80 MIL/MM3 Hemoglobin 14.0 GM/DL Hematocrit 41.2 % Mean Corpuscular Volume 85.8 FL Mean Corpuscular Hemoglobin 29.2 PG Mean Corpuscular Hemoglobin Concent 34.0 % Red Cell Distribution Width 13.5 % Platelet Count 279 TH/MM3 Mean Platelet Volume 8.6 FL Neutrophils (%) (Auto) 54.7 % Lymphocytes (%) (Auto) 30.6 % Monocytes (%) (Auto) 11.0 % Eosinophils (%) (Auto) 2.5 % Basophils (%) (Auto) 1.2 % Neutrophils # (Auto) 3.7 TH/MM3 Lymphocytes # (Auto) 2.1 TH/MM3 Monocytes # (Auto) 0.7 TH/MM3 Eosinophils # (Auto) 0.2 TH/MM3 Basophils # (Auto) 0.1 TH/MM3 CBC Comment DIFF FINAL Differential Comment Blood Urea Nitrogen 22 MG/DL Creatinine 1.03 MG/DL Random Glucose 93 MG/DL Calcium Level 9.2 MG/DL Sodium Level 141 MEQ/L Potassium Level 3.3 MEQ/L Chloride Level 105 MEQ/L Carbon Dioxide Level 26.9 MEQ/L Anion Gap 9 MEQ/L Estimat Glomerular Filtration Rate 70 ML/MIN Urine Color YELLOW Urine Turbidity CLEAR Urine pH 5.5 Urine Specific [place] 1.015 Urine Protein NEG mg/dL Urine Glucose (UA) NEG mg/dL Urine Ketones NEG mg/dL Urine Occult Blood NEG Urine Nitrite NEG Urine Bilirubin NEG Urine Urobilinogen LESS THAN 2.0 MG/DL Urine Leukocyte Esterase NEG Urine WBC LESS THAN 1 /hpf Microscopic Urinalysis Comment CULT NOT INDICATED Stool C. difficile Toxin (PCR) NEGATIVE Stl C. difficile Toxin Epiderm 027 PRESUMPTIVE NEGATIVE MDM Supervised Visit with DOROTHEA: No Diagnosis Primary Impression: Nausea Referrals: Primary Care Physician Additional Instruction: Please return to the ER if condition worsens or any other new concerns. Otherwise follow up with her primary care. Take the medication as per the prescription direction. Med/Other Pt SpecificInfo: Prescription(s) given Scripts Ondansetron Odt (Zofran Odt) 4 Mg Tab 4 MG SL Q6HR Y for Nausea/Vomiting, #15 TAB 0 Refills Prov: Prince Cottrell MD 06/29/17 Disposition: 01 DISCHARGE HOME Condition: Stable Prince Cottrell MD Jun 29, 2017 18:07
== END 2017-06-29 19:10 | disposition home or self-care (01) ==
LOC: NEPD 12:51
DX: R11.0 Nausea (principal); R19.7 Diarrhea, unspecified; B97.89 Other viral agents as the cause of diseases classified elsewhere; I10 Essential (primary) hypertension; I25.10 Atherosclerotic heart disease of native coronary artery without angina pectoris; E78.00 Pure hypercholesterolemia, unspecified; F41.9 Anxiety disorder, unspecified; F32.9 Major depressive disorder, single episode, unspecified; Z88.5 Allergy status to narcotic agent; Z88.8 Allergy status to other drugs, medicaments and biological substances; Z79.899 Other long term (current) drug therapy
CPT/HCPCS: 80048; 81001; 85025; 87493; 87506; 96361; 96374; 99284; J2405; J7030